=== PATIENT | male | born 2000 | race Caucasian/White ===

== ENCOUNTER 2020-12-12 10:24 | Outpatient (CLI) | payer BC, SELFPAY ==
--- NOTE | 2020-12-12 11:00 | ECG_ITS ---
Measurements Intervals [place] Rate: 103 P: 66 IA: 155 QRS: 95 QRSD: 110 T: 45 QT: 281 QTc: 369 Interpretive Statements SINUS TACHYCARDIA RIGHT AXIS DEVIATION INTRAVENTRICULAR CONDUCTION DELAY POOR R WAVE PROGRESSION, ANTERIOR LEADS BASELINE ARTIFACT- I, III, AVR, AVL, AVF BORDERLINE ECG Electronically Signed On 12-12-2020 10:48:20 CDT by Jaspreet Ruiz D.O.
== END 2020-12-12 10:25 | disposition home or self-care (01) ==
LOC: ANHSURGERY 10:29
PROVIDERS: PCP Internal Medicine; Visit Provider Otolaryngology
DX: Z01.818 Encounter for other preprocedural examination (principal); I10 Essential (primary) hypertension
CPT/HCPCS: 93005

== ENCOUNTER 2021-03-10 00:41 | Day surgery (SDC) | payer BC, SELFPAY ==
[2020-12-11 15:13] VITALS: BMI 51.0
[2021-03-03 14:40] VITALS: BMI 47.7
--- NOTE | 2021-03-05 07:55 | PM.IMHP ---
H&P: HPI History of Present Illness Date/Time: 03/05/21 07:55 Chief Complaint: Septal deviation, inferior turbinate hypertrophy, nasal congestion, nasal obstruction. Narrative: Patient presents for planned surgical procedures. No change in symptoms. No change in history. Review of Systems Constitutional: Constitutional: Denies fatigue, Denies fever(s) and Denies lethargy Eyes: Eyes: Denies blurry vision and Denies change in vision ENT: Reports as per HPI Cardiovascular: Cardiovascular: Denies chest pain Respiratory: Respiratory: Denies cough Endocrine: Endocrine: Denies fatigue Hematologic/Lymphatic: Hematologic/Lymphatic: Denies easy bleeding, Denies easy bruising and Denies lymphadenopathy Allergic/Immunologic: Allergic/Immunologic: Denies seasonal rhinorrhea [facility] Family History Family History Father Alcohol abuse by father Depression Hypertension Mother Depression Diabetes mellitus Grandparent Depression Thyroid disorder Social History Social History Smoking status: Never smoker Second hand tobacco smoke exposure: No Alcohol intake: never Substance use: former Substance use type: marijuana Other substance usage details: pt stated used daily, stopped four months ago Last use: november 2020 Living arrangements: with family Spiritual care concerns: No Agree to blood products: Yes Meds Home Medications and Allergies Home Medications Medication Instructions Recorded Confirmed Type nystatin 100,000 unit/gram topical 1 applic TOPICAL BID #60 g 07/14/20 12/11/20 Rx powder sertraline 100 mg tablet 100 mg PO DAILY 07/14/20 03/03/21 History amlodipine 5 mg tablet 5 mg PO DAILY #30 tablet 08/11/20 12/11/20 Rx mometasone 1 applic TOPICAL BID 12/11/20 12/11/20 History venlafaxine 150 mg PO DAILY 12/12/20 12/12/20 History Allergies Allergy/AdvReac Type Severity Reaction Status Date / Time vancomycin Allergy Intermediate SWELLING/ITCHING/ ELIO Verified 03/03/21 14:36 SYNDROME Exam Const: General: cooperative, healthy appearing, comfortable, well developed and alert HENMT: Head: normal to inspection, normocephalic and atraumatic Ears: hearing grossly normal bilaterally, external ears normal, TM's normal bilaterally and EAC's normal General nose exam: Normal external nose present, Normal nares present, No nasal polyps present and Other nasal findings present ( Inferior turbinate hypertrophy, septal deviation) Face and sinus: normal facial exam Mouth: Yes Normal oral and palatal mucosa present, Yes lip normal, Yes tongue normal, Yes oropharynx normal and Yes moist mucous membranes Teeth and gingiva: dentition normal and gingiva normal Throat: posterior oropharynx normal, tonsils normal and uvula midline Eyes: General: appearance normal, both eyes and all related structures Periorbital: periorbital findings normal Eyelids: eyelids normal Conjunctivae: conjunctivae normal Sclera: sclerae normal Neck: Neck: normal visual inspection, full ROM and no lymphadenopathy Thyroid: thyroid normal Lymphatic: no lymphadenopathy noted Resp: Effort & Inspection: normal respiratory effort and able to speak in complete sentences Cardio: Jugular venous distension: no JVD Neuro: Cranial nerves: Yes CN's II-XII intact bilaterally Assessment and Plan Assessment and plan (1) Nasal septal deviation: Code(s): J34.2 - Deviated nasal septum Status: Acute Assessment and Plan: plan is for the OR for endoscopic assisted septoplasty and inferior turbinate reduction, total operative time 1:00 a.m.. Risks were discussed including failure to resolve symptoms for laid to the valve, bleeding infection blindness CSF leak brain damage change in vision postoperative bleeding postoperative pain need to miss work septal perforation. Patient voiced understanding of
--- NOTE | 2021-03-09 16:18 | WPDANESEPPF ---
Anes - Initial Pre Proc Eval Procedure: Operation Date: 03/10/21 10:00 Proposed Procedures p Septoplasty - Gilberto Rodríguez MD s Bilateral Inferior Turbinectomy - Gilberto Rodríguez MD Date/Time: 03/09/21 16:18 Surgeon: Gilberto Rodríguez MD Pre Op Diagnosis: septal deviation, turbinate hypertrophy Patient Data Age: 20 Gender: M Height: 1.73 m Weight: 142.4 kg Allergies Allergy/AdvReac Type Severity Reaction Status Date / Time vancomycin Allergy Intermediate SWELLING/ITCHING/ ELIO Verified 03/10/21 07:55 SYNDROME Home Medications Medication Instructions Recorded Confirmed Type nystatin 100,000 unit/gram topical 1 applic TOPICAL BID #60 g 07/14/20 03/10/21 Rx powder sertraline 100 mg tablet 100 mg PO DAILY 07/14/20 03/10/21 History amlodipine 5 mg tablet 5 mg PO DAILY #30 tablet 08/11/20 03/10/21 Rx mometasone 1 applic TOPICAL BID 12/11/20 12/11/20 History venlafaxine 150 mg PO DAILY 12/12/20 03/10/21 History Patient hx anesthesia problems: none Family hx anesthesia problems: none Results Review: All pre-operative results and documents have been reviewed as part of the pre-operative evaluation. [facility] Past Medical History Medical History (Updated 03/09/21 @ 16:19 by Tyler Dean MD) Anxiety Depression Elevated blood pressure reading in office without diagnosis of hypertension HTN (hypertension) Morbid obesity Morbid obesity with BMI of 45.0-49.9, adult Nasal folliculitis Nasal obstruction Psoriasis Tinea corporis Family History Family History Father Alcohol abuse by father Depression Hypertension Mother Depression Diabetes mellitus Grandparent Depression Thyroid disorder Social History Social History Smoking status: Never smoker Second hand tobacco smoke exposure: No Alcohol intake: never Substance use: former Substance use type: marijuana Other substance usage details: pt stated used daily, stopped four months ago Last use: november 2020 Living arrangements: with family Spiritual care concerns: No Agree to blood products: Yes Anes - Eval Final PreProcedure Day of Procedure 03/09/21 16:18 Patient weight: morbidly obese Heart: regular rate and rhythm Lungs: clear to auscultation and normal air movement Airway: Mallampati scale class II Neurological: alert and oriented Last oral intake: >/= 8 hours ASA classification: III Emergent: no Anesthetic plan: proceed Anesthesia type and monitoring: general ETT Results Review: All pre-operative results and documents have been reviewed as part of the pre-operative evaluation. Informed Consent: The patient's anesthetic plan and its attendant risks and benefits were discussed with the patient/family/POA. Questions were solicited and answers provided to the satisfaction of the patient/family/POA.
[2021-03-10] VITALS (7 sets, daily range): BP systolic 141–162; BP diastolic 68–94; PULSE 85–114; RESP 18–26; TEMP 36.9–37; O2SAT 92–99
--- NOTE | 2021-03-10 07:09 | WPDHPUPDATE1 ---
History and Physical Update Update Date/Time: 03/10/21 07:09 History and Physical has been reviewed, including an updated exam of the patient. There are NO changes in the patient's condition. Risks, benefits, and alternatives have been discussed and questions answered. Patient agrees to proceed with procedure.
[2021-03-10] MEDS: ACETAMINOPHEN 500 MG TABLET 1000 MG PO (08:00)
[2021-03-10] MEDS: LACTATED RINGERS 1,000 ML 30 ML IV CONT ×2 (08:35→11:03)
[2021-03-10] MEDS: ceFAZolin 3 GM/D5W 100 ML 100 ML IVPB (09:42)
[2021-03-10] MEDS: OXYMETAZOLINE HCL 0.05% NAS 15 ML BTL (*BKC) 1 SPRAY NASAL (10:01)
[2021-03-10] MEDS: LIDO 1%/EPINEPHRINE 1:100,000 50 ML VIAL 10 ML INFILTRATE (10:30)
--- NOTE | 2021-03-10 11:20 | W.PM.PROC2 ---
Procedure Note - Detailed Date of Procedure 03/10/21 Pre-op Diagnosis septal deviation, turbinate hypertrophy, nasal obstruction, nasal congestion Post-op Diagnosis same Procedure Performed 1. Endoscopic assisted septoplasty 2. Bilateral inferior turbinate submucosal resection with outfracture Surgeon Gilberto Rodríguez MD Anesthesia general Indications See above Findings Left posterior septal deviation bilateral inferior turbinate hypertrophy Description of Procedure The patient was correctly identified consent verified in the preoperative holding area. Patient brought to operating room. Time-out performed. Patient prepped and draped for the aforementioned procedure. Second time-out performed. Afrin-soaked pledgets placed in bilateral nasal passages allowed to sit for 5 minutes then removed. Aforementioned findings noted under and 0 degree endoscopic guidance. 8 cc of 1% lidocaine with 1 100,000 parts epinephrine injected in the bilateral nasal septum in the submucoperichondrial plane. Osorio incision made on the left left mucoperichondrial flap elevated. Antione made with 15 blade. Seven [place] suction utilized to elevate flap. Septum crossed over the caudal elevator. No perforations thus far. Right-sided flap elevated. Deviated nasal septum removed with combination of osteotome Alexis Conde Balta and D blade. Antione incision closed with 3 interrupted 5 0 fast gut sutures. Small tear inferiorly. Inferior turbinates entered anteriorly following application or injection of 1% lidocaine with 100,000 parts epinephrine. Entered anteriorly using 2 mm turbinate blade on the microdebrider. Debrided in the submucosal plane. Outfractured using a [place] elevator. Good reduction noted. Posterior mulberry tips noted. These were cauterized using suction Bovie electrocautery at a setting of 15. Even better reduction following cautery. Hemostasis excellent. Posterior nasal passages suction to the posterior choana. No further bleeding. Total blood loss approximately 6 cc. Patel splints placed and sutured anteriorly using a 3-0 mattress nylon suture. This marked the end of the case. Care the patient was turned over to Anesthesiology. There were no complications. I performed all dictated portions of the procedure. Estimated Blood Loss -5.0 Drains No Packing No Pathology none sent Complications No immediate complications Condition stable Disposition PACU
== END 2021-03-10 12:48 | disposition home or self-care (01) ==
PROVIDERS: PCP Internal Medicine; Visit Provider Otolaryngology
PROC: (CPT 30520; principal; 2021-03-10 10:00)
PROC: (CPT 30140; 2021-03-10 10:00)
DX: J34.2 Deviated nasal septum (principal); J34.3 Hypertrophy of nasal turbinates; R09.81 Nasal congestion; I10 Essential (primary) hypertension; F41.8 Other specified anxiety disorders; L40.9 Psoriasis, unspecified; E66.01 Morbid (severe) obesity due to excess calories; Z68.42 Body mass index [BMI] 45.0-49.9, adult
CPT/HCPCS: 30140; 30520; A9270; J0330; J0690; J1100; J2250; J2405; J2704; J3010; J7120

== ENCOUNTER 2021-03-11 17:28 | Emergency (ER) | payer BC, SELFPAY ==
[2021-03-11 17:33] VITALS: BP 149/73; PULSE 99; RESP 18; TEMP 37.2; O2SAT 100
--- NOTE | 2021-03-11 17:45 | ED.URI ---
HPI - URI/Sore Throat General Chief Complaint: Upper Respiratory Infection Stated Complaint: hurts to breathe/joint pain s/p surgery Source: patient and family Mode of arrival: ambulatory Limitations: no limitations History of Present Illness HPI Narrative: Augusto is a 20-year-old male patient who ambulated into the [facility]. Patient states yesterday he had a septoplasty turbinectomy done by Dr. Rodríguez. Patient states around 1230 he felt like it hurts to take a deep breath and felt sore throat pain and joint pain. Patient states his fever. for at home was 97.6 patient denies any shortness of breath, denies any other symptoms at all. Patient is accompanied by his grandmother who states he has no symptoms whatsoever. MD elicited complaint: sore throat Related Data Home Medications Medication Instructions Recorded Confirmed sertraline 100 mg tablet 100 mg PO DAILY 07/14/20 03/10/21 mometasone 1 applic TOPICAL BID 12/11/20 12/11/20 venlafaxine 150 mg PO DAILY 12/12/20 03/10/21 Allergies Allergy/AdvReac Type Severity Reaction Status Date / Time vancomycin Allergy Intermediate SWELLING/ITCHING/ ELIO Verified 03/10/21 07:55 SYNDROME Review of Systems Review of Systems: CONSTITUTIONAL: Denies body aches, fever, chills, or sweats. EYES: Denies visual changes, redness, or discharge. ENT: Denies rhinorrhea, congestion, +sore throat, denies otalgia. CARDIOVASCULAR: Denies chest pain, palpitations, or edema. RESPIRATORY: Denies cough or dyspnea. states he has pain when taking a deep breath, denies shortness of breath GASTROINTESTINAL: Denies abdominal pain, nausea, vomiting, or diarrhea. GENITOURINARY: Denies dysuria or hematuria. SKIN: Denies rash, itching, or wounds. MUSCULOSKELETAL: Denies back pain, joint pain, or myalgia. NEUROLOGIC: Denies headache, numbness, tingling, or weakness. PSYCH: Denies depression or anxiety. All systems reviewed & are unremarkable except as noted in HPI and below PMFSH Past Medical History Medical History Anxiety Depression Elevated blood pressure reading in office without diagnosis of hypertension HTN (hypertension) Morbid obesity Morbid obesity with BMI of 45.0-49.9, adult Nasal folliculitis Nasal obstruction Psoriasis Tinea corporis Family History Family History Father Alcohol abuse by father Depression Hypertension Mother Depression Diabetes mellitus Grandparent Depression Thyroid disorder Social History Social History Smoking status: Never smoker Second hand tobacco smoke exposure: No Alcohol intake: never Substance use: former Substance use type: marijuana Other substance usage details: pt stated used daily, stopped four months ago Last use: november 2020 Spiritual care concerns: No Agree to blood products: Yes Exam Narrative: GENERAL: Well-appearing, well-nourished, and in no acute distress. HEAD: Normocephalic, atraumatic. EYES: EOMI. No redness or drainage. Conjunctivae normal. ENT: Mucous membranes pink and moist. Nares with surgical packing bilaterally. No rhinorrhea. TMs normal bilaterally. Throat normal. Uvula midline. NECK: Normal AROM. Supple. No lymphadenopathy. CHEST: No respiratory distress. Clear to auscultation. HEART: Regular rate and rhythm. No murmur appreciated. Normal peripheral pulses. MUSCULOSKELETAL: No bony tenderness. EXTREMITIES: Normal range of motion. No edema. SKIN: Warm, dry, no rash. Capillary refill normal. Normal skin turgor. NEURO: No focal deficits. Alert and oriented x3. Gait steady. PSYCH: Normal affect. No signs of depression or anxiety. Course Vital Signs Vital signs: Vital Signs Temperature 37.2 C 03/11/21 17:33 Pulse Rate 99 03/11/21 17:33 Respiratory Rate 18 03/11/21 17:33 Blood Pressure 149/73 H 03/11/21
== END 2021-03-11 18:05 | disposition home or self-care (01) ==
PROVIDERS: Emergency Provider Nurse Practitioner Family; PCP Internal Medicine
DX: B34.9 Viral infection, unspecified (principal); I10 Essential (primary) hypertension; E66.01 Morbid (severe) obesity due to excess calories; Z68.42 Body mass index [BMI] 45.0-49.9, adult; F41.9 Anxiety disorder, unspecified; F32.A Depression, unspecified
CPT/HCPCS: 99211; G0463

== ENCOUNTER → 2021-06-04 02:06 | Outpatient (CLI) | payer BC, SELFPAY ==
[2021-06-04 15:01] LABS: Influenza A QL RT-PCR Negative (Negative); Influenza B QL RT-PCR Negative (Negative)
[2021-06-04 21:13] LABS: SARS-CoV-2 RNA PCR Negative
== END ==
PROVIDERS: PCP Internal Medicine; Visit Provider Internal Medicine
DX: R09.89 Other specified symptoms and signs involving the circulatory and respiratory systems (principal); Z20.822 Contact with and (suspected) exposure to COVID-19
CPT/HCPCS: 87502; C9803; U0003; U0005

== ENCOUNTER 2021-06-05 11:50 | Outpatient (CLI) | payer BC, SELFPAY ==
--- NOTE | ~2021-06-05 | XR_ITS ---
XR chest 2V DATE: 06/05/2021 12:03 INDICATION: Cough. Bronchitis. TECHNIQUE: PA and lateral views COMPARISON: None FINDINGS: Normal heart size. No hilar or mediastinal enlargement. No pulmonary infiltrate or consolid ation, pleural effusion or pulmonary vascular congestion or pneumothorax. IMPRESSION: Negative Reviewed, dictated and finalized at location A. [employer] IMPRESSION: Negative
== END 2021-06-05 11:51 | disposition home or self-care (01) ==
LOC: ANHIMG 11:53
PROVIDERS: PCP Internal Medicine; Visit Provider Internal Medicine
DX: J40 Bronchitis, not specified as acute or chronic (principal)
CPT/HCPCS: 71046

== ENCOUNTER 2021-06-22 20:47 | Emergency (ER) | payer BC, SELFPAY ==
--- NOTE | ~2021-06-22 | CT_ITS ---
EXAMINATION: CT abdomen pelvis w con DATE: 06/22/2021 22:19 INDICATION: Right lower quadrant abdominal pain. TECHNIQUE: Computed tomography (CT) of the abdomen and pelvis was performed with 100 mL Omnipaque 350 intravenous contrast. Automated exposure control and iterative reconstruction technique were employe d. The dose-length product was 2485.56 mGy-cm. COMPARISON: None. FINDINGS: The visualized portions of the lung bases are clear without pneumonia or pleural effusion. The heart size is normal. No pericardial effusion. The liver, gallbladder, spleen, pancreas, adrenal glands, and kidneys are normal. There are no dilated loops of bowel. The appendix is normal. There ar e no pathologically enlarged lymph nodes. There is no free intraperitoneal fluid. There are a few anisha ign bone islands in the pelvis. There are chronic bilateral L5 pars defects. There is 3 mm anterolist hesis of L5 on S1. There are Schmorl's nodes at most levels. IMPRESSION: 1. No etiology for the patient's symptoms. Reviewed, dictated and finalized at location E. [facility]
[2021-06-22 20:54] VITALS: BP 159/92; PULSE 77; RESP 20; TEMP 37.1; O2SAT 100
[2021-06-22 21:50] LABS: Basophils Absolute Auto 0.1 K/mm3 (0.0-0.1); Basophils Percent Auto 0.6 % (0.2-1.2); Eosinophils Absolute Auto 1.2 K/mm3 (0-0.3); Eosinophils Percent Auto 9.9 % (0-4.4); Hemoglobin 12.2 g/dL (14.0-18.0); Immature Granulocyte Absolute 0.06 K/mm3 (0.00-0.031); Immature Granulocyte Percent A 0.5 % (0-0.5); Lymphocytes Percent Auto 15.4 % (18.3-44.2); Mean Corpuscular HGB Conc 29.8 g/dl (32-36); Mean Corpuscular Hemoglobin 22.8 pg (26-34); Mean Corpuscular Volume 76.5 fl (80-100); Mean Platelet Volume 10.7 fl (7.4-10.4); Monocytes Absolute Auto 1.1 K/mm3 (0.1-0.6); Monocytes Percent Auto 8.5 % (2.6-8.5); Neutrophils Percent Auto 65.1 % (45.5-73.1); Platelet Count Result 373 k/mm3 (150-375); Red Blood Count 5.36 M/mm3 (4.6-6.20); Red Cell Distribution Width 15.6 % (11.5-14.5); White Blood Count 12.3 K/mm3 (4.5-10.0)
[2021-06-22 21:55] LABS: Add Urine Microscopic? NO; Appearance Urine Clear (Clear); Bilirubin Urine Negative (Negative); Blood Urine Negative (Negative); Color Urine Yellow (Yellow); Glucose Urine UA Negative (Negative); Ketones Urine Negative (Negative); Leukocyte Esterase Ur Negative LEU/UL (Negative); Nitrate Urine Negative (Negative); Protein Urine Negative (Negative); Specific Grav Ur 1.021 (1.001-1.035); Urobilinogen Urine Negative mg/dL (<2.0)
[2021-06-22 21:59] LABS: Platelet Estimate Adequate (Adequate)
[2021-06-22 22:00] LABS: Alanine Aminotransferase 37 U/L (4-50); Albumin Level 4.6 g/dL (3.5-5.1); Alkaline Phosphatase 107 U/L (38-126); Anion Gap 5 mmol/L (8-16); Aspartate Amino Transferase 33 U/L (17-59); Bilirubin,Total 0.4 mg/dL (0.2-1.3); Blood Urea Nitrogen 11 mg/dL (9-20); Calcium 9.1 mg/dL (8.4-10.2); Carbon Dioxide 27 mmol/L (22-30); Chloride 107 mmol/L (98-107); Estimated CRCL calculation 211 ml/min; Estimated Glomerular Filt Rate > 60; Glucose 97 mg/dL (65-110); Hypochromasia 1+ (NORMAL); Ovalocytes 1+ (NORMAL); Potassium 4.3 mmol/L (3.4-5.0); Sodium 139 mmol/L (137-145)
--- NOTE | 2021-06-22 22:42 | ED.ABDPAIN ---
HPI - Abdominal Pain General Chief Complaint: Abdominal Pain Stated Complaint: RLQ abdominal pain Time Seen by Provider: 06/22/21 21:34 Source: patient and RN notes reviewed Mode of arrival: ambulatory History of Present Illness HPI narrative: 20-year-old male presenting to the emergency department for evaluation of intermittent right sided abdominal pain. Patient had been following up with his primary care physician for this pain and did have an outpatient CT scan ordered. Patient states that the right lower quadrant pain became significantly worse today so he presented to the emerge department for evaluation. Patient states he was also concerned about some ecchymosis on his abdominal wall. Upon arrival to the emergency department patient states that his pain has currently resolved. Patient states when the pain did occur that he sometimes did have some radiation down to his right testicle. Patient denies any prior history of kidney stones. Patient does have recent history of surgery by ENT Related Data Home Medications Medication Instructions Recorded Confirmed sertraline 100 mg tablet 100 mg PO DAILY 07/14/20 06/05/21 mometasone 1 applic TOPICAL BID 12/11/20 06/05/21 venlafaxine 150 mg PO DAILY 12/12/20 06/05/21 Allergies Allergy/AdvReac Type Severity Reaction Status Date / Time vancomycin Allergy Intermediate SWELLING/ITCHING/ ELIO Verified 06/22/21 20:59 SYNDROME Review of Systems Review of Systems: CONSTITUTIONAL: Denies fever, chills, or sweats. EYES: Denies visual changes, redness, or discharge. ENT: Denies rhinorrhea, congestion, sore throat, or otalgia. CARDIOVASCULAR: Denies chest pain, palpitations, or edema. RESPIRATORY: Denies cough or dyspnea. GASTROINTESTINAL: Right lower quadrant abdominal pain, currently resolved GENITOURINARY: Denies dysuria or hematuria. SKIN: Reports of ecchymosis on abdomen MUSCULOSKELETAL: Denies back pain, joint pain, or myalgia. NEUROLOGIC: Denies headache, numbness, or weakness. PSYCHIATRIC: Denies anxiety or depression. [facility] Past Medical History Medical History Anxiety Depression Elevated blood pressure reading in office without diagnosis of hypertension HTN (hypertension) Morbid obesity Morbid obesity with BMI of 45.0-49.9, adult Nasal folliculitis Nasal obstruction Psoriasis Tinea corporis Family History Family History Father Alcohol abuse by father Depression Hypertension Mother Depression Diabetes mellitus Grandparent Depression Thyroid disorder Social History Social History Smoking status: Never smoker Second hand tobacco smoke exposure: No Alcohol intake: never Substance use: former Substance use type: marijuana Other substance usage details: pt stated used daily, stopped four months ago Last use: november 2020 Spiritual care concerns: No Agree to blood products: Yes Exam Narrative: APPEARANCE: Well appearing, no pain, no distress, well-nourished. HEAD: normocephalic, atraumatic. EYES: PERRLA/EOMI, conjunctivae clear. RESPIRATORY: Airway patent, respirations nonlabored. Clear to auscultation bilaterally, no rales, rhonchi, wheezing. CARDIOVASCULAR: Regular rate and rhythm without murmurs rubs or gallops. ABDOMINAL: Soft, nontender, nondistended, normal bowel sounds MUSCULOSKELETAL: Moves all extremities. Strength/ROM intact, No edema, No calf tenderness. SKIN: Warm, dry. Normal Color, no bruising or ecchymosis on abdominal wall Course Course Emergency Course: Patient was updated the results of the CT scan and labs. All questions concerns were addressed. Patient denies any current abdominal pain. Patient was encouraged to continue to have close follow-up with his primary care physician. Vital Signs Vital signs: Vital Signs Temperature 98.7 F 0
[2021-06-22 23:04] VITALS: BP 133/74; PULSE 84; RESP 18; TEMP 36.7; O2SAT 97
== END 2021-06-22 23:06 | disposition home or self-care (01) ==
PROVIDERS: Emergency Medicine; Emergency Provider Emergency Medicine; PCP Internal Medicine
DX: R10.31 Right lower quadrant pain (principal); F41.9 Anxiety disorder, unspecified; F32.A Depression, unspecified; I10 Essential (primary) hypertension; E66.01 Morbid (severe) obesity due to excess calories; Z68.43 Body mass index [BMI] 50.0-59.9, adult
CPT/HCPCS: 36415; 74177; 80053; 81003; 85025; 99284; Q9967

== ENCOUNTER 2022-01-19 00:46 | Day surgery (SDC) | payer BC, SELFPAY ==
[2022-01-06 12:56] VITALS: BMI 56.9
[2022-01-19] MEDS: LACTATED RINGERS 1,000 ML 150 ML IV CONT (06:26)
--- NOTE | 2022-01-19 06:31 | WPDANESEPPF ---
Anes - Initial Pre Proc Eval Procedure: Operation Date: 01/19/22 07:30 Proposed Procedures p Esophagogastroduodenoscopy & Colonoscopy - Hieu Airas MD Date/Time: 01/19/22 06:31 Surgeon: Hieu Arias MD Pre Op Diagnosis: diarrhea, abdominal pain, KELLI Patient Data Age: 21 Gender: M Height: 1.73 m Weight: 167.9 kg Allergies Allergy/AdvReac Type Severity Reaction Status Date / Time vancomycin Allergy Intermediate SWELLING/ITCHING/ ELIO Verified 01/19/22 06:14 SYNDROME Home Medications Medication Instructions Recorded Confirmed Type nystatin 100,000 unit/gram topical 1 applic topical BID #60 grams 07/14/20 01/06/22 Rx powder sertraline 100 mg tablet 100 mg PO DAILY 07/14/20 01/06/22 History venlafaxine 150 mg 150 mg PO DAILY 12/12/20 01/06/22 History capsule,extended release 24 hr amlodipine 5 mg tablet 5 mg PO DAILY #90 tabs 03/24/21 01/06/22 Rx mupirocin 2 % topical ointment 1 applic topical BID #22 grams 08/10/21 01/06/22 Rx mometasone 0.1 % topical ointment 1 applic topical BID #15 grams 09/24/21 01/06/22 Rx hyoscyamine sulfate 0.125 mg tablet 0.125 mg PO BID diarrhea #60 tabs 11/02/21 01/06/22 Rx ferrous sulfate 325 mg (65 mg 325 mg PO BID #60 tabs 01/05/22 01/06/22 Rx iron) tablet Patient hx anesthesia problems: none Family hx anesthesia problems: none Results Review: All pre-operative results and documents have been reviewed as part of the pre-operative evaluation. [facility] Past Medical History Medical History Anxiety Depression Diarrhea Elevated blood pressure reading in office without diagnosis of hypertension HTN (hypertension) Irritable bowel syndrome with diarrhea Morbid obesity Morbid obesity with BMI of 45.0-49.9, adult Nasal folliculitis Nasal obstruction Psoriasis Tinea corporis Surgical History Surgical History (Updated 01/19/22 @ 06:32 by Nirav Daniel MD) H/O sinus surgery Family History Family History Father Alcohol abuse by father Depression Hypertension Mother Depression Diabetes mellitus Grandparent Depression Thyroid disorder Social History Social History Smoking status: Never smoker Second hand tobacco smoke exposure: No Alcohol intake: never Substance use: never Substance use type: marijuana Other substance usage details: pt stated used daily, stopped four months ago Last use: november 2020 Living arrangements: with family Spiritual care concerns: No Agree to blood products: Yes Anes - Eval Final PreProcedure Day of Procedure 01/19/22 06:31 Patient weight: super morbidly obese Heart: regular rate and rhythm Lungs: clear to auscultation Airway: Mallampati scale class II Neurological: alert and oriented Last oral intake: >/= 8 hours ASA classification: III Emergent: no Anesthetic plan: proceed Anesthesia type and monitoring: general GIVS and standard monitoring Results Review: All pre-operative results and documents have been reviewed as part of the pre-operative evaluation. Informed Consent: The patient's anesthetic plan and its attendant risks and benefits were discussed with the patient/family/POA. Questions were solicited and answers provided to the satisfaction of the patient/family/POA.
--- NOTE | 2022-01-19 07:27 | PM.HPGS ---
History of Present Illness History of Present Illness Consent: Risks, benefits, and alternatives have been discussed and questions answered. Patient agrees to proceed with procedure. Chief complaint: diarrhea, abdominal pain, ROBERTO Narrative: Augusto Benton is a 21 year old male with mild roberto, no overt gib, also loose stools. Never had scopes, he has not started to use iron yet Review of Systems Constitutional: Constitutional: Denies headache(s) and Denies weakness Eyes: Eyes: Denies blurry vision ENT: Reports Normal hearing present, Denies headache(s) and Denies neck pain Cardiovascular: Cardiovascular: Denies chest pain and Denies dyspnea Respiratory: Respiratory: Denies dyspnea Gastrointestinal: Gastrointestinal: Reports no additional gastrointestinal complaints Genitourinary: Genitourinary: Denies dysuria Musculoskeletal: Musculoskeletal: Denies neck pain Integumentary/Breasts: Skin/Breast: Denies dry skin Neurologic: Reports Normal hearing present, Denies headache(s) and Denies weakness Psychiatric: Psychiatric: Denies anxiety Endocrine: Endocrine: Denies change in body appearance Hematologic/Lymphatic: Hematologic/Lymphatic: Denies easy bleeding Allergic/Immunologic: Allergic/Immunologic: Denies urticaria PMFSH Past Medical History Medical History Anxiety Depression Diarrhea Elevated blood pressure reading in office without diagnosis of hypertension HTN (hypertension) Irritable bowel syndrome with diarrhea Morbid obesity Morbid obesity with BMI of 45.0-49.9, adult Nasal folliculitis Nasal obstruction Psoriasis Tinea corporis Surgical History Surgical History (Updated 01/19/22 @ 06:32 by Nirav Daniel MD) H/O sinus surgery Family History Family History Father Alcohol abuse by father Depression Hypertension Mother Depression Diabetes mellitus Grandparent Depression Thyroid disorder Social History Social History Smoking status: Never smoker Second hand tobacco smoke exposure: No Alcohol intake: never Substance use: never Substance use type: marijuana Other substance usage details: pt stated used daily, stopped four months ago Last use: november 2020 Living arrangements: with family Spiritual care concerns: No Agree to blood products: Yes Meds Home Medications and Allergies Home Medications Medication Instructions Recorded Confirmed Type nystatin 100,000 unit/gram topical 1 applic topical BID #60 grams 07/14/20 01/06/22 Rx powder sertraline 100 mg tablet 100 mg PO DAILY 07/14/20 01/06/22 History venlafaxine 150 mg 150 mg PO DAILY 12/12/20 01/06/22 History capsule,extended release 24 hr amlodipine 5 mg tablet 5 mg PO DAILY #90 tabs 03/24/21 01/06/22 Rx mupirocin 2 % topical ointment 1 applic topical BID #22 grams 08/10/21 01/06/22 Rx mometasone 0.1 % topical ointment 1 applic topical BID #15 grams 09/24/21 01/06/22 Rx hyoscyamine sulfate 0.125 mg tablet 0.125 mg PO BID diarrhea #60 tabs 11/02/21 01/06/22 Rx ferrous sulfate 325 mg (65 mg 325 mg PO BID #60 tabs 01/05/22 01/06/22 Rx iron) tablet Allergies Allergy/AdvReac Type Severity Reaction Status Date / Time vancomycin Allergy Intermediate SWELLING/ITCHING/ ELIO Verified 01/19/22 06:14 SYNDROME Exam Const: General: comfortable and no acute distress Other: obese HENMT: General nose exam: Normal nares present Eyes: General: appearance normal, both eyes and all related structures Neck: Neck: no JVD Resp: Auscultation: clear to auscultation bilaterally Cardio: Rate: regular rate Rhythm: regular rhythm GI: Inspection: non-distended GI Palp: Yes Soft to palpation Skin: General skin exam: normal color Neuro: General: gait normal Speech: normal speech Extrem: General: normal to inspection Psyc
--- NOTE | 2022-01-19 07:47 | SUR.OPER ---
EGD ended at 741. Colonoscopy began at 746.
[2022-01-19 08:02] VITALS: BP 155/97; PULSE 102; RESP 19; O2SAT 97
[2022-01-19 08:12] VITALS: BP 138/89; PULSE 94; RESP 18; O2SAT 96
[2022-01-19 08:22] VITALS: BP 155/96; PULSE 85; RESP 20; O2SAT 99
== END 2022-01-19 08:30 | disposition home or self-care (01) ==
PROVIDERS: PCP Internal Medicine; Visit Provider Internal Medicine Gastroenterology
PROC: 0DJ08ZZ Inspection of Upper Intestinal Tract, Via Natural or Artificial Opening Endoscopic (ICD-10-PCS; CPT 43235; principal; 2022-01-19 07:30)
DX: D64.9 Anemia, unspecified (principal); K58.9 Irritable bowel syndrome, unspecified; K29.50 Unspecified chronic gastritis without bleeding; R14.0 Abdominal distension (gaseous); K58.0 Irritable bowel syndrome with diarrhea; F41.9 Anxiety disorder, unspecified; F32.A Depression, unspecified; I10 Essential (primary) hypertension; L40.9 Psoriasis, unspecified; F12.90 Cannabis use, unspecified, uncomplicated
CPT/HCPCS: 45380; 43239; 88305; 88342; J2704; J7120

== ENCOUNTER 2022-02-03 09:42 | Outpatient (CLI) | payer BC, SELFPAY ==
[2022-02-03 12:21] LABS: Folic Acid 8.1 ng/mL (2.76->20)
== END 2022-02-03 09:43 | disposition home or self-care (01) ==
LOC: ANHLAB 09:44
PROVIDERS: PCP Internal Medicine; Visit Provider Nurse Practitioner Family
DX: D64.9 Anemia, unspecified (principal)
CPT/HCPCS: 36415; 82607; 82746

== ENCOUNTER 2022-03-09 12:48 | Emergency (ER) | payer BC, SELFPAY ==
[2022-03-09 12:52] VITALS: BP 173/101; PULSE 106; RESP 20; TEMP 36.5; O2SAT 95
[2022-03-09 12:56] VITALS: BP 173/101; PULSE 101; RESP 20; O2SAT 100
--- NOTE | 2022-03-09 13:00 | ED.EPISTAXIS ---
HPI - Epistaxis General Chief complaint: Epistaxis Stated complaint: Nose Bleed Time Seen by Provider: 03/09/22 12:52 History of Present Illness HPI Narrative: 21-year-old male history of hypertension and epistaxis presents to the emergency room for evaluation of nosebleed. Patient states he woke up this morning and began experiencing a nosebleed in his left nare. Patient has been evaluated by ENT within the last month, there is concern that he might have a posterior bleed. Related Data Home Medications Medication Instructions Recorded Confirmed sertraline 100 mg tablet 100 mg PO DAILY 07/14/20 02/05/22 venlafaxine 150 mg 150 mg PO DAILY 12/12/20 02/05/22 capsule,extended release 24 hr Allergies Allergy/AdvReac Type Severity Reaction Status Date / Time vancomycin Allergy Intermediate SWELLING/ITCHING/ ELIO Verified 03/09/22 12:57 SYNDROME Review of Systems Review of Systems: CONSTITUTIONAL: Denies fever, chills, or sweats. EYES: Denies visual changes, redness, or discharge. ENT: Reports epistaxis CARDIOVASCULAR: Denies chest pain, palpitations, or edema. RESPIRATORY: Denies cough or dyspnea. GASTROINTESTINAL: Denies abdominal pain, nausea, vomiting, or diarrhea. GENITOURINARY: Denies dysuria or hematuria. SKIN: Denies rash or itching. MUSCULOSKELETAL: Denies back pain, joint pain, or myalgia. NEUROLOGIC: Denies headache, numbness, dizziness, or weakness. PSYCHIATRIC: Denies anxiety or depression. PMFSH Past Medical History Medical History Anxiety Depression Diarrhea Elevated blood pressure reading in office without diagnosis of hypertension HTN (hypertension) Irritable bowel syndrome with diarrhea Morbid obesity Morbid obesity with BMI of 45.0-49.9, adult Nasal folliculitis Nasal obstruction Psoriasis Tinea corporis Surgical History Surgical History H/O sinus surgery Family History Family History Father Alcohol abuse by father Depression Hypertension Mother Depression Diabetes mellitus Grandparent Depression Thyroid disorder Social History Social History Smoking status: Never smoker Second hand tobacco smoke exposure: No Alcohol intake: never Substance use: never Substance use type: marijuana Other substance usage details: pt stated used daily, stopped four months ago Last use: november 2020 Spiritual care concerns: No Agree to blood products: Yes Exam Narrative: GENERAL: Well-appearing, well-nourished, no physical limitations, and in no acute distress. HEAD: Normocephalic, atraumatic. EYES: Conjunctivae normal, PERRLA and EOMI. ENT: NECK: Supple. No carotid bruits or JVD CHEST: Clear to auscultation. No respiratory distress. No wheezes rales or rhonchi. HEART: Regular rate and rhythm. No murmur heard. EXTREMITIES: Normal range of motion. No edema. No clubbing or cyanosis SKIN: Warm, dry, no rash. No noted wounds NEURO: No focal deficits. Alert and oriented x3. MAEW. CN's II-XI intact bilaterally, normal gait PSYCH: Cooperative. Normal mood and affect. Course Vital Signs Vital signs: Vital Signs Temperature 36.5 C 03/09/22 12:52 Pulse Rate 106 H 03/09/22 12:52 Respiratory Rate 20 03/09/22 12:52 Blood Pressure 173/101 H 03/09/22 12:52 Pulse Oximetry 95 03/09/22 12:52 Temperature 36.5 C 03/09/22 12:52 Pulse Rate 92 03/09/22 14:01 Respiratory Rate 20 03/09/22 14:01 Blood Pressure 140/76 03/09/22 14:01 Pulse Oximetry 99 03/09/22 14:01 Oxygen Delivery Room Air 03/09/22 12:56 MDM - Epistaxis MDM Narrative Medical decision making narrative: Epistaxis resolved prior to TXA administration or Rhino Rocket insertion. Patient will be given instructions on when to return to the emergency
[2022-03-09] MEDS: OXYMETAZOLINE HCL 0.05% NAS 15 ML BTL (*BKC) 1 SPRAY NASAL (13:14)
[2022-03-09 13:36] VITALS: BP 151/90; PULSE 96; RESP 18; O2SAT 99
[2022-03-09 13:39] LABS: Basophils Percent Auto 0.6 % (0.2-1.2); Eosinophils Absolute Auto 0.5 K/mm3 (0-0.3); Eosinophils Percent Auto 6.9 % (0-4.4); Hematocrit 38.7 % (42.0-52.0); Hemoglobin 11.6 g/dL (14.0-18.0); Immature Granulocyte Absolute 0.03 K/mm3 (0.00-0.031); Immature Granulocyte Percent A 0.4 % (0-0.5); Lymphocytes Absolute Auto 1.11 K/mm3 (0.9-3.2); Lymphocytes Percent Auto 15.7 % (18.3-44.2); Mean Corpuscular Hemoglobin 22.7 pg (26-34); Mean Corpuscular Volume 75.9 fl (80-100); Mean Platelet Volume 10.6 fl (7.4-10.4); Monocytes Absolute Auto 0.7 K/mm3 (0.1-0.6); Monocytes Percent Auto 9.2 % (2.6-8.5); Neutrophils Absolute Auto 4.8 K/mm3 (1.3-6.7); Neutrophils Percent Auto 67.2 % (45.5-73.1); Platelet Count Result 315 k/mm3 (150-375); White Blood Count 7.1 K/mm3 (4.5-10.0)
[2022-03-09 13:49] LABS: INR 1.1; Prothrombin Time 13.5 Seconds (11.1-14.7)
[2022-03-09 13:50] LABS: Partial Thromboplastin Time 29.7 SECONDS (22.3-36.8)
--- NOTE | 2022-03-09 13:54 | PC.NURSE ---
No bleeding since rhino rocket placed.
[2022-03-09 14:01] VITALS: BP 140/76; PULSE 92; RESP 20; O2SAT 99
[2022-03-09 14:12] VITALS: BP 140/76; PULSE 99; RESP 16; O2SAT 98
== END 2022-03-09 14:14 | disposition home or self-care (01) ==
PROVIDERS: Emergency Provider Nurse Practitioner Family; PCP Internal Medicine
DX: R04.0 Epistaxis (principal); I10 Essential (primary) hypertension; K58.0 Irritable bowel syndrome with diarrhea; E66.01 Morbid (severe) obesity due to excess calories; Z68.39 Body mass index [BMI] 39.0-39.9, adult; F41.9 Anxiety disorder, unspecified; F32.A Depression, unspecified
CPT/HCPCS: 36415; 85025; 85610; 85730; 99283; A9270

== ENCOUNTER 2022-12-14 13:00 | Outpatient (RCR) | payer BC, SELFPAY ==
[2022-10-05 08:19] VITALS: BMI 59.3
[2022-10-05 10:23] VITALS: BMI 59.3
[2022-12-14 13:21] VITALS: BMI 58.4; BMI 59.3
== END 2022-12-20 10:56 | disposition home or self-care (01) ==
LOC: ANHDMC 13:00
PROVIDERS: PCP Nurse Practitioner; Visit Provider Nurse Practitioner Family
DX: E66.01 Morbid (severe) obesity due to excess calories (principal); Z71.3 Dietary counseling and surveillance
CPT/HCPCS: 97802; 97803

== ENCOUNTER 2023-01-01 07:06 | Emergency (ER) | payer BC, SELFPAY ==
[2023-01-01] VITALS (25 sets, daily range): BP systolic 135–155; BP diastolic 83–102; PULSE 78–115; RESP 12–27; TEMP 36.4; O2SAT 94–99
--- NOTE | 2023-01-01 09:14 | ED.GENADULT ---
HPI - General Adult General Chief complaint: Epistaxis Stated complaint: nosebleed, dizzy Time Seen by Provider: 01/01/23 08:57 Source: patient Mode of arrival: ambulatory Limitations: no limitations History of Present Illness HPI narrative: This is a 22-year-old male who presents to the ED with chief complaint of epistaxis beginning yesterday and sporadically intermittent till this morning. As I interview the patient he states the bleeding has completely stopped. He was feeling a little bit nauseous and dizzy earlier but these things have also completely resolved. He states he has a follow-up with Dr. Rodríguez (ENT) in 5 days. He states he is out of Afrin. Denies syncope, headache, vomiting. Related Data Home Medications Medication Instructions Recorded Confirmed sertraline 100 mg tablet 100 mg PO DAILY 07/14/20 12/31/22 venlafaxine 150 mg 150 mg PO DAILY 12/12/20 12/31/22 capsule,extended release 24 hr Allergies Allergy/AdvReac Type Severity Reaction Status Date / Time vancomycin Allergy Intermediate SWELLING/ITCHING/ ELIO Verified 01/01/23 07:19 SYNDROME Review of Systems Review of Systems: All systems as dictated in [facility] Past Medical History Medical History Anxiety Depression Diarrhea HTN (hypertension) Irritable bowel syndrome with diarrhea Morbid obesity Morbid obesity with BMI of 45.0-49.9, adult Nasal folliculitis Nasal obstruction Psoriasis Tinea corporis Surgical History Surgical History H/O sinus surgery Family History Family History Father Alcohol abuse by father Depression Hypertension Mother Depression Diabetes mellitus Grandparent Depression Thyroid disorder Social History Social History Smoking status: Never smoker Second hand tobacco smoke exposure: No Alcohol intake: never Substance use: never Substance use type: marijuana Other substance usage details: pt stated used daily, stopped four months ago Last use: november 2020 Lack of Transportation: No Lack of Food: Never True Current Housing: Decline to Answer Concerned About Future Housing: No Difficulty Paying Gas/Electric Bills: Decline to Answer Difficulty Paying for Meds: Decline to Answer Currently Unemployed: Decline to Answer Education: Decline to Answer Difficulty w/ Childcare or Family Care: No Living arrangements: with family Spiritual care concerns: No Agree to blood products: Yes Exam Narrative: GENERAL: Well-appearing, well-nourished, and in no acute distress. HEAD: Normocephalic, atraumatic. EYES: PERRLA and EOMI. ENT: Dried blood in the left nare. Able to visualize the old spot of bleeding and it appears to be clotted at this time. No active bleeding. Mucous membranes moist. Oropharynx without tonsillar hypertrophy exudate or other lesions. NECK: Supple. No adenopathy or masses. CHEST: No respiratory distress. Clear to auscultation. No wheezes rales or rhonchi HEART: Regular rate and rhythm. No murmur heard. Normal peripheral pulses. ABDOMEN: Soft, nontender, nondistended, normal active bowel sounds. MSK: Normal range of motion. No edema. SKIN: Warm, dry, no rash. NEURO: Alert and oriented x3. No focal deficits. PSYCH: Normal mood and affect. Course Vital Signs Vital signs: Vital Signs Temperature 97.6 F 01/01/23 07:07 Pulse Rate 112 H 01/01/23 07:07 Respiratory Rate 18 01/01/23 07:07 Blood Pressure 151/102 H 01/01/23 07:07 Pulse Oximetry 97 01/01/23 07:07 Oxygen Delivery Room Air 01/01/23 07:07 Temperature 97.6 F 01/01/23 07:07 Pulse Rate 101 H 01/01/23 09:50 Respiratory Rate 16 01/01/23 09:50 Blood Pressure 142/88 H 01/01/23 09:50 Pulse Oximetry 98 01/01/23 09
== END 2023-01-01 09:50 | disposition home or self-care (01) ==
PROVIDERS: Emergency Provider Physician Assistant; PCP Family Medicine
DX: R04.0 Epistaxis (principal); I10 Essential (primary) hypertension; K58.0 Irritable bowel syndrome with diarrhea; E66.01 Morbid (severe) obesity due to excess calories; Z68.43 Body mass index [BMI] 50.0-59.9, adult; F32.A Depression, unspecified; F41.9 Anxiety disorder, unspecified
CPT/HCPCS: 99283; A9270

== ENCOUNTER 2023-05-02 10:31 | Outpatient (CLI) | payer BC, SELFPAY ==
[2023-05-02 11:49] LABS: Alanine Aminotransferase 23 U/L (6-50); Albumin Level 4.5 g/dL (3.5-5.1); Alkaline Phosphatase 118 U/L (38-126); Anion Gap 11 mmol/L (8-16); Aspartate Amino Transferase 19 U/L (17-59); Bilirubin,Total 0.5 mg/dL (0.2-1.3); Blood Urea Nitrogen 11 mg/dL (9-20); Carbon Dioxide 25 mmol/L (22-30); Chloride 103 mmol/L (98-107); Estimated Glomerular Filt Rate > 60; Glucose 99 mg/dL (65-110); Potassium 3.6 mmol/L (3.4-5.0); Sodium 139 mmol/L (137-145)
[2023-05-02 12:54] LABS: Folic Acid 5.4 ng/mL (2.76->20)
[2023-05-05 06:59] LABS: Methylmalonic Acid 94 nmol/L (87-318)
[2023-05-05 15:23] LABS: Soluble Transferrin Receptor 2.61 mg/L (0.76-1.76)
== END 2023-05-02 10:32 | disposition home or self-care (01) ==
LOC: ANHLAB 10:33
PROVIDERS: Nurse Practitioner Family; PCP Nurse Practitioner; Visit Provider Internal Medicine Hematology & Oncology
DX: D50.9 Iron deficiency anemia, unspecified (principal)
CPT/HCPCS: 36415; 80053; 82607; 82728; 82746; 83921; 84238

== ENCOUNTER 2023-08-11 09:15 | Outpatient (CLI) | payer BC, SELFPAY ==
[2023-08-11 09:36] LABS: Basophils Percent Auto 0.3 % (0.2-1.2); Eosinophils Absolute Auto 0.5 K/mm3 (0-0.3); Eosinophils Percent Auto 5.5 % (0-4.4); Hematocrit 36.8 % (42.0-52.0); Hemoglobin 11.3 g/dL (14.0-18.0); Immature Granulocyte Absolute 0.05 K/mm3 (0.00-0.031); Immature Granulocyte Percent A 0.6 % (0-0.5); Lymphocytes Absolute Auto 1.35 K/mm3 (0.9-3.2); Lymphocytes Percent Auto 15.2 % (18.3-44.2); Mean Corpuscular HGB Conc 30.7 g/dl (32-36); Mean Corpuscular Hemoglobin 22.7 pg (26-34); Mean Corpuscular Volume 73.9 fl (80-100); Mean Platelet Volume 9.9 fl (7.4-10.4); Monocytes Absolute Auto 0.8 K/mm3 (0.1-0.6); Monocytes Percent Auto 9.2 % (2.6-8.5); Neutrophils Absolute Auto 6.2 K/mm3 (1.3-6.7); Neutrophils Percent Auto 69.2 % (45.5-73.1); Platelet Count Result 363 k/mm3 (150-375); Red Blood Count 4.98 M/mm3 (4.6-6.20); Red Cell Distribution Width 15.9 % (11.5-14.5); White Blood Count 8.9 K/mm3 (4.5-10.0)
[2023-08-11 09:43] LABS: Ovalocytes 1+; Platelet Estimate Adequate (Adequate); Schistocytes None Seen
[2023-08-11 09:44] LABS: Anisocytosis 1+; Microcytosis 1+ (NORMAL); Poikilocytosis 1+
[2023-08-11 10:10] LABS: Alanine Aminotransferase 20 U/L (6-50); Albumin Level 4.3 g/dL (3.5-5.1); Alkaline Phosphatase 99 U/L (38-126); Anion Gap 6 mmol/L (4-12); Aspartate Amino Transferase 24 U/L (17-59); Bilirubin,Total 0.4 mg/dL (0.2-1.3); Blood Urea Nitrogen 11 mg/dL (9-20); Calcium 8.7 mg/dL (8.4-10.2); Carbon Dioxide 28 mmol/L (22-30); Chloride 103 mmol/L (98-107); Estimated Glomerular Filt Rate > 60; Glucose 103 mg/dL (65-110); Potassium 3.9 mmol/L (3.4-5.0); Sodium 137 mmol/L (137-145)
[2023-08-11 10:17] LABS: Iron 33 ug/dL (49-181)
[2023-08-11 10:27] LABS: Percent Iron Saturation 9 % (20-50)
[2023-08-11 12:14] LABS: Folic Acid 6.5 ng/mL (2.76->20)
== END 2023-08-11 09:16 | disposition home or self-care (01) ==
LOC: ANHLAB 09:20
PROVIDERS: Nurse Practitioner Family; PCP Nurse Practitioner; Visit Provider Internal Medicine Hematology & Oncology
DX: D50.9 Iron deficiency anemia, unspecified (principal)
CPT/HCPCS: 36415; 80053; 82607; 82728; 82746; 83540; 83550; 85025

== ENCOUNTER 2023-10-30 21:56 | Emergency (ER) | payer BC, SELFPAY ==
--- NOTE | ~2023-10-30 | XR_ITS ---
EXAMINATION: XR chest 1V portable DATE: 10/30/2023 23:20 INDICATION: Viral syndrome. TECHNIQUE: A single frontal view of the chest was obtained. COMPARISON: Chest 2 views 06/05/2021, CT abdomen and pelvis 06/22/2021 FINDINGS: There is no pneumonia, pleural effusion, or pneumothorax. The heart size is normal. IMPRESSION: 1. No acute cardiopulmonary disease. Reviewed, dictated and finalized at location E.
[2023-10-30 22:01] VITALS: BP 157/80; PULSE 122; RESP 20; TEMP 36.7; O2SAT 98
--- NOTE | 2023-10-30 22:25 | ECG_ITS ---
Test Date: 2023-10-30 22:55:27 Measurements Intervals [place] Rate: 96 P: 63 ME: 169 QRS: 88 QRSD: 110 T: 46 QT: 341 QTc: 433 Interpretive Statements SINUS RHYTHM NONSPECIFIC INTRAVENTRICULAR CONDUCTION DELAY ABNORMAL ECG No previous ECG available for comparison Electronically Signed On 10-31-2023 15:13:01 CDT by Juan A Flores M.D.
--- NOTE | 2023-10-30 22:26 | ED.GENADULT ---
HPI - General Adult General Chief complaint: Unspecified Stated complaint: nose bleed, r ear pain and nausea Time Seen by Provider: 10/30/23 22:09 History of Present Illness HPI narrative: this is a 23-year-old male presenting to ED with flu-like symptoms. Started 3 hours prior to arrival he developed fevers chills nausea vomiting and diarrhea. The symptoms developed after eating a chalupa. He also has some right ear pain. He vomited and then developed a nose bleed although the nose bleed resolved without intervention. Patient is denying chest pain difficulty breathing abdominal pain or urinary symptoms. No sick contacts at home. Related Data Home Medications Medication Instructions Recorded Confirmed sertraline 100 mg tablet 100 mg PO DAILY 07/14/20 07/25/23 venlafaxine 150 mg 150 mg PO DAILY 12/12/20 07/25/23 capsule,extended release 24 hr Allergies Allergy/AdvReac Type Severity Reaction Status Date / Time vancomycin Allergy Intermediate SWELLING/ITCHING/ ELIO Verified 10/30/23 21:57 SYNDROME PMFSH Past Medical History Medical History Anxiety Depression Diarrhea HTN (hypertension) Irritable bowel syndrome with diarrhea Morbid obesity Morbid obesity with BMI of 45.0-49.9, adult Nasal folliculitis Nasal obstruction Psoriasis Psoriatic arthritis Tinea corporis Surgical History Surgical History H/O sinus surgery Family History Family History Father Alcohol abuse by father Depression Hypertension Mother Depression Diabetes mellitus Grandparent Depression Thyroid disorder Social History Social History Smoking status: Never smoker Second hand tobacco smoke exposure: No Alcohol intake: never Substance use: never Substance use type: marijuana Other substance usage details: pt stated used daily, stopped four months ago Last use: november 2020 Lack of Transportation: No Lack of Food: Never True Current Housing: I Have Housing Concerned About Future Housing: No Difficulty Paying Gas/Electric Bills: No Difficulty Paying for Meds: No Currently Unemployed: No Education: High School Diploma/GED Difficulty w/ Childcare or Family Care: No Living arrangements: with family Spiritual care concerns: No Agree to blood products: Yes Exam Narrative: APPEARANCE: No apparent distress. Head: atraumatic. TMs not visible due to cerumen impaction no erythema posterior oropharynx EYES: EOMI, NOSE: Atraumatic NECK: Trachea midline RESPIRATORY: No increased rate of breathing Clear auscultation CARDIOVASCULAR: tachycardic ABDOMINAL: Non-distended soft nontender MUSCULOSKELETAl: No obvious deformities NEURO: Alert. Moving 4/4 extremities SKIN:: Warm, dry. Normal color PSYCHIATRIC: Normal affect Course Vital Signs Vital signs: Vital Signs Temperature 98.0 F 10/30/23 22:01 Pulse Rate 122 H 10/30/23 22:01 Respiratory Rate 20 10/30/23 22:01 Blood Pressure 157/80 H 10/30/23 22:01 Pulse Oximetry 98 10/30/23 22:01 Oxygen Delivery Room Air 10/30/23 22:01 Temperature 98.0 F 10/30/23 22:01 Pulse Rate 104 H 10/30/23 23:28 Respiratory Rate 20 10/30/23 23:28 Blood Pressure 141/79 H 10/30/23 23:28 Pulse Oximetry 98 10/30/23 23:28 Oxygen Delivery Room Air 10/30/23 22:01 Medical Decision Making MDM Narrative Medical decision making narrative: -Course: this is a 23-year-old male presenting with 3 hours of nausea vomiting diarrhea. Workup here unremarkable. Patient initially tachycardic but got fluid resuscitation improved. Given antiemetics with improvement. Patient states he is feeling better and is requesting discharge. He is now tolerating p.o.. Still slightly tachycardic but improved and well vincent
[2023-10-30] MEDS: SODIUM CHLORIDE 0.9% IV 1,000 ML 999 ML IV CONT ×2 (22:35→23:34)
[2023-10-30 22:41] LABS: Basophils Percent Auto 0.3 % (0.2-1.2); Eosinophils Absolute Auto 0.2 K/mm3 (0-0.3); Eosinophils Percent Auto 1.5 % (0-4.4); Hematocrit 43.1 % (42.0-52.0); Hemoglobin 13.4 g/dL (14.0-18.0); Immature Granulocyte Absolute 0.04 K/mm3 (0.00-0.031); Immature Granulocyte Percent A 0.4 % (0-0.5); Lymphocytes Absolute Auto 1.27 K/mm3 (0.9-3.2); Lymphocytes Percent Auto 12.9 % (18.3-44.2); Mean Corpuscular HGB Conc 31.1 g/dl (32-36); Mean Corpuscular Hemoglobin 23.3 pg (26-34); Mean Corpuscular Volume 74.8 fl (80-100); Mean Platelet Volume 10.9 fl (7.4-10.4); Monocytes Absolute Auto 0.8 K/mm3 (0.1-0.6); Monocytes Percent Auto 7.8 % (2.6-8.5); Neutrophils Absolute Auto 7.6 K/mm3 (1.3-6.7); Neutrophils Percent Auto 77.1 % (45.5-73.1); Platelet Count Result 405 k/mm3 (150-375); Red Blood Count 5.76 M/mm3 (4.6-6.20); Red Cell Distribution Width 15.8 % (11.5-14.5); White Blood Count 9.8 K/mm3 (4.5-10.0)
[2023-10-30] MEDS: FAMOTIDINE 20 MG/2 ML VIAL IV PUSH (22:41)
[2023-10-30] MEDS: ONDANSETRON INJ 4 MG/2 ML VIAL IV PUSH (22:41)
[2023-10-30 22:53] LABS: Alanine Aminotransferase 23 U/L (6-50); Albumin Level 5.2 g/dL (3.5-5.1); Alkaline Phosphatase 120 U/L (38-126); Anion Gap 13 mmol/L (4-12); Aspartate Amino Transferase 21 U/L (17-59); Bilirubin,Total 0.6 mg/dL (0.2-1.3); Blood Urea Nitrogen 14 mg/dL (9-20); Calcium 9.5 mg/dL (8.4-10.2); Carbon Dioxide 26 mmol/L (22-30); Chloride 104 mmol/L (98-107); Estimated CRCL calculation 202 ml/min; Estimated Glomerular Filt Rate > 60; Glucose 117 mg/dL (65-110); Lipase 44 U/L (23-300); Potassium 3.6 mmol/L (3.4-5.0); Sodium 143 mmol/L (137-145)
[2023-10-30 22:57] LABS: Anisocytosis 1+; Large Platelets Present; Ovalocytes 1+; Platelet Estimate Slightly Increased (Adequate); Schistocytes None Seen
--- NOTE | 2023-10-30 23:08 | PC.NURSE ---
Assumed care of patient after receiving bedside nurse report from KARLA Nugent.
[2023-10-30 23:18] LABS: Influenza A QL RT-PCR Negative (Negative); Influenza B QL RT-PCR Negative (Negative); RSV RNA, RT-PCR Negative (Negative); SARS-CoV-2 RNA PCR Negative (Negative)
[2023-10-30 23:28] VITALS: BP 141/79; PULSE 104; RESP 20; O2SAT 98
[2023-10-30 23:57] LABS: Add Urine Microscopic? YES; Appearance Urine Clear (Clear); Bacteria Urine None Seen /hpf; Bilirubin Urine Negative (Negative); Blood Urine Negative (Negative); Color Urine Yellow (Yellow); Glucose Urine UA Negative (Negative); Ketones Urine Negative (Negative); Leukocyte Esterase Ur Trace LEU/UL (Negative); Mucus Urine Present /lpf; Need Manual Microscopic Reviewed; Nitrate Urine Negative (Negative); Protein Urine 1+ mg/dL (Negative); RBC Urine 0-2 /hpf (0-2); Specific Grav Ur 1.018 (1.001-1.035); Squamous Epithelial Cell Urine Few /hpf (Few); WBC Urine 0-5 /hpf (0-3)
[2023-10-31] MEDS: SODIUM CHLORIDE 0.9% IV 1,000 ML 999 ML IV CONT (00:36)
== END 2023-10-31 01:00 | disposition home or self-care (01) ==
PROVIDERS: Emergency Provider Emergency Medicine; PCP Family Medicine
DX: R11.2 Nausea with vomiting, unspecified (principal); R19.7 Diarrhea, unspecified; Z20.822 Contact with and (suspected) exposure to COVID-19; I10 Essential (primary) hypertension; K58.0 Irritable bowel syndrome with diarrhea; E66.01 Morbid (severe) obesity due to excess calories; Z68.43 Body mass index [BMI] 50.0-59.9, adult; L40.9 Psoriasis, unspecified; L40.50 Arthropathic psoriasis, unspecified; F41.9 Anxiety disorder, unspecified; F32.A Depression, unspecified; Z79.899 Other long term (current) drug therapy
CPT/HCPCS: 36415; 71045; 80053; 81001; 83690; 85025; 87637; 93005; 96361; 96374; 96375; 99284; J2405; J7030

== ENCOUNTER 2023-11-22 14:29 | Outpatient (CLI) | payer BC, SELFPAY ==
[2023-11-22 14:45] LABS: Basophils Percent Auto 0.3 % (0.2-1.2); Eosinophils Absolute Auto 0.4 K/mm3 (0-0.3); Eosinophils Percent Auto 4.2 % (0-4.4); Hematocrit 38.5 % (42.0-52.0); Hemoglobin 11.8 g/dL (14.0-18.0); Immature Granulocyte Absolute 0.04 K/mm3 (0.00-0.031); Immature Granulocyte Percent A 0.4 % (0-0.5); Lymphocytes Percent Auto 12.4 % (18.3-44.2); Mean Corpuscular HGB Conc 30.6 g/dl (32-36); Mean Corpuscular Hemoglobin 23.5 pg (26-34); Mean Corpuscular Volume 76.5 fl (80-100); Mean Platelet Volume 10.3 fl (7.4-10.4); Monocytes Absolute Auto 0.9 K/mm3 (0.1-0.6); Monocytes Percent Auto 9.7 % (2.6-8.5); Neutrophils Absolute Auto 7.1 K/mm3 (1.3-6.7); Platelet Count Result 327 k/mm3 (150-375); Red Blood Count 5.03 M/mm3 (4.6-6.20); Red Cell Distribution Width 15.9 % (11.5-14.5); White Blood Count 9.7 K/mm3 (4.5-10.0)
[2023-11-22 14:52] LABS: Anisocytosis 1+; Hypochromasia 1+; Microcytosis 1+ (NORMAL); Platelet Estimate Adequate (Adequate); Schistocytes None Seen
[2023-11-22 16:49] LABS: Anion Gap 8 mmol/L (4-12); Blood Urea Nitrogen 14 mg/dL (9-20); Calcium 8.8 mg/dL (8.4-10.2); Carbon Dioxide 31 mmol/L (22-30); Chloride 102 mmol/L (98-107); Estimated Glomerular Filt Rate > 60; Glucose 86 mg/dL (65-110); Potassium 3.9 mmol/L (3.4-5.0); Sodium 141 mmol/L (137-145)
[2023-11-22 17:08] LABS: Iron 29 ug/dL (49-181)
[2023-11-22 17:18] LABS: Percent Iron Saturation 9 % (20-50)
== END 2023-11-22 14:30 | disposition home or self-care (01) ==
LOC: ANHLAB 14:30
PROVIDERS: Nurse Practitioner Family; PCP Family Medicine; Visit Provider Internal Medicine Hematology & Oncology
DX: D50.9 Iron deficiency anemia, unspecified (principal)
CPT/HCPCS: 36415; 80048; 82607; 82728; 83540; 83550; 85025

== ENCOUNTER 2024-03-28 12:11 | Outpatient (CLI) | payer BC, SELFPAY ==
[2024-03-28 13:03] LABS: Basophils Percent Auto 0.2 % (0.2-1.2); Eosinophils Absolute Auto 0.4 K/mm3 (0-0.3); Eosinophils Percent Auto 4.8 % (0-4.4); Hematocrit 39.5 % (42.0-52.0); Hemoglobin 12.5 g/dL (14.0-18.0); Immature Granulocyte Absolute 0.03 K/mm3 (0.00-0.031); Immature Granulocyte Percent A 0.3 % (0-0.5); Lymphocytes Absolute Auto 1.45 K/mm3 (0.9-3.2); Lymphocytes Percent Auto 16.6 % (18.3-44.2); Mean Corpuscular HGB Conc 31.6 g/dl (32-36); Mean Corpuscular Hemoglobin 25.2 pg (26-34); Mean Corpuscular Volume 79.5 fl (80-100); Mean Platelet Volume 10.1 fl (7.4-10.4); Monocytes Absolute Auto 0.9 K/mm3 (0.1-0.6); Monocytes Percent Auto 10.2 % (2.6-8.5); Neutrophils Absolute Auto 5.9 K/mm3 (1.3-6.7); Neutrophils Percent Auto 67.9 % (45.5-73.1); Platelet Count Result 304 k/mm3 (150-375); Red Blood Count 4.97 M/mm3 (4.6-6.20); Red Cell Distribution Width 14.7 % (11.5-14.5); White Blood Count 8.7 K/mm3 (4.5-10.0)
[2024-03-28 17:59] LABS: Iron 34 ug/dL (49-181)
[2024-03-28 18:10] LABS: Percent Iron Saturation 10 % (20-50)
[2024-03-28 18:31] LABS: Anion Gap 7 mmol/L (4-12); Blood Urea Nitrogen 16 mg/dL (9-20); Calcium 8.9 mg/dL (8.4-10.2); Carbon Dioxide 29 mmol/L (22-30); Chloride 103 mmol/L (98-107); Estimated Glomerular Filt Rate > 60; Glucose 84 mg/dL (65-110); Potassium 3.8 mmol/L (3.4-5.0); Sodium 139 mmol/L (137-145)
== END 2024-03-28 12:12 | disposition home or self-care (01) ==
LOC: ANHLAB 12:12
PROVIDERS: PCP Family Medicine; Visit Provider Internal Medicine Hematology & Oncology
DX: D50.9 Iron deficiency anemia, unspecified (principal)
CPT/HCPCS: 36415; 80048; 82607; 82728; 83540; 83550; 85025

== ENCOUNTER 2024-07-11 10:40 | Emergency (ER) | payer BC, SELFPAY ==
[2024-07-11 10:49] VITALS: BP 154/79; PULSE 98; RESP 16; TEMP 37.7; O2SAT 99
--- NOTE | 2024-07-11 10:56 | ED_ITS ---
HPI - Nausea/Vomiting/Diarrhea General Chief complaint: Nausea/Vomiting/Diarrhea Stated complaint: nauseous,stomach pain,hot sweats,drainage Time Seen by Provider: 07/11/24 10:43 Source: patient Mode of arrival: ambulatory Limitations: no limitations History of Present Illness HPI Narrative: Augusto is a 23 year old male patient presenting to the clinic today with c/o nausea, vomiting, diarrhea, abdomen pain, hot/cold sweats, cough, and nasal drainage x 1 week. No known fever. Temp is 37.7F in the clinic today. Denies any chest pain or SOB. Has had 5 diarrhea stools daily and states when he tries to push to have a bowel movement he vomiting. Is dry heaving in the clinic. No blood in his stools. Related Data Home Medications ?Medication ?Instructions ?Recorded ?Confirmed ?Last Taken ?Type venlafaxine 150 mg 150 mg PO DAILY 12/12/20 05/01/24 03/10/21 06:30 History capsule,extended release 24 hr risankizumab-rzaa 150 mg/mL 150 mg subcut ONCE 06/07/24 Unknown History subcutaneous pen injector (Skyrizi) Allergies Allergy/AdvReac Type Severity Reaction Status Date / Time vancomycin Allergy Intermediate SWELLING/ITCHING/ ELIO Verified 07/11/24 10:43 SYNDROME Review of Systems Review of Systems: Pertinent positives per HPI. Patient denies any fever, chills, rash, headache, visual changes, dizziness, shortness of breath, chest pain, palpitations, constipation, or any urinary issues. PMFSH Past Medical History Medical History Psoriatic arthritis Irritable bowel syndrome with diarrhea Diarrhea Morbid obesity with BMI of 45.0-49.9, adult HTN (hypertension) Nasal obstruction Nasal folliculitis Anxiety Tinea corporis Psoriasis Morbid obesity Depression Surgical History Surgical History H/O sinus surgery Family History Family History Father Alcohol abuse by father Depression Hypertension Mother Depression Diabetes mellitus Glaucoma Grandparent Depression Thyroid disorder Social History Social History Smoking status: Never smoker Second hand tobacco smoke exposure: No Alcohol intake: current Substance use: current Substance use type: marijuana Other substance usage details: pt stated used daily, stopped four months ago Last use: november 2020 Do You Feel Safe in your Home?: Yes Lack of Transportation: No Lack of Food: Never True Current Housing: I Have Housing Concerned About Future Housing: No Difficulty Paying Gas/Electric Bills: No Difficulty Paying for Meds: No Currently Unemployed: No Education: High School Diploma/GED Difficulty w/ Childcare or Family Care: No Living arrangements: with family Occupation/Education: unemployed Gender identity (if verbalized by the patient): Male Spiritual care concerns: No Agree to blood products: Yes Comments At the time of my signature, I reviewed and agree with the nursing past medical, surgical, social, and family history. There is no relevant family history pertinent to the patient complaint. Exam Narrative: General: Well-developed, morbidly obese, acutely ill-appearing Head: Normocephalic, atraumatic Eyes: Pupils equally round and reactive to light bilaterally, EOM intact, sclera and conjunctive clear, no discharge, lids normal Ears: TMs intact and clear, ear canals clear, no drainage, grossly hearing normal. Nose: Nares patent, clear nasal discharge, no inflammation, no sinus tenderness. Mouth: Oropharynx without lesions or masses, good dentition, MMM. Neck: Supple, trachea midline, no enlargement of anterior or posterior cervical nodes, no thyroid masses or goiter palpable. Cardio: Regular rate and rhythm, s1 and s2 normal, no murmur appreciated. Resp: Clear to auscultation bilaterally anteriorly and posteriorly, no rhonchi, rales, wheezing or rubs Abdomen: Soft, pliable, bowel sounds present in all quadrants, generalized tender to palpation, no organomegly, no CVAT tenderness. Course Course Emergency Course: Portions of this record may have been created with voice recognition software. Level of Care: Express Care Visit Vital Signs Vital signs: Vital Signs Temperature 37.7 C H 07/11/24 10:49 Pulse Rate 98 07/11/24 10:49 Respiratory Rate 16 07/11/24 10:49 Blood Pressure 154/79 H 07/11/24 10:49 Pulse Oximetry 99 07/11/24 10:49 Oxygen Delivery Room Air 07/11/24 10:49 Temperature 37.7 C H 07/11/24 10:49 Pulse Rate 98 07/11/24 10:49 Respiratory Rate 16 07/11/24 10:49 Blood Pressure 154/79 H 07/11/24 10:49 Pulse Oximetry 99 07/11/24 10:49 Oxygen Delivery Room Air 07/11/24 10:49 Vital signs reviewed Transfer Transfered to: [facility] [facility] Transportation: Other (Private car) Transfer rationale: Abdomen pain- N/V/D Accepting physician: Dr. Howard Transfer comments: Private car MDM - Nausea/Vomiting/Diarrhea MDM Narrative Medical decision making narrative: At the time of visit patient is resting comfortably on the exam table. Patient appears to be nontoxic. Patient has low-grade temperature, he is complaining generalized abdominal pain with nausea, vomiting, and diarrhea x1 week. Patient is dry heaving in the clinic. Medications: Promethazine 25 mg IM given in the clinic today for nausea and vomiting Plan: Offered to order x-ray to rule out constipation, obstruction, or mass. Patient initially agreed but then started to dry heave and feels worse. He declines x-ray at this time and would like to be transfer to the ER for further evaluation. Patient would like to be transferred to [facility]. Attempted to call report to [facility] and both providers were in codes at 1110. Will reattempt to call in 15 minutes. Patient updated. Attempted to call a second time at 1130 and providers are still in codes. Patient updated. Spoke with Dr. Howard at [facility] at 1145 and report was given for continuity of care. Patient to be transferred via private car. Differential Diagnosis Differential diagnosis: Likely traveler's diarrhea, food poisoning, gastroenteritis, clostridium difficile infection, drug-induced nausea and vomiting, dehydration and other (Constipation, obstruction, mass, cholecystitis, appendicitis, influenza) Discharge Plan Discharge Clinical Impression: Abdominal pain Qualifiers: Abdominal location: generalized Qualified Code(s): R10.84 - Generalized abdominal pain Diarrhea Qualifiers: Diarrhea type: unspecified type Qualified Code(s): R19.7 - Diarrhea, unspecified Nausea & vomiting Qualifiers: Vomiting type: unspecified Qualified Code(s): R11.2 - Nausea with vomiting, unspecified Patient Disposition: Acute Care Hospital Condition: Stable Patient Language: Turkmen Prescriptions: No Action losartan-hydrochlorothiazide 100-12.5 mg tablet 1 tablet PO DAILY Qty: 90 1RF Skyrizi 150 mg/mL pen injector 150 mg subcut ONCE venlafaxine 150 mg capsule,extended release 24hr 150 mg PO DAILY Patient Comments: pt stated he has not taken in two weeks, going to see MD on , 03/05. amlodipine 10 mg tablet See Rx Instructions .ROUTE .COMPLEX Qty: 90 1RF Dose Instruction: TAKE 1 TABLET BY MOUTH DAILY Rx Instructions: TAKE 1 TABLET BY MOUTH DAILY Follow-up/Referrals: Luis Tucker APRN [Primary Care Provider] - Time of Disposition: 11:53 Quality NIHSS Nursing Documentation ED NIHSS nursing documentation: reviewed/agree
[2024-07-11] MEDS: PROMETHAZINE HCL 25 MG/ML AMPUL IM (11:03)
--- NOTE | 2024-07-11 11:06 | PC.NURSE ---
PT FOUND SQUATTING IN ROOM RETCHING AND VERY DIAPHORETIC.
--- NOTE | 2024-07-11 11:32 | PC.NURSE ---
PT VOMITING AGAIN, UPDATED THAT PROVIDER IS WAITING FOR ACCEPTING PHYSICIAN TO TAKE REPORT AT [facility].
== END 2024-07-11 11:51 | disposition short-term general hospital (02) ==
PROVIDERS: Emergency Provider Nurse Practitioner Family; PCP Nurse Practitioner
DX: R10.84 Generalized abdominal pain (principal); R19.7 Diarrhea, unspecified; R11.2 Nausea with vomiting, unspecified; I10 Essential (primary) hypertension; E66.01 Morbid (severe) obesity due to excess calories; Z68.43 Body mass index [BMI] 50.0-59.9, adult; L40.50 Arthropathic psoriasis, unspecified; F41.9 Anxiety disorder, unspecified; F32.A Depression, unspecified
CPT/HCPCS: 96372; 99213; G0463; J2550

== ENCOUNTER 2024-07-11 12:21 | Emergency (ER) | payer BC, SELFPAY ==
[2024-07-11 12:30] VITALS: BP 137/116; PULSE 96; RESP 18; TEMP 36.5; O2SAT 100
--- NOTE | 2024-07-11 13:25 | ED_ITS ---
HPI - Nausea/Vomiting/Diarrhea General Chief complaint: Nausea/Vomiting/Diarrhea Stated complaint: n/v/d, abd pain x 7 days Time Seen by Provider: 07/11/24 13:25 Focused HPI: This is a 23 year old male that presents to the ER for vomiting, diarrhea. Ongoing over the last week. Reports abdominal pain today, feels like its in a knot. Reports he has not been able to keep anything down. Was seen at urgent care and sent to the ER for further evaluation. Was given zofran and phenergan. GENERAL: Well-appearing, well-nourished, and in no acute distress. HEAD: Normocephalic, atraumatic. CHEST: Clear to auscultation. ?No respiratory distress. HEART: Regular rate and rhythm.? NEURO: ?Alert and oriented x3. Patient screened in triage and initial orders placed.? ?Additional care and disposition to be based upon?diagnostic testing and treatment. Related Data Home Medications ?Medication ?Instructions ?Recorded ?Confirmed ?Last Taken ?Type venlafaxine 150 mg 150 mg PO DAILY 12/12/20 05/01/24 03/10/21 06:30 History capsule,extended release 24 hr risankizumab-rzaa 150 mg/mL 150 mg subcut ONCE 06/07/24 Unknown History subcutaneous pen injector (Skyrizi) Allergies Allergy/AdvReac Type Severity Reaction Status Date / Time vancomycin Allergy Intermediate SWELLING/ITCHING/ ELIO Verified 07/11/24 10:43 SYNDROME PMFSH Past Medical History Medical History Psoriatic arthritis Irritable bowel syndrome with diarrhea Diarrhea Morbid obesity with BMI of 45.0-49.9, adult HTN (hypertension) Nasal obstruction Nasal folliculitis Anxiety Tinea corporis Psoriasis Morbid obesity Depression Surgical History Surgical History H/O sinus surgery Family History Family History Father Alcohol abuse by father Depression Hypertension Mother Depression Diabetes mellitus Glaucoma Grandparent Depression Thyroid disorder Social History Social History Smoking status: Never smoker Second hand tobacco smoke exposure: No Alcohol intake: current Substance use: current Substance use type: marijuana Other substance usage details: pt stated used daily, stopped four months ago Last use: november 2020 Do You Feel Safe in your Home?: Yes Lack of Transportation: No Lack of Food: Never True Current Housing: I Have Housing Concerned About Future Housing: No Difficulty Paying Gas/Electric Bills: No Difficulty Paying for Meds: No Currently Unemployed: No Education: High School Diploma/GED Difficulty w/ Childcare or Family Care: No Living arrangements: with family Occupation/Education: unemployed Gender identity (if verbalized by the patient): Male Spiritual care concerns: No Agree to blood products: Yes Course Vital Signs Vital signs: Vital Signs Temperature 97.7 F 07/11/24 12:30 Pulse Rate 96 07/11/24 12:30 Respiratory Rate 18 07/11/24 12:30 Blood Pressure 137/116 H 07/11/24 12:30 Pulse Oximetry 100 07/11/24 12:30 Temperature 97.7 F 07/11/24 12:30 Pulse Rate 96 07/11/24 12:30 Respiratory Rate 18 07/11/24 12:30 Blood Pressure 137/116 H 07/11/24 12:30 Pulse Oximetry 100 07/11/24 12:30 MDM - Nausea/Vomiting/Diarrhea MDM Narrative Medical decision making narrative: Patient left after medical screening exam and initial workup and before any further evaluation or management Discharge Plan Discharge Clinical Impression: Gastroenteritis Patient Disposition: Elopement After Seen by Prov Condition: Guarded Prognosis Patient Language: Kyrgyz Prescriptions: No Action losartan-hydrochlorothiazide 100-12.5 mg tablet 1 tablet PO DAILY Qty: 90 1RF Skyrizi 150 mg/mL pen injector 150 mg subcut ONCE venlafaxine 150 mg capsule,extended release 24hr 150 mg PO DAILY Patient Comments: pt stated he has not taken in two weeks, going to see MD on , 03/05. amlodipine 10 mg tablet See Rx Instructions .ROUTE .COMPLEX Qty: 90 1RF Dose Instruction: TAKE 1 TABLET BY MOUTH DAILY Rx Instructions: TAKE 1 TABLET BY MOUTH DAILY Follow-up/Referrals: Luis Tucker, MARY [Primary Care Provider] -
--- OUTSIDE RECORDS SUMMARY | 2024-07-11 13:54 | XMS_ITS | Encounter Summary ---
Author Organization [facility] Address [address] [place] [address] Care Team Providers Care Feed Crusher Name Role Phone Vijay Nolasco DO Primary Care Provider [phone] Encounter Details Date Type Department Care Team (Late st Contact Info) Description 07/10/2024 External Device Data STL ABSTRACTION Provider, Abstract NO ADDRESS ON FILE Social History Tobacco Use Types Packs/Day Years Used Date Smoking Tobacco: Never Smokeless Tobacco: Never Alcohol Use Standard Drinks/Week Comments Not Currently 0 (1 standard drink = 0.6 oz pur e alcohol) socially Sex and Gender Information Value Date Recorded Sex Assigned at Not on file Legal Sex Male 1:49 PM CDT Gender Identity Not on file Sexual Orientation Not on file documented as of this encounter Plan of Treatment Upcoming Encounters Date Type Department Care Team (Late st Contact Info) Description 11/01/2024 2:15 PM CDT Office Visit [facility] Oncology and Hematology - [place] [address] [facility] [address] [place] [address] Jai Dietrich MD [address] [facility] [address] [place] [address] documented as of this encounter Visit Diagnoses Not on filedocumented in this encounter Care Teams Feed Crusher Relationship Specialty Start Date End Date Vijay Nolasco DO [address] [facility] [address] [facility] [address] [place] [address] PCP - General Internal Medicine 03/29/24 documented as of this encounter
--- OUTSIDE RECORDS SUMMARY | 2024-07-11 13:54 | XMS_ITS | Encounter Summary ---
Author Organization [facility] Address [address] [place] [address] Phone Care Team Providers Care Roll Forming Machine Set Up Mechanic Name Role Phone Vijay Nolasco Primary Care Provider [phone] Encounter Details Date Type Department Care Team (Late st Contact Info) Description 10/27/2021 Behavioral Health Patient Survey [facility] Behavioral Health Services [address] [place] [address] Mychart, Generic Provider [address] [place] [address] Social History Tobacco Use Types Packs/Day Years Used Date Smoking Tobacco: Never Smokeless Tobacco: Never Alcohol Use Standard Drinks/Week Comments Never 0 (1 standard drink = 0.6 oz pur e alcohol) AUDIT-C Answer Date Recorded Q1: How often do you have a drink containing alc ohol? Never 06/06/2020 Average Number of Drinks Not on file 021 Frequency of Binge Drinking Not on file 05/17 PHQ-2 Answer Date Recorded Total Score - Questions 1-9 0 02/14 Sexually Active Control Partners Comments Not Currently Sex and Gender Information Value Date Recorded Sex Assigned at Not on file Legal Sex Male 9:59 PM CDT Gender Identity Not on file Sexual Orientation Not on file COVID-19 Exposure Response Date Recorded In the last 10 days, have yo u been in contact with someone who was confirmed or suspected to have Coronavirus/COVID-19? No / Unsure 10/26/2021 4:42 PM CDT documented as of this encounter Plan of Treatment Not on file documented as of this encounter Goals Goal Patient Goal Type Associated Problems Recent Progress Patient-Stated? Author Behavioral Health Behavioral Health On track(2021 3:45 PM CDT) Yes Kimberly Scott LCSW Note: I want to make sure I don't have a relapse with depression/suicidal thoughts, keep working on relationship skills within the next six months. Goal Reviewed Today with: patient Readiness to change: Ready to change Department associated with goal: [facility] Steps to achieve goal: Patient to be counseled on coping with depression for duration of the 45 minute, 1-2 times monthly sessions Patient to be counseled on coping with relationship stressors for duration of the 45 minute, 1-2 times monthly sessions Behavioral Health Behavioral Health On track(2021 3:45 PM CDT) No Kimberly Scott LCSW Note: Goal: Patient will be able to report improved mood and motivational level to an acceptable level within the next six months Goal Reviewed Today with: patient Readiness to change: Ready to change Department associated with goal: [facility] Steps to achieve goal: Patient counseled on healthy coping skills for depression for the duration of 45 min sessions, 1-2 times monthly Patient counseled on setting healthy boundaries for duration of the 45 min sessions, 1-2 times monthly Patient counseled on aspects of healthy self-care for duration of the 45 min sessions, 1-2 times monthly documented as of this encounter Visit Diagnoses Not on filedocumented in this encounter Additional Health Concerns Assessment Noted Time PHQ-9 Depression Total Score: 0 03/06/20 21 3:00 PM CDT documented as of this encounter Care Teams Roll Forming Machine Set Up Mechanic Relationship Specialty Start Date End Date Vijay Nolasco DO [address] [address] PCP - General Internal Medicine 07/15/20 documented as of this encounter
--- OUTSIDE RECORDS SUMMARY | 2024-07-11 13:54 | XMS_ITS | Clinical Summary ---
Author Organization [facility] Address [address] [address] [place] [address] Phone Care Team Providers Care Line Person Name Role Phone Vijay Nolasco DO Primary Care Provider [phone] Allergies Active Allergy Reactions Criticality Noted Date Comments Vancomycin Hives High 05/02/2023 Medications sertraline (ZOLOFT) 100 mg tablet Take 50 mg by mouth daily. Dose changed Active venlafaxine 150 mg Extended Release 24 hour tablet Take 150 mg by mouth daily with breakfast. Active losartan-hydroC HLOROthiazide (HYZAAR) 50-12.5 mg tablet Take 1 Tablet by mouth daily. Active amLODIPine (NORVASC) 10 mg tablet Take 10 mg by mouth daily. Active ferrous sulfate 325 mg (65 mg iron) tablet Take 325 mg by mouth 2 times daily. Active cyanocobalamin 1,000 mcg Tablet Take 1,000 mcg by mouth daily. Active Skyrizi 150 mg/mL Pen Injector Inject 150 mg by subcutaneous injection. Active Active Problems No known active problems Encounters Date Type Department Care Team Description 07/10/2024 External Device Data STL ABSTRACTION Provider, Abstract 07/04/2024 2:45 PM GORE CUTTER Telephone Check Up [facility] Oncology and Hematology - [address] [place] [address] Jai Dietrich MD Iron deficiency anemia, unspecified iron deficiency anemia type (Primary Dx); Anemia due to vitamin B12 deficiency, unspecified B12 deficiency type 07/04/2024 External Device Data STL ABSTRACTION Provider, Abstract 07/03/2024 Orders Only [facility] Oncology and Hematology - [place] [address] [place] [address] Jai Diterich MD 07/03/2024 Abstract [facility] Oncology and Hematology [facility] [address] [place] [address] Jai Dietrich MD 06/06/2024 External Device Data STL ABSTRACTION Provider, Abstract 06/05/2024 External Device Data STL ABSTRACTION Provider, Abstract from Last 3 Months Family History Medical History Relation Name Comments No Known Problems Brother No Known Problems Father Cancer Maternal Grandfather Depression Mother Diabetes Mother Heart Attack Paternal Grandfather No Known Problems Sister Relation Name Status Comments Brother Father Maternal Grandfather Mother Alive Paternal Grandfather Sister Social History Tobacco Use Types Packs/Day Years Used Date Smoking Tobacco: Never Smokeless Tobacco: Never Tobacco Cessation:Counseling Given: Not Answered Alcohol Use Standard Drinks/Week Comments Not Currently 0 (1 standard drink = 0.6 oz pur e alcohol) socially Sex and Gender Information Value Date Recorded Sex Assigned at Not on file Legal Sex Male 1:49 PM CDT Gender Identity Not on file Sexual Orientation Not on file Last Filed Vital Signs Vital Sign Reading Time Taken Comments Blood Pressure 127/66 03/29/2024 1:56 PM GORE CUTTER Pulse 78 03/29/2024 1:56 PM GORE CUTTER Temperature 36.8 C (98.2 F) 03/29/2024 1:56 PM GORE CUTTER Respiratory Rate 16 03/29/2024 1:56 PM GORE CUTTER Oxygen Saturation 96% 03/29/2024 1:56 PM GORE CUTTER Inhaled Oxygen Concentration - - Weight 154.2 kg (340 lb) 03/29/2024 1:56 PM GORE CUTTER Height 172.7 cm (5' 8 ) 05/02/2023 9:51 AM GORE CUTTER Body Mass Index 51.7 05/02/2023 9:51 AM GORE CUTTER Plan of Treatment Upcoming Encounters Date Type Department Care Team (Late st Contact Info) Description 11/01/2024 2:15 PM CDT Office Visit [facility] Oncology and Hematology [address] [place] [address] Jai Dietrich MD [address] [facility] [address] [place] [address] Health Maintenance Due Date Last Done Comments HPV VACCINES (1 - Male 3-dose series) 08/08/2015 DTAP/TDAP/TD VACCINES (1 - Tdap) 08/08/2019 HEPATITIS B VACCINES (1 of 3 - 19+ 3-dose series) 07/15 INFLUENZA VACCINE (#1) 2023 Preventative Visit- Commercial 05/16/2024 Procedures Procedure Name Priority Date/Time Associated Diagnosis Comments CBC WITH DIFFERENTIAL Routine 06/25/2024 12:50 PM GORE CUTTER from Last 3 Months Results * CBC WITH DIFFERENTIAL (06/25/2024 12:50 PM GORE CUTTER) Blood us Jai Dietrich MD HEMATOLOGY ORDERABLES Final Res ult from Last [address] [place] [address] [place] [address] BLUE PREFERRED Care Teams Line Person Relationship Specialty Start Date End Date Vijay Nolasco DO [address] [facility] [address] [place] [address] PCP - General Internal Medicine 03/29/24
--- OUTSIDE RECORDS SUMMARY | 2024-07-11 13:54 | XMS_ITS | Encounter Summary ---
Author Organization [facility] Address [address] [place] [address] Phone Care Team Providers Care Cupola Liner Helper Name Role Phone Vijay Nolasco Primary Care Provider [phone] Encounter Details Date Type Department Care Team (Late st Contact Info) Description 12/22/2021 [facility]al [facility] 1 [place] [address] Mychart, Generic Provider [address] [place] [address] Social History Tobacco Use Types Packs/Day Years [...] suspected to have Coronavirus/COVID-19? No / Unsure 12/21/2021 4:13 PM CDT documented as of this encounter [...] Ready to change Department associated with goal: [facility] Steps to achieve [...] Ready to change Department associated with goal: [facility] Steps to achieve [...] documented as of this encounter Care Teams Cupola Liner Helper Relationship Specialty Start Date End Date Vijay Nolasco DO [address] [address] PCP - General Internal Medicine 07/15/20 documented as of this encounter
--- OUTSIDE RECORDS SUMMARY | 2024-07-11 13:54 | XMS_ITS | Encounter Summary ---
Author Organization [facility] Address [address] [place] [address] Phone Care Team Providers Care Industrial Insulator Name Role Phone Vijay Nolasco Primary Care Provider [phone] Encounter Details Date Type Department Care Team (Late st Contact Info) Description 01/26/2022 Behavior[facility] [address] [place] [address] Mychart, Generic Provider [address] [place] [address] Social History Tobacco Use Types Packs/Day Years [...] suspected to have Coronavirus/COVID-19? No / Unsure 01/26/2022 3:10 PM CDT documented as of this encounter [...] Ready to change Department associated with goal: [facility] Steps to achieve [...] Ready to change Department associated with goal: [facility] Steps to achieve [...] documented as of this encounter Care Teams Industrial Insulator Relationship Specialty Start Date End Date Vijay Nolasco DO [address] [address] PCP - General Internal Medicine 07/15/20 documented as of this encounter
--- OUTSIDE RECORDS SUMMARY | 2024-07-11 13:54 | XMS_ITS | Clinical Summary ---
Author Organization [facility] Address [address] [place] [address] Phone Care Team Providers Care Fuel Distribution System Operator Name Role Phone Vijay Nolasco Primary Care Provider [phone] Medications SERTRALINE HCL PO Take by mouth. Active VENLAFAXINE HCL PO Take 150 mg by mouth. Active Active Problems Problem Noted Date Diagnosed Date Major depressive disorder, r ecurrent episode, moderate with anxious distress 06/06/2020 Family History Medical History Relation Name Comments Depression Maternal Grandmother Depression Mother Depression Paternal Grandmother Relation Name Status Comments Maternal Grandmother Mother Paternal Grandmother Social History Tobacco Use Types Packs/Day Years [...] on file Sexual Orientation Not on file Plan of Treatment Health Maintenance Due Date Last Done Comments Hepatitis C Virus (HCV) Screening 2000 Human Papillomavirus (HPV) Immunization (1 - Male 3-dose series) 08/08/2015 Meningococcal B Immunization (1 of 2 - Standard) 2016 Influenza Immunization (#1) 2024 SARS-COV-2 Immunization (3 - season) 2024 11/25/2020, 11/04/2020 Respiratory Syncytial Virus (RSV) Immunization (Adult) (1 - 1-dose 75+ series) 08/08/2075 Hepatitis B Immunization Completed 001, 2000, 2000 Pneumococcal Immunization Combined Aged Out 11/07/2001, 02/14/2001, 2000, Additional history exists No longer eligible based on patient's age to complete this topic DTaP/Tdap/Td Immunization Discontinued 2011, 09/01/2005, 11/07/2001, Additional history exists Meningococcal Immunization (ACWY) Aged Out 11/29/2011 No longer eligible based on patient's age to complete this topic TdaP Immunization Completed 11/29/2011 Rotavirus Immunization Aged Out No lo nger eligible based on patient's age to complete this topic Goals Goal Patient Goal Type Associated Problems Recent Progress Patient-Stated? Author Behavioral Health Behavioral Health On track(2021 3:45 PM CDT) Yes Kimberly Scott LCSW Note: I want to make sure I don't have a relapse with depression/suicidal thoughts, keep working on relationship skills within the next six months. Goal Reviewed Today with: patient Readiness to change: Ready to change Department associated with goal: [facility] Steps to achieve goal: [...] Ready to change Department associated with goal: [facility] Steps to achieve goal: Patient counseled on healthy coping skills for depression for the duration of 45 min sessions, 1-2 times monthly Patient counseled on setting healthy boundaries for duration of the 45 min sessions, 1-2 times monthly Patient counseled on aspects of healthy self-care for duration of the 45 min sessions, 1-2 times monthly Insurance [facility] Care Teams Fuel Distribution System Operator Relationship Specialty Start Date End Date Vijay Nolasco DO [address] [facility] [address] [place] [address] PCP - General Internal Medicine 07/15/20
--- OUTSIDE RECORDS SUMMARY | 2024-07-11 16:40 | XMS_ITS | Encounter Summary ---
Author Organization [facility] Address [address] [place] [address] Phone Care Team Providers Care Budget Accountant Name Role Phone Vijay Nolasco Primary Care Provider [phone] Encounter Details Date Type Department Care Team (Late st Contact Info) Description 01/26/2022 [facility] [address] [place] [address] Mychart, Generic Provider [address] [place] [address] Social History Tobacco Use Types Packs/Day Years [...] Ready to change Department associated with goal: [facility] Steps to achieve [...] Ready to change Department associated with goal: [facility] Steps to achieve [...] documented as of this encounter Care Teams Budget Accountant Relationship Specialty Start Date End Date Vijay Nolasco DO [address] [address] PCP - General Internal Medicine 07/15/20 documented as of this encounter
--- OUTSIDE RECORDS SUMMARY | 2024-07-11 16:40 | XMS_ITS | Clinical Summary ---
Author Organization [facility] Address [address] [address] [place] [address] Phone Care Team Providers Care Assisted Sales Representative Name Role Phone Vijay Nolasco DO Primary Care Provider [phone] Allergies Active Allergy Reactions Criticality Noted Date [...] STL ABSTRACTION Provider, Abstract 07/04/2024 2:45 PM MEDICAL LABORATORY TECHNICAL OFFICER Telephone Check Up [facility] Oncology and Hematology - [place] [address] [place] [address] Jai Dietrich MD Iron deficiency anemia, unspecified iron deficiency anemia type (Primary Dx); Anemia due to vitamin B12 deficiency, unspecified B12 deficiency type 07/04/2024 External Device Data STL ABSTRACTION Provider, Abstract 07/03/2024 Orders Only [facility] Oncology and Hematology - [place] [address] [place] [address] Jai Dietrich MD 07/03/2024 Abstract [facility] Oncology and Hematology [facility] [address] [place] [address] Jai Dietrich MD 06/06/2024 External [...] Comments Blood Pressure 127/66 03/29/2024 1:56 PM MEDICAL LABORATORY TECHNICAL OFFICER Pulse 78 03/29/2024 1:56 PM MEDICAL LABORATORY TECHNICAL OFFICER Temperature 36.8 C (98.2 F) 03/29/2024 1:56 PM MEDICAL LABORATORY TECHNICAL OFFICER Respiratory Rate 16 03/29/2024 1:56 PM MEDICAL LABORATORY TECHNICAL OFFICER Oxygen Saturation 96% 03/29/2024 1:56 PM MEDICAL LABORATORY TECHNICAL OFFICER Inhaled Oxygen Concentration - - Weight 154.2 kg (340 lb) 03/29/2024 1:56 PM MEDICAL LABORATORY TECHNICAL OFFICER Height 172.7 cm (5' 8 ) 05/02/2023 9:51 AM MEDICAL LABORATORY TECHNICAL OFFICER Body Mass Index 51.7 05/02/2023 9:51 AM MEDICAL LABORATORY TECHNICAL OFFICER Plan of Treatment Upcoming Encounters Date Type Department Care Team (Late st Contact Info) Description 11/01/2024 2:15 PM CDT Office Visit [facility] Oncology and Hematology [place] [address] [place] [address] Jai Dietrich MD [address] [facility] [address] [place] [address] Health Maintenance Due Date Last Done Comments HPV VACCINES (1 - Male 3-dose series) 08/08/2015 DTAP/TDAP/TD VACCINES (1 - Tdap) 08/08/2019 HEPATITIS B VACCINES (1 of 3 - 19+ 3-dose series) 07/15 INFLUENZA VACCINE (#1) 2023 Preventative Visit- Commercial 05/16/2024 Procedures Procedure Name Priority Date/Time Associated Diagnosis Comments CBC WITH DIFFERENTIAL Routine 06/25/2024 12:50 PM MEDICAL LABORATORY TECHNICAL OFFICER from Last 3 Months Results * CBC WITH DIFFERENTIAL (06/25/2024 12:50 PM MEDICAL LABORATORY TECHNICAL OFFICER) Blood us Jai Dietrich MD HEMATOLOGY ORDERABLES Final Res ult from Last [address] [place] [address] [place] [address] BLUE PREFERRED Care Teams Assisted Sales Representative Relationship Specialty Start Date End Date Vijay Nolasco DO [address] [facility] [address] [place] [address] PCP - General Internal Medicine 03/29/24
--- OUTSIDE RECORDS SUMMARY | 2024-07-11 16:40 | XMS_ITS | Clinical Summary ---
Author Organization [facility] Address [address] [place] [address] Phone Care Team Providers Care Heel Former Name Role Phone Vijay Nolasco Primary Care Provider [phone] Medications SERTRALINE HCL PO Take by mouth. [...] Ready to change Department associated with goal: [facility] Steps to achieve [...] Ready to change Department associated with goal: [facility] Steps to achieve goal: Patient counseled on healthy coping skills for depression for the duration of 45 min sessions, 1-2 times monthly Patient counseled on setting healthy boundaries for duration of the 45 min sessions, 1-2 times monthly Patient counseled on aspects of healthy self-care for duration of the 45 min sessions, 1-2 times monthly Insurance [facility] Care Teams Heel Former Relationship Specialty Start Date End Date Vijay Nolasco DO [address] [facility] [address] [place] [address] PCP - General Internal Medicine 07/15/20
--- OUTSIDE RECORDS SUMMARY | 2024-07-11 16:40 | XMS_ITS | Encounter Summary ---
Author Organization [facility] Address [address] [place] [address] Care Team Providers Care Practice Clinician Name Role Phone Vijay Nolasco DO Primary Care Provider [phone] Encounter Details Date Type Department Care Team [...] Description 11/01/2024 2:15 PM CDT Office Visit [facility] Oncology and Hematology - [place] [address] [facility] [address] [place] [address] Jai Dietrich MD [address] [facility] [address] [place] [address] documented as of this encounter Visit Diagnoses Not on filedocumented in this encounter Care Teams Practice Clinician Relationship Specialty Start Date End Date Vijay Nolasco DO [address] [facility] [address] [facility] [address] [place] [address] PCP - General Internal Medicine 03/29/24 documented as of this encounter
--- OUTSIDE RECORDS SUMMARY | 2024-07-11 16:40 | XMS_ITS | Encounter Summary ---
Author Organization [facility] Address [address] [place] [address] Phone Care Team Providers Care Recruitment Manager Name Role Phone Vijay Nolasco Primary Care Provider [phone] Encounter Details Date Type Department Care Team (Late st Contact Info) Description 10/27/2021 Behavioral Health Patient Survey [facility] Services [address] [place] [address] Mychart, Generic Provider [address] [place] [address] Social History Tobacco Use Types Packs/Day Years [...] Ready to change Department associated with goal: [facility] Steps to [...] Ready to change Department associated with goal: [facility] Steps to [...] documented as of this encounter Care Teams Recruitment Manager Relationship Specialty Start Date End Date Vijay Nolasco DO [address] [address] PCP - General Internal Medicine 07/15/20 documented as of this encounter
--- OUTSIDE RECORDS SUMMARY | 2024-07-11 16:40 | XMS_ITS | Encounter Summary ---
Author Organization [facility] Address [address] [place] [address] Phone Care Team Providers Care Soubrette Name Role Phone Vijay Nolasco Primary Care Provider [phone] Encounter Details Date Type Department Care Team (Late st Contact Info) Description 12/22/2021 Behavior[facility] [address] [place] [address] Mychart, Generic Provider [address] [place] [address] Social History Tobacco Use Types Packs/Day Years [...] Ready to change Department associated with goal: [facility] Steps to achieve goal: [...] Ready to change Department associated with goal: [facility] Steps to achieve goal: [...] documented as of this encounter Care Teams Soubrette Relationship Specialty Start Date End Date Vijay Nolasco DO [address] [address] PCP - General Internal Medicine 07/15/20 documented as of this encounter
== END 2024-07-11 14:52 | disposition left against medical advice (07) ==
PROVIDERS: Emergency Provider Physician Assistant; PCP Nurse Practitioner
DX: K52.9 Noninfective gastroenteritis and colitis, unspecified (principal); I10 Essential (primary) hypertension; E66.01 Morbid (severe) obesity due to excess calories; Z68.43 Body mass index [BMI] 50.0-59.9, adult; L40.9 Psoriasis, unspecified; K58.0 Irritable bowel syndrome with diarrhea; F41.9 Anxiety disorder, unspecified; F32.A Depression, unspecified; Z79.899 Other long term (current) drug therapy; Z79.620 Long term (current) use of immunosuppressive biologic
CPT/HCPCS: 99283

== ENCOUNTER 2024-07-23 17:35 | Observation (INO) | payer BC, SELFPAY ==
--- NOTE | ~2024-07-23 | XR_ITS ---
EXAM: XR elbow RT min 3V DATE: 07/23/2024 20:00 HISTORY: pain . COMPARISON: None available. FINDINGS: Normal mineralization. No fracture or dislocation. No lytic or blastic lesion. Joint space s are maintained. No erosion or periosteal change. Soft tissues within normal limits. IMPRESSION: No acute osseous finding in the right elbow. Reviewed, dictated and finalized at location K.
--- NOTE | ~2024-07-23 | CT_ITS ---
EXAMINATION: CT abdomen pelvis w con DATE: 07/23/2024 20:59 INDICATION: r sided pain, n/v TECHNIQUE: Computed tomography (CT) of the abdomen and pelvis was performed with 100 mL Omnipaque-350 intravenous contrast. Automated exposure control and iterative reconstruction technique were employe d. The dose-length product was 1723.47 mGy-cm. COMPARISON: 06/22/2021. FINDINGS: Lower thorax: Unremarkable Liver: Diffusely low-density parenchyma. Enlarged Biliary/Gallbladder: Mildly distended, without inflammatory change or stones No bile duct dilation. Pancreas: Fatty atrophy. Spleen: Normal. Adrenals:No mass. Kidneys: No suspicious mass, obstructing stone, or hydronephrosis. GI tract: No small or large bowel dilation. The distal appendix is mildly dilated to 8 mm, with hyper emia of the wall. No surrounding inflammatory change. Minimal scattered diverticulosis without divert iculitis. Mesentery/Peritoneum: No ascites, mass, or free air. Retroperitoneum: No mass. Pelvis: Partially distended urinary bladder with wall thickening. Normal prostate. Soft Tissues: Soft tissues and body wall unremarkable. Bones: No acute osseous finding. Chronic bilateral L5 pars defects and grade 1 L5-S1 anterolisthesis IMPRESSION: Mild hepatomegaly and steatosis. Gallbladder hydrops, probably due to fasting. No inflammatory changes, obstructing stone or biliary d ilatation. Findings suspicious for early appendicitis. Cystitis versus urinary bladder wall thickening from inadequate distention. Reviewed, dictated and finalized at location K. IMPRESSION: Mild hepatomegaly and steatosis. Gallbladder hydrops, probably due to fasting. No inflammatory changes, obstruct ing stone or biliary dilatation. Findings suspicious for early appendicitis. Cystitis versus urinary bladder wall thickening from inadequate distention.
--- NOTE | ~2024-07-23 | XR_ITS ---
CHEST RADIOGRAPH, PA AND LATERAL CLINICAL HISTORY: cp FOR 1 DAY . COMPARISON: 06/05/2021 TECHNIQUE: PA and lateral views of the chest. FINDINGS The cardiomediastinal silhouette is enlarged, specifically within the left atrium. The lungs are clear. Visualized osseous structures and soft tissues are unremarkable. IMPRESSION: No focal infiltrate or effusion. Reviewed, dictated and finalized at location A.
[2024-07-23 17:37] VITALS: BP 144/96; PULSE 83; RESP 20; TEMP 36.7; O2SAT 99
--- NOTE | 2024-07-23 17:42 | ECG_ITS ---
Test Date: 2024-07-23 17:44:56 Measurements Intervals [place] Rate: 75 P: 66 [place]: 171 QRS: 98 QRSD: 108 T: 48 QT: 365 QTc: 408 Interpretive Statements SINUS RHYTHM BORDERLINE RIGHT AXIS DEVIATION [QRS AXIS > 90] LOW QRS VOLTAGE IN PRECORDIAL LEADS [QRS DEFLECTION < 1.0 mV IN CHEST LEADS] POSSIBLE ANTERIOR MYOCARDIAL INFARCTION , PROBABLY OLD [30 ms Q WAVE IN V3/V4, OR R < 0.2 mV IN V4] Compared to ECG 10/30/2023 22:55:27 Myocardial infarct finding now present Electronically Signed On 07-24-2024 14:34:49 CDT by Lauro Camarena M.D.
[2024-07-23 17:56] LABS: Basophils Percent Auto 0.3 % (0.2-1.2); Eosinophils Absolute Auto 0.3 K/mm3 (0-0.3); Eosinophils Percent Auto 3.4 % (0-4.4); Hematocrit 44.3 % (42.0-52.0); Hemoglobin 14.3 g/dL (14.0-18.0); Immature Granulocyte Absolute 0.03 K/mm3 (0.00-0.031); Immature Granulocyte Percent A 0.4 % (0-0.5); Lymphocytes Absolute Auto 0.84 K/mm3 (0.9-3.2); Lymphocytes Percent Auto 11.4 % (18.3-44.2); Mean Corpuscular HGB Conc 32.3 g/dl (32-36); Mean Corpuscular Hemoglobin 26.6 pg (26-34); Mean Corpuscular Volume 82.5 fl (80-100); Mean Platelet Volume 10.9 fl (7.4-10.4); Monocytes Absolute Auto 0.8 K/mm3 (0.1-0.6); Monocytes Percent Auto 10.1 % (2.6-8.5); Neutrophils Absolute Auto 5.5 K/mm3 (1.3-6.7); Neutrophils Percent Auto 74.4 % (45.5-73.1); Platelet Count Result 303 k/mm3 (150-375); Red Blood Count 5.37 M/mm3 (4.6-6.20); Red Cell Distribution Width 14.3 % (11.5-14.5); White Blood Count 7.4 K/mm3 (4.5-10.0)
[2024-07-23 18:09] LABS: Alanine Aminotransferase 36 U/L (6-50); Albumin Level 4.6 g/dL (3.5-5.1); Alkaline Phosphatase 112 U/L (38-126); Anion Gap 11 mmol/L (4-12); Aspartate Amino Transferase 21 U/L (17-59); Bilirubin,Total 0.6 mg/dL (0.2-1.3); Blood Urea Nitrogen 9 mg/dL (9-20); Calcium 9.3 mg/dL (8.4-10.2); Carbon Dioxide 25 mmol/L (22-30); Chloride 105 mmol/L (98-107); Estimated CRCL calculation 196 ml/min; Estimated Glomerular Filt Rate > 60; Glucose 127 mg/dL (65-110); Lipase 27 U/L (23-300); Potassium 3.9 mmol/L (3.4-5.0); Sodium 141 mmol/L (137-145)
[2024-07-23 18:16] LABS: Partial Thromboplastin Time 30.3 Seconds (22.3-36.8); Prothrombin Time 13.8 Seconds (11.1-14.7)
[2024-07-23 18:20] LABS: Troponin I < 0.012 ng/mL (0.000-0.034)
--- OUTSIDE RECORDS SUMMARY | 2024-07-23 19:15 | XMS_ITS | Encounter Summary ---
Author Organization [facility] Address [address] [place] [address] Phone Care Team Providers Care Chemist Instrumentation Name Role Phone Vijay Nolasco Primary Care Provider [phone] Encounter Details Date Type Department Care Team (Late st Contact Info) Description 12/22/2021 Behavioral [facility] [address] [place] [address] Mychart, Generic Provider [address] [place] [address] Social History Tobacco Use Types Packs/Day Years [...] documented as of this encounter Care Teams Chemist Instrumentation Relationship Specialty Start Date End Date Vijay Nolasco DO [address] [address] PCP - General Internal Medicine 07/15/20 documented as of this encounter
--- OUTSIDE RECORDS SUMMARY | 2024-07-23 19:15 | XMS_ITS | Clinical Summary ---
Author Organization [facility] Address [address] [place] [address] Phone Care Team Providers Care Clinic Coordinator Name Role Phone Vijay Nolasco Primary Care Provider [phone] Medications SERTRALINE HCL PO Take by mouth. [...] Ready to change Department associated with goal: [facility] Steps to achieve [...] Ready to change Department associated with goal: [facility] Steps to achieve goal: Patient counseled on healthy coping skills for depression for the duration of 45 min sessions, 1-2 times monthly Patient counseled on setting healthy boundaries for duration of the 45 min sessions, 1-2 times monthly Patient counseled on aspects of healthy self-care for duration of the 45 min sessions, 1-2 times monthly Insurance [facility] Care Teams Clinic Coordinator Relationship Specialty Start Date End Date Vijay Nolasco DO [address] [facility] [address] [place] [address] PCP - General Internal Medicine 07/15/20
--- OUTSIDE RECORDS SUMMARY | 2024-07-23 19:15 | XMS_ITS | Encounter Summary ---
Author Organization [facility] Address [address] [place] [address] Phone Care Team Providers Care Storage Consultant Name Role Phone Vijay Nolasco Primary Care Provider [phone] Encounter Details Date Type Department Care Team (Late st Contact Info) Description 10/27/2021 Behavioral Health Patient Survey [facility] Behavior[facility] Health Services 1 [place] [address] Mychart, Generic Provider [address] [place] [address] Social History Tobacco Use Types Packs/Day Years [...] Ready to change Department associated with goal: [facility] Steps to achieve goal: [...] Ready to change Department associated with goal: [facility] Steps to achieve goal: [...] documented as of this encounter Care Teams Storage Consultant Relationship Specialty Start Date End Date Vijay Nolasco DO [address] [address] PCP - General Internal Medicine 07/15/20 documented as of this encounter
--- OUTSIDE RECORDS SUMMARY | 2024-07-23 19:15 | XMS_ITS | Clinical Summary ---
Author Organization [facility] Address [address] [address] [place] [address] Phone Care Team Providers Care Residential Electrician Name Role Phone Vijay Nolasco DO Primary Care Provider [phone] Allergies Active Allergy Reactions Criticality Noted Date [...] STL ABSTRACTION Provider, Abstract 07/04/2024 2:45 PM BURRITO MAKER Telephone Check Up [facility] Oncology and Hematology - [place] [address] [place] [address] Jai Dietrich MD Iron deficiency anemia, unspecified iron deficiency anemia type (Primary Dx); Anemia due to vitamin B12 deficiency, unspecified B12 deficiency type 07/04/2024 External Device Data STL ABSTRACTION Provider, Abstract 07/03/2024 Orders Only [facility] Oncology and Hematology - [place] [address] [place] [id number] Jai Dietrich MD 07/03/2024 Abstract [facility] Oncology and Hematology [facility] [address] [place] [address] Jai Dietrich MD 06/06/2024 External [...] Comments Blood Pressure 127/66 03/29/2024 1:56 PM BURRITO MAKER Pulse 78 03/29/2024 1:56 PM BURRITO MAKER Temperature 36.8 C (98.2 F) 03/29/2024 1:56 PM BURRITO MAKER Respiratory Rate 16 03/29/2024 1:56 PM BURRITO MAKER Oxygen Saturation 96% 03/29/2024 1:56 PM BURRITO MAKER Inhaled Oxygen Concentration - - Weight 154.2 kg (340 lb) 03/29/2024 1:56 PM BURRITO MAKER Height 172.7 cm (5' 8 ) 05/02/2023 9:51 AM BURRITO MAKER Body Mass Index 51.7 05/02/2023 9:51 AM BURRITO MAKER Plan of Treatment Upcoming Encounters Date Type Department Care Team (Late st Contact Info) Description 11/01/2024 2:15 PM CDT Office Visit [facility] Oncology and Hematology [place] [address] [place] [phone] Jai Dietrich MD [address] [facility] [address] [place] [address] Health Maintenance Due Date Last Done Comments HPV VACCINES (1 - Male 3-dose series) 08/08/2015 DTAP/TDAP/TD VACCINES (1 - Tdap) 08/08/2019 HEPATITIS B VACCINES (1 of 3 - 19+ 3-dose series) 07/15 INFLUENZA VACCINE (#1) 2023 Preventative Visit- Commercial 05/16/2024 Procedures Procedure Name Priority Date/Time Associated Diagnosis Comments CBC WITH DIFFERENTIAL Routine 06/25/2024 12:50 PM BURRITO MAKER from Last 3 Months Results * CBC WITH DIFFERENTIAL (06/25/2024 12:50 PM BURRITO MAKER) Blood us Jai Dietrich MD HEMATOLOGY ORDERABLES Final Res ult from Last [address] [place] [address] BLUE PREFERRED Care Teams Residential Electrician Relationship Specialty Start Date End Date Vijay Nolasco DO [address] [facility] [address] [place] [address] PCP - General Internal Medicine 03/29/24
--- OUTSIDE RECORDS SUMMARY | 2024-07-23 19:15 | XMS_ITS | Encounter Summary ---
Author Organization [facility] Address [address] [place] [address] Phone Care Team Providers Care Incident Response Analyst Name Role Phone Vijay Nolasco Primary Care Provider [phone] Encounter Details Date Type Department Care Team (Late st Contact Info) Description 01/26/2022 Behavioral Health [facility] 1 [place] [address] Mychart, Generic Provider [address] [place] [address] Social History Tobacco Use Types Packs/Day Years [...] Ready to change Department associated with goal: [facility] Steps to achieve [...] Ready to change Department associated with goal: [facility] Steps to achieve [...] documented as of this encounter Care Teams Incident Response Analyst Relationship Specialty Start Date End Date Vijay Nolasco DO [address] [address] PCP - General Internal Medicine 07/15/20 documented as of this encounter
[2024-07-23 19:35] VITALS: BP 131/66; PULSE 96; RESP 14; O2SAT 97
--- NOTE | 2024-07-23 19:42 | ED_ITS ---
HPI - Extremity Problem General Chief complaint: Extremity Problem,Nontraumatic <Lakshmi Blanca PA-C - Last Filed: 07/24/24 02:35> Stated complaint: Right chest and elbow pain-no SHOB <CHRISTIAN Francisco Last Filed: 07/24/24 02:35> Time Seen by Provider: 07/23/24 19:39 <CHRISTIAN Francisco Last Filed: 07/24/24 02:35> Source: patient <CHRISTIAN Francisco Last Filed: 07/24/24 02:35> Mode of arrival: ambulatory <CHRISTIAN Francisco Last Filed: 07/24/24 02:35> Limitations: no limitations <CHRISTIAN Francisco Last Filed: 07/24/24 02:35> History of Present Illness HPI Narrative: Patient is a 23-year-old male who presents the ED with multiple complaints. Patient reports having pain throughout his right elbow that began today. States pain intermittently radiates throughout his right arm and up into his chest. Denies aggravating or alleviating factors to the pain. Denies any injury. States this feels as though his psoriatic arthritis may be flaring up. States he has had pain throughout his levels related to this in the past. He is on Skyrizi for this. Denies swelling throughout the arm, numbness. Denies shortness of breath. He does also report having some nausea today. States he has night in several hours and does get nausea when he goes without eating. Feels nauseous currently. Also reports having some right-sided abdominal pain throughout the day today. History of IBS. Denies diarrhea or constipation. Denies fevers. <CHRISTIAN Francisco Last Filed: 07/24/24 02:35> Related Data Home medications: Home Medications ?Medication ?Instructions ?Recorded ?Confirmed ?Last Taken ?Type venlafaxine 150 mg 150 mg PO DAILY 12/12/20 07/24/24 07/20/24 History capsule,extended release 24 hr risankizumab-rzaa 150 mg/mL 150 mg subcut ONCE 06/07/24 07/24/24 Unknown History subcutaneous pen injector (Skyrizi) <Lakshmi Blanca PA-C - Last Filed: 07/24/24 02:35> Allergies/Adverse reactions: Allergies Allergy/AdvReac Type Severity Reaction Status Date / Time vancomycin Allergy Intermediate SWELLING/ITCHING/ ELIO Verified 07/23/24 17:37 SYNDROME <Lakshmi Blanca PA-C - Last Filed: 07/24/24 02:35> Review of Systems 2 Review of Systems: All systems reviewed & are unremarkable except as noted in HPI. <Lakshmi Blanca PA-C - Last Filed: 07/24/24 02:35> All systems reviewed & are unremarkable except as noted in HPI and below < Lakshmi Blanca PA-C - Last Filed: 07/24/24 02:35> FORMERLY [facility], [facility] Past Medical History Medical History: Medical History Psoriatic arthritis Irritable bowel syndrome with diarrhea Diarrhea Morbid obesity with BMI of 45.0-49.9, adult HTN (hypertension) Nasal obstruction Nasal folliculitis Anxiety Tinea corporis Psoriasis Morbid obesity Depression <CHRISTIAN Francisco Last Filed: 07/24/24 02:35> Surgical History Surgical History: Surgical History H/O sinus surgery <CHRISTIAN Francisco Last Filed: 07/24/24 02:35> Family History Family History: Family History Father Alcohol abuse by father Depression Hypertension Mother Depression Diabetes mellitus Glaucoma Grandparent Depression Thyroid disorder <CHRISTIAN Francisco Last Filed: 07/24/24 02:35> Social History Social History: Social History Smoking status: Never smoker Second hand tobacco smoke exposure: No Alcohol intake: never Substance use: never Substance use type: marijuana Other substance usage details: pt stated used daily, stopped four months ago Last use: 3/10/25 Do You Feel Safe in your Home?: Yes Lack of Transportation: No Lack of Food: Never True Current Housing: I Have Housing Concerned About Future Housing: No Difficulty Paying Gas/Electric Bills: No Difficulty Paying for Meds: No Currently Unemployed: No Education: High School Diploma/GED Difficulty w/ Childcare or Family Care: No Living arrangements: with family Occupation/Education: unemployed Gender identity (if verbalized by the patient): Male Spiritual care concerns: No Agree to blood products: Yes <Lakshmi Blanca PA-C - Last Filed: 07/24/24 02:35> Exam 2 Narrative: GENERAL: Well appearing, morbidly obese with BMI of 53.2, non-toxic, in no acute distress. HEAD: Normocephalic, atraumatic. RESPIRATORY: Airway patent, respirations nonlabored. Clear to auscultation bilaterally, no rales, rhonchi, wheezing. CARDIOVASCULAR: Regular rate and rhythm without murmurs, rubs, or gallops. ABDOMINAL: Soft, mild tenderness palpation in right mid abdomen and lower quadrant. Palpation of abdomen causing worsening of nausea. Nondistended. Normoactive BS. MUSCULOSKELETAL: Moves all extremities. No gross deformities. No significant tenderness throughout right upper extremity, right elbow joint. Full range of motion of right arm. No swelling of olecranon. No evidence of bursitis. There is a plaque like lesion consistent with psoriasis present along R proximal forearm, but does not appear acutely inflamed or erythematous. No signs of infection. Sensation intact throughout RUE. SKIN: Warm, dry, normal color. NEURO: A&O X3. Speech clear. Cranial nerves II-XII grossly intact. No ataxic movements. PSYCHIATRIC: Appropriate mood and affect. Normal interaction. <Lakshmi Blanca PA-C - Last Filed: 07/24/24 02:35> Course PROSTHETICS LAB TECHNICIAN/PA Physician Supervision For this patient encounter, I reviewed the PROSTHETICS LAB TECHNICIAN or PA documentation, treatment plan, and medical decision making and had [id number] time with this patient. I performed all aspects of the MDM as documented. <Jluis Lott MD - Last Filed: 07/24/24 03:22> Vital Signs Vital signs: Vital Signs Temperature 98.1 F 07/23/24 17:37 Pulse Rate 83 07/23/24 17:37 Respiratory Rate 20 07/23/24 17:37 Blood Pressure 144/96 H 07/23/24 17:37 Pulse Oximetry 99 07/23/24 17:37 Oxygen Delivery Room Air 07/23/24 17:37 Temperature 97.9 F 07/24/24 00:57 Pulse Rate 89 07/24/24 00:57 Respiratory Rate 18 07/24/24 00:57 Blood Pressure 116/48 L 07/24/24 00:57 Pulse Oximetry 97 07/24/24 00:57 Oxygen Delivery Room Air 07/23/24 17:37 <Lakshmi Blanca PA-C - Last Filed: 07/24/24 02:35> Vital Signs Temperature 98.1 F 07/23/24 17:37 Pulse Rate 83 07/23/24 17:37 Respiratory Rate 20 07/23/24 17:37 Blood Pressure 144/96 H 07/23/24 17:37 Pulse Oximetry 99 07/23/24 17:37 Oxygen Delivery Room Air 07/23/24 17:37 Temperature 97.9 F 07/24/24 00:57 Pulse Rate 89 07/24/24 00:57 Respiratory Rate 18 07/24/24 00:57 Blood Pressure 116/48 L 07/24/24 00:57 Pulse Oximetry 97 07/24/24 00:57 Oxygen Delivery Room Air 07/23/24 17:37 <Jluis Lott MD - Last Filed: 07/24/24 03:22> MDM - Extremity (Nontraumatic) MDM Narrative Medical decision making narrative: Patient presented to ED with multiple complaints, right elbow pain radiating to right chest. Right lower abdominal pain, nausea/vomiting. Vital signs are stable upon arrival. Patient in no acute distress, but did have an episode of active emesis upon my evaluation. EKG is without concerning ischemic changes. Troponin detectable x2. Chest x- ray is clear. HEART score =1, low suspicion for ACS at this time. Right elbow x-ray is negative. Basic laboratory studies are unremarkable. No leukocytosis. Stable electrolytes. Stable kidney function. Blood glucose 127. Normal LFTs and lipase. CT scan of abdomen/pelvis obtained showing findings concerning for early/mild acute appendicitis. On re-evaluation, patient is feeling somewhat improved, but is reporting worsening/ongoing pain in his right lower quadrant. He does have focal tenderness in right lower quadrant. Will discuss with General surgery. Dr. Lizarraga in the ED to see patient. Discussed case. Recommended IV antibiotics, admit to hospitalist team, will re-evaluate in the morning. Rocephin and Flagyl initiated per ED antibiotic stewardship. Discussed case with Lorna HERNANDEZ hospitalist, accepted patient for admission. Patient in agreement with plan and admission. <Lakshmi Blanca PA-C - Last Filed: 07/24/24 02:35> Medical Records Attestation: I reviewed the patient's medical records. <Lakshmi Blanca PA-C - Last Filed: 07/24/24 02:35> Lab Data Attestation: I reviewed the patient's lab results. <Laskhmi Blanca PA-C - Last Filed: 07/24/24 02:35> Result diagrams: 07/23/24 17:48 07/23/24 17:48 <Lakshmi Blanca PA-C - Last Filed: 07/24/24 02:35> Labs: Lab Results 07/23/24 07/23/24 07/23/24 Range/Units 17:48 20:46 21:12 WBC 7.4 (4.5-10.0) K/mm3 RBC 5.37 (4.6-6.20) M/mm3 Hgb 14.3 (14.0-18.0) g/dL Hct 44.3 (42.0-52.0) % MCV 82.5 (80-100) fl MCH 26.6 (26-34) pg MCHC 32.3 (32-36) g/dl RDW 14.3 (11.5-14.5) % Plt Count 303 (150-375) k/mm3 MPV 10.9 H (7.4-10.4) fl Immature Gran % (Auto) 0.4 (0-0.5) % Neut % (Auto) 74.4 H (45.5-73.1) % Lymph % (Auto) 11.4 L (18.3-44.2) % Starke % (Auto) 10.1 H (2.6-8.5) % Eos % (Auto) 3.4 (0-4.4) % Baso % (Auto) 0.3 (0.2-1.2) % Lymph # (Auto) 0.84 L (0.9-3.2) K/mm3 Starke # (Auto) 0.8 H (0.1-0.6) K/mm3 Eos # (Auto) 0.3 (0-0.3) K/mm3 Baso # (Auto) 0.0 (0.0-0.1) K/mm3 Abs Immat Gran (auto) 0.03 (0.00-0.031) K/mm3 Absolute Neuts (auto) 5.5 (1.3-6.7) K/mm3 Absolute Nucleated RBC 0.000 (0.0-0.012) K/mm3 Nucleated RBC % 0.0 (0.0-0.2) % ESR 57 H (0-20) mm/hr PT 13.8 (11.1-14.7) Seconds INR 1.0 APTT 30.3 (22.3-36.8) Seconds Sodium 141 (137-145) mmol/L Potassium 3.9 (3.4-5.0) mmol/L Chloride 105 (98-107) mmol/L Carbon Dioxide 25 (22-30) mmol/L Anion Gap 11 (4-12) mmol/L BUN 9 D (9-20) mg/dL Creatinine 0.73 (0.7-1.3) mg/dL Estim Creat Clear Calc 196 ml/min Estimated GFR > 60 (59 - ) Glucose 127 H (65-110) mg/dL Hemoglobin A1c 5.2 (<5.7) % Calcium 9.3 (8.4-10.2) mg/dL Total Bilirubin 0.6 (0.2-1.3) mg/dL AST 21 (17-59) U/L ALT 36 (6-50) U/L Alkaline Phosphatase 112 (38-126) U/L Troponin I < 0.012 < 0.012 (0.000-0.034) ng/mL C-Reactive Protein 2.7 H (<1.0) mg/dL Total Protein 8.0 (6.3-8.2) g/dL Albumin 4.6 (3.5-5.1) g/dL Triglycerides 90 (<150) mg/dL Cholesterol 178 (0-200) mg/dL LDL Cholesterol Direct 115 mg/dL HDL Direct 33 mg/dL Lipase 27 (23-300) U/L TSH 2.080 (0.465-4.680) uIU/mL Urine Color Dark yellow (Yellow) Urine Appearance Clear (Clear) Urine pH 5.5 (5.0-9.0) Ur Specific Charlotte > 1.045 H (1.001-1.035) Urine Protein Trace (Negative) mg/dL Urine Glucose (UA) Negative (Negative) mg/dL Urine Ketones Trace H (Negative) mg/dL Ur Blood (Man) Negative (Negative) Urine Nitrate Negative (Negative) Urine Bilirubin Negative (Negative) Urine Urobilinogen 1.0 (<2.0) mg/dL Add Ur Microanalysis Reviewed Leukocyte Esterase Rfl Negative (Negative) BRIAN/UL Urine RBC 0-2 (0-2) /hpf Urine WBC 0-5 (0-3) /hpf Ur Squamous Epith Cells Occasional (Few) /hpf Urine Bacteria None seen /hpf Urine Casts 3-5 <Lakshmi Blanca PA-C - Last Filed: 07/24/24 02:35> Lab Results 07/23/24 07/23/24 07/23/24 Range/Units 17:48 20:46 21:12 WBC 7.4 (4.5-10.0) K/mm3 RBC 5.37 (4.6-6.20) M/mm3 Hgb 14.3 (14.0-18.0) g/dL Hct 44.3 (42.0-52.0) % MCV 82.5 (80-100) fl MCH 26.6 (26-34) pg MCHC 32.3 (32-36) g/dl RDW 14.3 (11.5-14.5) % Plt Count 303 (150-375) k/mm3 MPV 10.9 H (7.4-10.4) fl Immature Gran % (Auto) 0.4 (0-0.5) % Neut % (Auto) 74.4 H (45.5-73.1) % Lymph % (Auto) 11.4 L (18.3-44.2) % Starke % (Auto) 10.1 H (2.6-8.5) % Eos % (Auto) 3.4 (0-4.4) % Baso % (Auto) 0.3 (0.2-1.2) % Lymph # (Auto) 0.84 L (0.9-3.2) K/mm3 Starke # (Auto) 0.8 H (0.1-0.6) K/mm3 Eos # (Auto) 0.3 (0-0.3) K/mm3 Baso # (Auto) 0.0 (0.0-0.1) K/mm3 Abs Immat Gran (auto) 0.03 (0.00-0.031) K/mm3 Absolute Neuts (auto) 5.5 (1.3-6.7) K/mm3 Absolute Nucleated RBC 0.000 (0.0-0.012) K/mm3 Nucleated RBC % 0.0 (0.0-0.2) % ESR 57 H (0-20) mm/hr PT 13.8 (11.1-14.7) Seconds INR 1.0 APTT 30.3 (22.3-36.8) Seconds Sodium 141 (137-145) mmol/L Potassium 3.9 (3.4-5.0) mmol/L Chloride 105 (98-107) mmol/L Carbon Dioxide 25 (22-30) mmol/L Anion Gap 11 (4-12) mmol/L BUN 9 D (9-20) mg/dL Creatinine 0.73 (0.7-1.3) mg/dL Estim Creat Clear Calc 196 ml/min Estimated GFR > 60 (59 - ) Glucose 127 H (65-110) mg/dL Hemoglobin A1c 5.2 (<5.7) % Calcium 9.3 (8.4-10.2) mg/dL Total Bilirubin 0.6 (0.2-1.3) mg/dL AST 21 (17-59) U/L ALT 36 (6-50) U/L Alkaline Phosphatase 112 (38-126) U/L Troponin I < 0.012 < 0.012 (0.000-0.034) ng/mL C-Reactive Protein 2.7 H (<1.0) mg/dL Total Protein 8.0 (6.3-8.2) g/dL Albumin 4.6 (3.5-5.1) g/dL Triglycerides 90 (<150) mg/dL Cholesterol 178 (0-200) mg/dL LDL Cholesterol Direct 115 mg/dL HDL Direct 33 mg/dL Lipase 27 (23-300) U/L TSH 2.080 (0.465-4.680) uIU/mL Urine Color Dark yellow (Yellow) Urine Appearance Clear (Clear) Urine pH 5.5 (5.0-9.0) Ur Specific [place] > 1.045 H (1.001-1.035) Urine Protein Trace (Negative) mg/dL Urine Glucose (UA) Negative (Negative) mg/dL Urine Ketones Trace H (Negative) mg/dL Ur Blood (Man) Negative (Negative) Urine Nitrate Negative (Negative) Urine Bilirubin Negative (Negative) Urine Urobilinogen 1.0 (<2.0) mg/dL Add Ur Microanalysis Reviewed Leukocyte Esterase Rfl Negative (Negative) BRIAN/UL Urine RBC 0-2 (0-2) /hpf Urine WBC 0-5 (0-3) /hpf Ur Squamous Epith Cells Occasional (Few) /hpf Urine Bacteria None seen /hpf Urine Casts 3-5 <Jluis Lott MD - Last Filed: 07/24/24 03:22> Imaging Data Attestation: I personally reviewed and interpreted this imaging study as follows: < Lakshmi Blanca PA-C - Last Filed: 07/24/24 02:35> Radiologist's impression: ITS Impressions Chest X-Ray 07/23/24 18:05 IMPRESSION: No focal infiltrate or effusion. Elbow X-Ray 07/23/24 20:32 IMPRESSION: No acute osseous finding in the right elbow. Abdomen/Pelvis CT 07/23/24 21:19 IMPRESSION: Mild hepatomegaly and steatosis. Gallbladder hydrops, probably due to fasting. No inflammatory changes, obstructing stone or biliary dilatation. Findings suspicious for early appendicitis. Cystitis versus urinary bladder wall thickening from inadequate distention. <Lakshmi Blanca PA-C - Last Filed: 07/24/24 02:35> ECG Data EKG #1: Attestation EKG: I personally reviewed and interpreted this ECG as follows: <Lakshmi Blanca PA-C - Last Filed: 07/24/24 02:35> ECG completion date: 07/23/24 <CHRISTIAN Francisco Last Filed: 07/24/24 02:35> ECG completion time: 17:44 <CHRISTIAN Francisco Last Filed: 07/24/24 02:35> EKG Interpretation: normal rate (75), sinus rhythm and non-specific ST changes <CHRISTIAN Francisco Last Filed: 07/24/24 02:35> Discharge Plan Discharge Clinical Impression: Atypical chest pain, Nausea Acute appendicitis Qualifiers: Acute appendicitis type: with localized peritonitis Appendicitis gangrene presence: without gangrene Appendicitis perforation presence: without perforation Appendicitis abscess presence: without abscess Qualified Code(s): K 35.30 - Acute appendicitis with localized peritonitis, without perforation or gangrene Strain of right elbow Qualifiers: Encounter type: initial encounter Qualified Code(s): S56.911A - Strain of unspecified muscles, fascia and tendons at forearm level, right arm, initial encounter <CHRISTIAN Francisco Last Filed: 07/24/24 02:35> Patient Disposition: Still a Patient <CHRISTIAN Francisco Last Filed: 07/24/24 02:35> Condition: Stable <CHRISTIAN Farncisco Last Filed: 07/24/24 02:35> Quality HEART score for chest pain patients History: slightly suspicious <CHRISTIAN Francisco Last Filed: 07/24/24 02:35> ECG: normal <CHRISTIAN Francisco Last Filed: 07/24/24 02:35> Age: < or = to 45 years <CHRISTIAN Francisco Last Filed: 07/24/24 02:35> Risk factors: 1 or 2 risk factors <CHRISTIAN Francisco Last Filed: 07/24/24 02:35> Troponin: < or = to 1x normal limit <CHRISTIAN Francisco Last Filed: 07/24/24 02:35> Heart score: 1 <CHRISTIAN Francisco Last Filed: 07/24/24 02:35> 1 <Jluis Lott MD - Last Filed: 07/24/24 03:22>
--- OUTSIDE RECORDS SUMMARY | 2024-07-23 19:52 | XMS_ITS | Encounter Summary ---
Author Organization [facility] Address [address] [place] [address] Phone Care Team Providers Care Medical Insurance Biller Name Role Phone Vijay Nolasco Primary Care Provider [phone] Encounter Details Date Type Department Care Team (Late st Contact Info) Description 01/26/2022 Behavioral [facility] [address] [place] [address] Mychart, Generic Provider [address] [place] [address] Social History Tobacco Use Types Packs/Day Years [...] Ready to change Department associated with goal: [facility] Steps to achieve [...] Ready to change Department associated with goal: [facility] Steps to achieve [...] documented as of this encounter Care Teams Medical Insurance Biller Relationship Specialty Start Date End Date Vijay Nolasco DO [address] [address] PCP - General Internal Medicine 07/15/20 documented as of this encounter
--- OUTSIDE RECORDS SUMMARY | 2024-07-23 19:52 | XMS_ITS | Encounter Summary ---
Author Organization [facility] Address [address] [place] [address] Phone Care Team Providers Care Material Crew Supervisor Name Role Phone Vijay Nolasco Primary Care Provider [phone] Encounter Details Date Type Department Care Team (Late st Contact Info) Description 12/22/2021 [facility] [address] [place] [address] Mychart, Generic Provider [address] [place] [address] Social History Tobacco Use Types Packs/Day Years [...] Ready to change Department associated with goal: [facility] SERVICES Steps to [...] Ready to change Department associated with goal: [facility] Steps to [...] documented as of this encounter Care Teams Material Crew Supervisor Relationship Specialty Start Date End Date Vijay Nolasco DO [address] [address] PCP - General Internal Medicine 07/15/20 documented as of this encounter
--- OUTSIDE RECORDS SUMMARY | 2024-07-23 19:52 | XMS_ITS | Clinical Summary ---
Author Organization [facility] Address [address] [address] [place] [address] Phone Care Team Providers Care Solid Waste Disposal Manager Name Role Phone Vijay Nolasco DO Primary Care Provider [phone] Allergies Active Allergy Reactions Criticality Noted Date [...] STL ABSTRACTION Provider, Abstract 07/04/2024 2:45 PM EMERGENCY PHYSICIAN Telephone Check Up [facility] - [place] [address] [place] [address] Jai Dietrich MD Iron deficiency anemia, unspecified iron deficiency anemia type (Primary Dx); Anemia due to vitamin B12 deficiency, unspecified B12 deficiency type 07/04/2024 External Device Data STL ABSTRACTION Provider, Abstract 07/03/2024 Orders Only [facility] - [place] [address] [place] [id number] Jai Dietrich MD 07/03/2024 Abstract [facility] [address] [place] [address] Jai Dietrich MD 06/06/2024 External [...] Comments Blood Pressure 127/66 03/29/2024 1:56 PM EMERGENCY PHYSICIAN Pulse 78 03/29/2024 1:56 PM EMERGENCY PHYSICIAN Temperature 36.8 C (98.2 F) 03/29/2024 1:56 PM EMERGENCY PHYSICIAN Respiratory Rate 16 03/29/2024 1:56 PM EMERGENCY PHYSICIAN Oxygen Saturation 96% 03/29/2024 1:56 PM EMERGENCY PHYSICIAN Inhaled Oxygen Concentration - - Weight 154.2 kg (340 lb) 03/29/2024 1:56 PM EMERGENCY PHYSICIAN Height 172.7 cm (5' 8 ) 05/02/2023 9:51 AM EMERGENCY PHYSICIAN Body Mass Index 51.7 05/02/2023 9:51 AM EMERGENCY PHYSICIAN Plan of Treatment Upcoming Encounters Date Type Department Care Team (Late st Contact Info) Description 11/01/2024 2:15 PM CDT Office Visit [facility] [place] [address] [place] [phone] Jai Dietrich MD [address] [facility] [address] [place] [id number] Health Maintenance Due Date Last Done Comments HPV VACCINES (1 - Male 3-dose series) 08/08/2015 DTAP/TDAP/TD VACCINES (1 - Tdap) 08/08/2019 HEPATITIS B VACCINES (1 of 3 - 19+ 3-dose series) 07/15 INFLUENZA VACCINE (#1) 2023 Preventative Visit- Commercial 05/16/2024 Procedures Procedure Name Priority Date/Time Associated Diagnosis Comments CBC WITH DIFFERENTIAL Routine 06/25/2024 12:50 PM EMERGENCY PHYSICIAN from Last 3 Months Results * CBC WITH DIFFERENTIAL (06/25/2024 12:50 PM EMERGENCY PHYSICIAN) Blood us Jai Dietrich MD HEMATOLOGY ORDERABLES Final Res ult from Last [address] [place] [address] BLUE PREFERRED Care Teams Solid Waste Disposal Manager Relationship Specialty Start Date End Date Vijay Nolasco DO [address] [facility] [address] [place] [address] PCP - General Internal Medicine 03/29/24
--- OUTSIDE RECORDS SUMMARY | 2024-07-23 19:52 | XMS_ITS | Clinical Summary ---
Author Organization [facility] Address [address] [place] [address] Phone Care Team Providers Care Croze Cutter Helper Name Role Phone Vijay Nolasco Primary Care Provider [phone] Medications SERTRALINE HCL PO Take by mouth. [...] Ready to change Department associated with goal: [facility] BE[facility]AVIOR[facility] HE[facility] SERVICES Steps to achieve [...] Ready to change Department associated with goal: [facility] Steps to achieve goal: Patient counseled on healthy coping skills for depression for the duration of 45 min sessions, 1-2 times monthly Patient counseled on setting healthy boundaries for duration of the 45 min sessions, 1-2 times monthly Patient counseled on aspects of healthy self-care for duration of the 45 min sessions, 1-2 times monthly Insurance [facility] Care Teams Croze Cutter Helper Relationship Specialty Start Date End Date Vijay Nolasco DO [address] [facility] [address] [place] [address] PCP - General Internal Medicine 07/15/20
--- OUTSIDE RECORDS SUMMARY | 2024-07-23 19:52 | XMS_ITS | Encounter Summary ---
Author Organization [facility] Address [address] [place] [address] Phone Care Team Providers Care Box Truck Driver Name Role Phone Vijay Nolasco Primary Care Provider [phone] Encounter Details Date Type Department Care Team (Late st Contact Info) Description 10/27/[address] [facility] 1 [place] [address] Mychart, Generic Provider [address] [place] [address] Social History Tobacco Use Types Packs/Day Years [...] Ready to change Department associated with goal: [facility] BE[facility]AVIOR[facility] HE[facility] SERVICES Steps to [...] Ready to change Department associated with goal: [facility] BE[facility] HE[facility] Steps to [...] documented as of this encounter Care Teams Box Truck Driver Relationship Specialty Start Date End Date Vijay Nolasco DO [address] [address] PCP - General Internal Medicine 07/15/20 documented as of this encounter
--- NOTE | 2024-07-23 20:38 | ECG_ITS ---
Test Date: 2024-07-23 21:05:10 Measurements Intervals [place] Rate: 89 P: 66 CT: 177 QRS: 92 QRSD: 102 T: 42 QT: 342 QTc: 418 Interpretive Statements SINUS RHYTHM BORDERLINE RIGHT AXIS DEVIATION [QRS AXIS > 90] LOW QRS VOLTAGE IN PRECORDIAL LEADS [QRS DEFLECTION < 1.0 mV IN CHEST LEADS] POSSIBLE ANTERIOR MYOCARDIAL INFARCTION , PROBABLY OLD [30 ms Q WAVE IN V3/V4, OR R < 0.2 mV IN V4] Compared to ECG 07/23/2024 17:44:56 No significant changes Electronically Signed On 07-24-2024 14:36:55 CDT by Lauro Camarena M.D.
[2024-07-23 21:20] LABS: Troponin I < 0.012 ng/mL (0.000-0.034)
[2024-07-23] MEDS: SODIUM CHLORIDE 0.9% IV 1,000 ML 999 ML IV CONT (21:31)
[2024-07-23 21:42] LABS: Add Urine Microscopic? YES; Appearance Urine Clear (Clear); Bacteria Urine None Seen /hpf; Bilirubin Urine Negative (Negative); Blood Urine Negative (Negative); Color Urine Dark Yellow (Yellow); Glucose Urine UA Negative (Negative); Ketones Urine Trace mg/dL (Negative); Leukocyte Esterase Ur Negative LEU/UL (Negative); Need Manual Microscopic Reviewed; Nitrate Urine Negative (Negative); Protein Urine Trace mg/dL (Negative); RBC Urine 0-2 /hpf (0-2); Specific Grav Ur > 1.045 (1.001-1.035); Squamous Epithelial Cell Urine Occasional /hpf (Few); WBC Urine 0-5 /hpf (0-3); pH Urine 5.5 (5.0-9.0)
[2024-07-23 22:55] VITALS: BP 126/63; PULSE 82; RESP 17; O2SAT 95
--- NOTE | 2024-07-23 23:20 | P.HP_ITS ---
H&P: HPI History of Present Illness Date/Time: 07/23/24 23:20 Chief Complaint: abdominal pain Right chest pain Right elbow pain Narrative: This is a 23 year old with a significant past medical history of psoriatic arthritis, irritable bowel syndrome, morbid obesity, hypertension, anxiety, depression who presented to the hospital with right elbow pain, right sided chest pain, nausea and right sided abdominal pain. Patient states that his symptoms started yesterday and he was noted to have some nausea and right lower quadrant abdominal pain. He denies any vomiting, diarrhea, chest pain, shortness a breath, fever, chills at the time of my assessment. He states that the pain in his elbow and in his chest has resolved. Work up in the hospital included a chest x-ray which did not show any infiltrate or effusion. Right elbow x-ray was negative for any acute osseous findings. Abdomen/pelvis CT shows mild hepatomegaly and steatosis, gallbladder hydrops due to fasting, finding suspicious for early appendicitis, cystitis versus urinary bladder wall thickening from an adequate distention. Initial labs showed a normal white blood cell count of 7.4, blood sugar 127, troponin negative x2, lipase 27. A UA was obtained which showed greater than 1.045 urine specific gravity, trace ketones, otherwise normal. EKG showed a sinus rhythm with borderline right axis deviation with a rate of 89, QTC 418. General surgery was consulted and suggested IV antibiotics in the interim while patient decides if he wants to have surgery or not. His chest pain was ruled out with negative troponin and negative chest x-ray. His right elbow pain is likely a flare up of his psoriatic arthritis. He is on Skyrizi for his psoriatic arthritis. He was started on Rocephin and Flagyl, given Zofran, Pepcid, and IV fluids while in the ED. Review of Systems Review of Systems: All systems reviewed & are unremarkable except as noted in HPI and below PMFSH Past Medical History Medical History Psoriatic arthritis Irritable bowel syndrome with diarrhea Diarrhea Morbid obesity with BMI of 45.0-49.9, adult HTN (hypertension) Nasal obstruction Nasal folliculitis Anxiety Tinea corporis Psoriasis Morbid obesity Depression Surgical History Surgical History H/O sinus surgery Family History Family History Father Alcohol abuse by father Depression Hypertension Mother Depression Diabetes mellitus Glaucoma Grandparent Depression Thyroid disorder Social History Social History Smoking status: Never smoker Second hand tobacco smoke exposure: No Alcohol intake: never Substance use: never Substance use type: marijuana Other substance usage details: pt stated used daily, stopped four months ago Last use: 07/23/24 Do You Feel Safe in your Home?: Yes Lack of Transportation: No Lack of Food: Never True Current Housing: I Have Housing Concerned About Future Housing: No Difficulty Paying Gas/Electric Bills: No Difficulty Paying for Meds: No Currently Unemployed: No Education: High School Diploma/GED Difficulty w/ Childcare or Family Care: No Living arrangements: with family Occupation/Education: unemployed Gender identity (if verbalized by the patient): Male Spiritual care concerns: No Agree to blood products: Yes Meds Home Medications and Allergies Home Medications ?Medication ?Instructions ?Recorded ?Confirmed ?Type venlafaxine 150 mg 150 mg PO DAILY 12/12/20 07/24/24 History capsule,extended release 24 hr losartan 100 1 tablet PO DAILY #90 tabs 11/04/23 07/24/24 Rx mg-hydrochlorothiazide 12.5 mg tablet amlodipine 10 mg tablet See Rx Instructions .Route 06/04/24 07/24/24 Rx .COMPLEX #90 tabs risankizumab-rzaa 150 mg/mL 150 mg subcut ONCE 06/07/24 07/24/24 History subcutaneous pen injector (Ebenezeryramelia) ondansetron 4 mg disintegrating 4 mg PO Q8H PRN nausea and 07/23/24 Rx tablet vomiting #15 tabs Allergies Allergy/AdvReac Type Severity Reaction Status Date / Time vancomycin Allergy Intermediate SWELLING/ITCHING/ ELIO Verified 07/23/24 17:37 SYNDROME Vital Signs Vital Signs - 24 hr 07/23/24 17:37 07/23/24 19:35 07/23/24 22:55 Temperature 98.1 F Pulse Rate 83 96 82 Respiratory Rate 20 14 17 Blood Pressure 144/96 H 131/66 126/63 Pulse Oximetry 99 97 95 Oxygen Delivery Room Air Exam Narrative: General: In no acute distress, well nourished Head: atraumatic, no encephalopathy Eyes: PERRLA, sclera clear ENT: moist mucous membranes, nasal passages clear Neck: supple, no JVD, no adenopathy, trachea midline Cardiac: Normal S1 and S2. RRR, No murmur, gallops or friction rubs, peripheral pulses intact. Respiratory: Lungs clear to auscultation, no adventitious lung sounds, currently on room air Gastrointestinal: soft, non-distended, mild right lower quadrant tenderness, hypoactive bowel sounds. : voiding without difficulty. Extremities: moves all extremities well, no edema, good ROM, strength 5/5 Skin: clean, dry, intact. No wounds or lesions. Neuro: Alert and oriented x4, cranial nerves intact, no neuro deficits. Psych: normal mood, normal affect, interactive H&P: Results Labs Labs: Short CBC 07/23/24 Range/Units 17:48 WBC 7.4 (4.5-10.0) K/mm3 Hgb 14.3 (14.0-18.0) g/dL Hct 44.3 (42.0-52.0) % Plt Count 303 (150-375) k/mm3 BMP 07/23/24 17:48 Sodium 141 Potassium 3.9 Chloride 105 Carbon Dioxide 25 BUN 9 D Creatinine 0.73 Glucose 127 H Calcium 9.3 Cardiac Enzymes 07/23/24 07/23/24 Range/Units 17:48 20:46 Troponin I < 0.012 < 0.012 (0.000-0.034) ng/mL Liver Function 07/23/24 Range/Units 17:48 Total Bilirubin 0.6 (0.2-1.3) mg/dL AST 21 (17-59) U/L ALT 36 (6-50) U/L Alkaline Phosphatase 112 (38-126) U/L Albumin 4.6 (3.5-5.1) g/dL Urine 07/23/24 Range/Units 21:12 Urine Color Dark yellow (Yellow) Urine Appearance Clear (Clear) Urine pH 5.5 (5.0-9.0) Ur Specific [place] > 1.045 H (1.001-1.035) Urine Protein Trace (Negative) mg/dL Urine Glucose (UA) Negative (Negative) mg/dL Imaging Chest x-ray: Radiologist's impression: CHEST RADIOGRAPH, PA AND LATERAL CLINICAL HISTORY: cp FOR 1 DAY . COMPARISON: 06/05/2021 TECHNIQUE: PA and lateral views of the chest. FINDINGS The cardiomediastinal silhouette is enlarged, specifically within the left atrium. The lungs are clear. Visualized osseous structures and soft tissues are unremarkable. IMPRESSION: No focal infiltrate or effusion. Reviewed, dictated and finalized at location A. Right elbow x-ray: Radiologist's impression: EXAM: XR elbow RT min 3V DATE: 07/23/2024 20:00 HISTORY: pain . COMPARISON: None available. FINDINGS: Normal mineralization. No fracture or dislocation. No lytic or blastic lesion. Joint spaces are maintained. No erosion or periosteal change. Soft tissues within normal limits. IMPRESSION: No acute osseous finding in the right elbow. Reviewed, dictated and finalized at location K. Abdomen/pelvis CT: Radiologist's impression: EXAMINATION: CT abdomen pelvis w con DATE: 07/23/2024 20:59 INDICATION: r sided pain, n/v TECHNIQUE: Computed tomography (CT) of the abdomen and pelvis was performed with 100 mL Omnipaque-350 intravenous contrast. Automated exposure control and iterative reconstruction technique were employed. The dose-length product was 1723.47 mGy-cm. COMPARISON: 06/22/2021. FINDINGS: Lower thorax: Unremarkable Liver: Diffusely low-density parenchyma. Enlarged Biliary/Gallbladder: Mildly distended, without inflammatory change or stones No bile duct dilation. Pancreas: Fatty atrophy. Spleen: Normal. Adrenals:No mass. Kidneys: No suspicious mass, obstructing stone, or hydronephrosis. GI tract: No small or large bowel dilation. The distal appendix is mildly dilated to 8 mm, with hyperemia of the wall. No surrounding inflammatory change. Minimal scattered diverticulosis without diverticulitis. Mesentery/Peritoneum: No ascites, mass, or free air. Retroperitoneum: No mass. Pelvis: Partially distended urinary bladder with wall thickening. Normal prostate. Soft Tissues: Soft tissues and body wall unremarkable. Bones: No acute osseous finding. Chronic bilateral L5 pars defects and grade 1 L5-S1 anterolisthesis IMPRESSION: Mild hepatomegaly and steatosis. Gallbladder hydrops, probably due to fasting. No inflammatory changes, obstructing stone or biliary dilatation. Findings suspicious for early appendicitis. Cystitis versus urinary bladder wall thickening from inadequate distention. Reviewed, dictated and finalized at location K. Assessment and Plan Assessment and plan (1) Acute appendicitis: Code(s): K35.80 - Unspecified acute appendicitis Status: Acute Assessment and Plan: * Abdomen/pelvis CT shows mild hepatomegaly and steatosis, gallbladder hydrops, finding suspicious for early appendicitis, cystitis versus urinary bladder wall thickening from inadequate distension * General surgery was consulted * Continue Rocephin and Flagyl * Continue pain control * Continue antiemetics for nausea * Continue NPO status for potential surgery in a.m. (2) Atypical chest pain: Code(s): R07.89 - Other chest pain Status: Acute Assessment and Plan: * Chest x-ray negative * Troponin negative x2 * Awaiting 3rd troponin * Heart score-1 low suspicion * EKG showing sinus rhythm with borderline right axis deviation with a rate of 75, QTC 408 (3) Psoriatic arthritis: Code(s): L40.50 - Arthropathic psoriasis, unspecified Status: Acute Assessment and Plan: * Currently on Skyrizi * Right elbow x-ray negative * ESR 57, C reactive protein 2.7 * Trend ESR/CRP * Avoid use of steroids * Supportive care * Will need to referral to a new [facility] upon discharge (4) HTN (hypertension): Qualifiers: Hypertension type: primary hypertension Qualified Code(s): I10 - Essential (primary) hypertension Code(s): I10 - Essential (primary) hypertension Status: Acute Assessment and Plan: * Blood pressure ranging 126/63 to 144/96 * Continue losartan/hydrochlorothiazide and amlodipine (5) Anxiety: Code(s): F41.9 - Anxiety disorder, unspecified Status: Acute Assessment and Plan: * Continue venlafaxine (6) Depression: Code(s): F32.9 - Major depressive disorder, single episode, unspecified Status: Acute Assessment and Plan: * Continue venlafaxine (7) Morbid obesity: Code(s): E66.01 - Morbid (severe) obesity due to excess calories Status: Acute Assessment and Plan: * BMI 53.8, 155.9 kg * Educate on benefits of low fat diet and exercise program * [employer] Line Leader consulted Quality VTE Prophylaxis VTE prophylaxis: pharmacologic ordered Hospitalist MIPS Advance Care Plan I have confirmed that the patient's Advanced Care Plan is present, code status is documented, or surrogate decision maker is listed in patient medical record.: Yes Medication Reconciliation I have utilized all available resources to obtain, update and review the patients current medications (includes all prescriptions, OTC, herbals, cannabis, and nutritional supplements).: Yes
[2024-07-24] MEDS: MORPHINE SULFATE (*CRX) 2 MG/ML INJ IV PUSH (00:09)
[2024-07-24] MEDS: ONDANSETRON INJ 4 MG/2 ML VIAL IV PUSH ×2 (00:09→09:48)
[2024-07-24] MEDS: metroNIDAZOLE 500 MG/ISO 100ML 500 MG/100 ML BAG 100 MG IVPB ×3 (00:10→13:20)
[2024-07-24 00:17] VITALS: BP 165/68; PULSE 78; RESP 12; O2SAT 98
[2024-07-24 00:24] LABS: Cholesterol 178 mg/dL (0-200); HDL Direct 33 mg/dL; Triglycerides 90 mg/dL (<150)
[2024-07-24 00:27] LABS: CRP 2.7 mg/dL (<1.0)
[2024-07-24 00:35] LABS: LDL Cholesterol Direct 115 mg/dL
[2024-07-24 00:37] VITALS: BMI 53.1
--- NOTE | 2024-07-24 00:45 | ADMGEN ---
This patient, Augusto Benton, was admitted to 3 [facility] Surg Room 331-01. Patient/family oriented to hospital policies and general routines including ID bracelet, bed and alarms, visiting hours, pain management, procedures, bathroom and other care routines, personal items, smoking policy, room service/diet, and visiting hours. Information on how to activate the Rapid Response Team has been discussed. Patient/Family are encouraged to report perceived risks to care and to ask questions if they do not understand what they are told or what they should do.
[2024-07-24 00:57] VITALS: BP 116/48; PULSE 89; RESP 18; TEMP 36.6; O2SAT 97
[2024-07-24 00:58] LABS: Erythrocyte Sedimentation Rate 57 mm/hr (0-20)
[2024-07-24] MEDS: SODIUM CHLORIDE 0.9% IV 1,000 ML 100 ML IV CONT (01:22)
[2024-07-24 02:34] LABS: Hemoglobin A1C 5.2 % (<5.7)
[2024-07-24 06:00] VITALS: BP 129/62; PULSE 72; RESP 18; TEMP 36.6; O2SAT 93
[2024-07-24 06:28] LABS: Basophils Percent Auto 0.4 % (0.2-1.2); Eosinophils Absolute Auto 0.2 K/mm3 (0-0.3); Eosinophils Percent Auto 2.3 % (0-4.4); Hematocrit 38.8 % (42.0-52.0); Hemoglobin 12.3 g/dL (14.0-18.0); Immature Granulocyte Absolute 0.02 K/mm3 (0.00-0.031); Immature Granulocyte Percent A 0.3 % (0-0.5); Lymphocytes Absolute Auto 1.08 K/mm3 (0.9-3.2); Lymphocytes Percent Auto 15.7 % (18.3-44.2); Mean Corpuscular HGB Conc 31.7 g/dl (32-36); Mean Corpuscular Hemoglobin 26.7 pg (26-34); Mean Corpuscular Volume 84.2 fl (80-100); Mean Platelet Volume 11.4 fl (7.4-10.4); Monocytes Absolute Auto 0.8 K/mm3 (0.1-0.6); Monocytes Percent Auto 12.1 % (2.6-8.5); Neutrophils Absolute Auto 4.8 K/mm3 (1.3-6.7); Neutrophils Percent Auto 69.2 % (45.5-73.1); Platelet Count Result 263 k/mm3 (150-375); Red Blood Count 4.61 M/mm3 (4.6-6.20); Red Cell Distribution Width 14.3 % (11.5-14.5); White Blood Count 6.9 K/mm3 (4.5-10.0)
[2024-07-24 06:36] LABS: Alanine Aminotransferase 28 U/L (6-50); Albumin Level 3.8 g/dL (3.5-5.1); Alkaline Phosphatase 96 U/L (38-126); Anion Gap 8 mmol/L (4-12); Aspartate Amino Transferase 17 U/L (17-59); Bilirubin,Total 0.5 mg/dL (0.2-1.3); Blood Urea Nitrogen 9 mg/dL (9-20); CRP 2.7 mg/dL (<1.0); Calcium 8.4 mg/dL (8.4-10.2); Carbon Dioxide 25 mmol/L (22-30); Chloride 109 mmol/L (98-107); Estimated CRCL calculation 195 ml/min; Estimated Glomerular Filt Rate > 60; Glucose 93 mg/dL (65-110); Potassium 3.8 mmol/L (3.4-5.0); Sodium 142 mmol/L (137-145)
[2024-07-24 07:25] LABS: Erythrocyte Sedimentation Rate 19 mm/hr (0-20)
--- NOTE | 2024-07-24 09:07 | PM.CNGS ---
Assessment and Plan Assessment and plan (1) Acute appendicitis: Code(s): K35.80 - Unspecified acute appendicitis Status: Acute Assessment and Plan: CT evidence of early acute appendicitis. He presented with multiple complaints, including RLQ abdominal pain. He had RLQ tenderness on exam in the ED. His abdominal pain and tenderness has resolved since starting the antibiotics. His WBC count remains normal. We discussed treatment options in detail, including both nonoperative and surgical management. We discussed the risks of recurrence or treatment failure with the option of antibiotic therapy. We also discussed the options of a laparoscopic appendectomy. The patient wishes to avoid surgery and try treating with antibiotics. Will allow him to try a diet today. Continue IV antibiotics. If he is able to tolerate a diet and still appears stable later today, then he could be discharged on oral antibiotics from a surgical standpoint with follow-up in 2 weeks as an outpatient. (2) Psoriatic arthritis: Code(s): L40.50 - Arthropathic psoriasis, unspecified Status: Acute (3) Immunosuppression due to drug therapy: Code(s): D84.821 - Immunodeficiency due to drugs; Z79.899 - Other marine oil terminal superintendent (current) drug therapy Status: Acute Assessment and Plan: Hold Skyrizi in the setting of acute appendicitis (4) Morbid obesity: Code(s): E66.01 - Morbid (severe) obesity due to excess calories Status: Acute Assessment and Plan: BMI 53. Increases his risk for general anesthesia and surgery, as well as increases risk for having to convert to an open procedure. (5) HTN (hypertension): Qualifiers: Hypertension type: primary hypertension Qualified Code(s): I10 - Essential (primary) hypertension Code(s): I10 - Essential (primary) hypertension Status: Acute (6) IBS (irritable bowel syndrome): Code(s): K58.9 - Irritable bowel syndrome, unspecified Status: Acute (7) Iron deficiency anemia: Qualifiers: Iron deficiency anemia type: unspecified iron deficiency Qualified Code(s): D50.9 - Iron deficiency anemia, unspecified Code(s): D50.9 - Iron deficiency anemia, unspecified Status: Acute Plan I have discussed the patient's case and plan of care with Dr. Lizarraga. History of Present Illness Consult details Consult date: 07/24/24 Reason for consult: other (Acute appendicitis) Requesting physician: Lakshmi Blanca PA-C Narrative: This is a 23 year old with PMH of psoriatic arthritis, IBS, morbid obesity, hypertension, anxiety, depression, who we have been asked to see in surgical consultation for acute appendicitis. He presented to the ED yesterday with complaints of right elbow pain, right sided chest pain, nausea and right sided abdominal pain. Patient states that his symptoms started 2 days ago that started with nausea and RLQ pain. Workup in the ED included a negative chest X-ray, negative right elbow x-ray, and CT scan of the abdomen and pelvis that showed mild hepatomegaly and steatosis, gallbladder hydrops due to fasting, finding suspicious for early acute appendicitis, cystitis versus urinary bladder wall thickening from inadequate distention. WBC count normal. UA negative for UTI. Troponin negative. EKG without ischemic changes. He was admitted and started on broad-spectrum IV antibiotics. He is now seen on the medical floor. His abdominal pain has resolved overnight. He is no longer having any chest pain or elbow pain. No complaints at this time, other than hunger and thirst. He is on Skyrizi for psoriatic arthritis, which has been held. WBC count remains normal this morning. Review of Systems Review of Systems: All systems reviewed & are unremarkable except as noted in HPI and below PMFSH Past Medical History Medical History Psoriatic arthritis Irritable bowel syndrome with diarrhea Diarrhea Morbid obesity with BMI of 45.0-49.9, adult HTN (hypertension) Nasal obstruction Nasal folliculitis Anxiety Tinea corporis Psoriasis Morbid obesity Depression Surgical History Surgical History H/O sinus surgery Family History Family History Father Alcohol abuse by father Depression Hypertension Mother Depression Diabetes mellitus Glaucoma Grandparent Depression Thyroid disorder Social History Social History Smoking status: Never smoker Second hand tobacco smoke exposure: No Alcohol intake: never Substance use: never Substance use type: marijuana Other substance usage details: pt stated used daily, stopped four months ago Last use: 07/23/24 Do You Feel Safe in your Home?: Yes Lack of Transportation: No Lack of Food: Never True Current Housing: I Have Housing Concerned About Future Housing: No Difficulty Paying Gas/Electric Bills: No Difficulty Paying for Meds: No Currently Unemployed: No Education: High School Diploma/GED Difficulty w/ Childcare or Family Care: No Living arrangements: with family Occupation/Education: unemployed Gender identity (if verbalized by the patient): Male Spiritual care concerns: No Agree to blood products: Yes Meds Home Medications and Allergies Home Medications ?Medication ?Instructions ?Recorded ?Confirmed ?Type venlafaxine 150 mg 150 mg PO DAILY 12/12/20 07/24/24 History capsule,extended release 24 hr losartan 100 1 tablet PO DAILY #90 tabs 11/04/23 07/24/24 Rx mg-hydrochlorothiazide 12.5 mg tablet amlodipine 10 mg tablet See Rx Instructions .Route 06/04/24 07/24/24 Rx .COMPLEX #90 tabs risankizumab-rzaa 150 mg/mL 150 mg subcut ONCE 06/07/24 07/24/24 History subcutaneous pen injector (Alondra) ondansetron 4 mg disintegrating 4 mg PO Q8H PRN nausea and 07/23/24 Rx tablet vomiting #15 tabs Allergies Allergy/AdvReac Type Severity Reaction Status Date / Time vancomycin Allergy Intermediate SWELLING/ITCHING/ ELIO Verified 07/23/24 17:37 SYNDROME Vital Signs Vital Signs - 24 hr 07/23/24 17:37 07/23/24 19:35 07/23/24 22:55 Temperature 98.1 F Pulse Rate 83 96 82 Respiratory Rate 20 14 17 Blood Pressure 144/96 H 131/66 126/63 Pulse Oximetry 99 97 95 Oxygen Delivery Room Air 07/24/24 00:17 07/24/24 00:57 07/24/24 06:00 Temperature 97.9 F 97.8 F Pulse Rate 78 89 72 Respiratory Rate 12 18 18 Blood Pressure 165/68 H 116/48 L 129/62 Pulse Oximetry 98 97 93 Oxygen Delivery Exam Const: General: comfortable and no acute distress Nutritional Appearance: obese morbidly obese Orientation/consciousness: patient oriented x3 HENMT: Head: normocephalic and atraumatic Ears: hearing grossly normal bilaterally Mouth: Yes moist mucous membranes Eyes: General: appearance normal, both eyes and all related structures Pupils: Equal, round and reactive pupils present Neck: Neck: normal visual inspection and full ROM Resp: Effort & Inspection: no respiratory distress Auscultation: clear to auscultation bilaterally Cardio: Rate: regular rate Rhythm: regular rhythm Peripheral pulses: Peripheral pulses 2+ throughout GI: Inspection: non-distended, Pannus present and obesity GI Palp: Yes Soft to palpation, No Tenderness to palpation present (GI), No Guarding due to palpation present (GI), Yes No hepatosplenomegaly present and No Rebound tenderness present Percussion: Yes normal to percussion Auscultation: normal bowel sounds Skin: General skin exam: normal color Neuro: General: moves all extremities and no focal motor deficits Speech: normal speech Motor exam (neuro): 5/5 motor strength present throughout Extrem: General: normal to inspection and no edema Psych: Mental Status: mental status grossly normal Attitude: cooperative Insight: Good insight present (Psych) Judgement: Good judgement present (Psych) Results Labs 07/24/24 05:47 07/24/24 05:47 Labs: Abnormal lab results 07/23/24 07/23/24 07/23/24 Range/Units 17:48 20:46 21:12 Hgb (14.0-18.0) g/dL Hct (42.0-52.0) % MCHC (32-36) g/dl MPV 10.9 H (7.4-10.4) fl Neut % (Auto) 74.4 H (45.5-73.1) % Lymph % (Auto) 11.4 L (18.3-44.2) % Tucker % (Auto) 10.1 H (2.6-8.5) % Lymph # (Auto) 0.84 L (0.9-3.2) K/mm3 Tucker # (Auto) 0.8 H (0.1-0.6) K/mm3 ESR 57 H (0-20) mm/hr Chloride (98-107) mmol/L Glucose 127 H (65-110) mg/dL C-Reactive Protein 2.7 H (<1.0) mg/dL Ur Specific [place] > 1.045 H (1.001-1.035) Urine Ketones Trace H (Negative) mg/dL 07/24/24 Range/Units 05:47 Hgb 12.3 L (14.0-18.0) g/dL Hct 38.8 L (42.0-52.0) % MCHC 31.7 L (32-36) g/dl MPV 11.4 H (7.4-10.4) fl Neut % (Auto) (45.5-73.1) % Lymph % (Auto) 15.7 L (18.3-44.2) % Tucker % (Auto) 12.1 H (2.6-8.5) % Lymph # (Auto) (0.9-3.2) K/mm3 Tucker # (Auto) 0.8 H (0.1-0.6) K/mm3 ESR (0-20) mm/hr Chloride 109 H (98-107) mmol/L Glucose (65-110) mg/dL C-Reactive Protein 2.7 H (<1.0) mg/dL Ur Specific [place] (1.001-1.035) Urine Ketones (Negative) mg/dL Diabetes panel 07/23/24 07/23/24 07/24/24 Range/Units 17:48 20:46 05:47 Sodium 141 142 (137-145) mmol/L Potassium 3.9 3.8 (3.4-5.0) mmol/L Chloride 105 109 H (98-107) mmol/L Carbon Dioxide 25 25 (22-30) mmol/L BUN 9 D 9 (9-20) mg/dL Creatinine 0.73 0.73 (0.7-1.3) mg/dL Glucose 127 H 93 (65-110) mg/dL Hemoglobin A1c 5.2 (<5.7) % Calcium 9.3 8.4 (8.4-10.2) mg/dL AST 21 17 (17-59) U/L ALT 36 28 (6-50) U/L Alkaline Phosphatase 112 96 (38-126) U/L Total Protein 8.0 7.0 (6.3-8.2) g/dL Albumin 4.6 3.8 (3.5-5.1) g/dL Triglycerides 90 (<150) mg/dL Thyroid panel 07/23/24 Range/Units 20:46 TSH 2.080 (0.465-4.680) uIU/mL Calcium panel 07/23/24 07/24/24 Range/Units 17:48 05:47 Calcium 9.3 8.4 (8.4-10.2) mg/dL Albumin 4.6 3.8 (3.5-5.1) g/dL Pituitary panel 07/23/24 07/23/24 07/24/24 Range/Units 17:48 20:46 05:47 Sodium 141 142 (137-145) mmol/L Potassium 3.9 3.8 (3.4-5.0) mmol/L Chloride 105 109 H (98-107) mmol/L Carbon Dioxide 25 25 (22-30) mmol/L BUN 9 D 9 (9-20) mg/dL Creatinine 0.73 0.73 (0.7-1.3) mg/dL Glucose 127 H 93 (65-110) mg/dL Calcium 9.3 8.4 (8.4-10.2) mg/dL TSH 2.080 (0.465-4.680) uIU/mL Adrenal panel 07/23/24 07/24/24 Range/Units 17:48 05:47 Sodium 141 142 (137-145) mmol/L Potassium 3.9 3.8 (3.4-5.0) mmol/L Chloride 105 109 H (98-107) mmol/L Carbon Dioxide 25 25 (22-30) mmol/L BUN 9 D 9 (9-20) mg/dL Creatinine 0.73 0.73 (0.7-1.3) mg/dL Glucose 127 H 93 (65-110) mg/dL Calcium 9.3 8.4 (8.4-10.2) mg/dL Total Bilirubin 0.6 0.5 (0.2-1.3) mg/dL AST 21 17 (17-59) U/L ALT 36 28 (6-50) U/L Alkaline Phosphatase 112 96 (38-126) U/L Total Protein 8.0 7.0 (6.3-8.2) g/dL Albumin 4.6 3.8 (3.5-5.1) g/dL All other labs normal. Imaging Additional studies: ITS Impressions Chest X-Ray 07/23/24 18:05 IMPRESSION: No focal infiltrate or effusion. Elbow X-Ray 07/23/24 20:32 IMPRESSION: No acute osseous finding in the right elbow. Abdomen/Pelvis CT 07/23/24 21:19 IMPRESSION: Mild hepatomegaly and steatosis. Gallbladder hydrops, probably due to fasting. No inflammatory changes, obstructing stone or biliary dilatation. Findings suspicious for early appendicitis. Cystitis versus urinary bladder wall thickening from inadequate distention.
[2024-07-24] MEDS: VENLAFAXINE HCL XR 75 MG CAP.ER.24H 150 MG PO (09:32)
[2024-07-24] MEDS: hydroCHLOROthiazide 12.5 MG CAPSULE PO (09:33)
[2024-07-24] MEDS: LOSARTAN POTASSIUM 100 MG TABLET PO (09:33)
[2024-07-24] MEDS: amLODIPine BESYLATE 10 MG TABLET PO (09:33)
[2024-07-24] MEDS: ENOXAPARIN 40 MG/0.4 ML SYRINGE SUB-Q (09:33)
[2024-07-24 13:34] VITALS: BP 128/78; PULSE 70; RESP 14; TEMP 36.2; O2SAT 96
--- NOTE | 2024-07-24 14:15 | PCDIET ---
Nutrition consult received for severe obesity. Pt on a regular diet at this time. No questions or concerns about nutrition. Suggested outpatient counseling for weight loss may be appropriate for pt if he is interested.
--- NOTE | 2024-07-24 15:23 | PM.DS ---
DS: Admitting Diagnosis Discharge Date 07/24/24 Admitting Diagnosis abdominal pain Right chest pain Right elbow pain DS: Discharge Diagnosis Discharge Diagnosis (1) Morbid obesity: Code(s): E66.01 - Morbid (severe) obesity due to excess calories Status: Acute (2) Acute appendicitis: Code(s): K35.80 - Unspecified acute appendicitis Status: Acute (3) Psoriasis: Code(s): L40.9 - Psoriasis, unspecified Status: Acute (4) HTN (hypertension): Qualifiers: Hypertension type: primary hypertension Qualified Code(s): I10 - Essential (primary) hypertension Code(s): I10 - Essential (primary) hypertension Status: Acute (5) Anxiety: Code(s): F41.9 - Anxiety disorder, unspecified Status: Acute (6) Depression: Code(s): F32.9 - Major depressive disorder, single episode, unspecified Status: Acute DS: Summary Hospital Course Hospital Course: patient is morbidly obese presented with unspecified acute appendicitis, Ct scan of the abdomen did not any appendicitis, patient was seen by surgery service and does suspect acute appendicitis, patient has early sign of appendicitis, will follow as outpatient, patient pain is resolved, and able to tolerate his diet without any pain. patient mother is present in the room, patient is clinically stable, will discharge today. Time Spent with Patient Time attestation: Total time spent providing and/or coordinating discharge services: DS: Data Data Completed and Pending Labs on day of discharge: Labs from last 24 hours 07/24/24 07/23/24 07/23/24 05:47 21:12 20:46 WBC 6.9 RBC 4.61 Hgb 12.3 L Hct 38.8 L MCV 84.2 MCH 26.7 MCHC 31.7 L RDW 14.3 Plt Count 263 MPV 11.4 H Immature Gran % (Auto) 0.3 Neut % (Auto) 69.2 Lymph % (Auto) 15.7 L [place] % (Auto) 12.1 H Eos % (Auto) 2.3 Baso % (Auto) 0.4 Lymph # (Auto) 1.08 [place] # (Auto) 0.8 H Eos # (Auto) 0.2 Baso # (Auto) 0.0 Abs Immat Gran (auto) 0.02 Absolute Neuts (auto) 4.8 Absolute Nucleated RBC 0.000 Nucleated RBC % 0.0 ESR 19 PT INR APTT Sodium 142 Potassium 3.8 Chloride 109 H Carbon Dioxide 25 Anion Gap 8 BUN 9 Creatinine 0.73 Estim Creat Clear Calc 195 Estimated GFR > 60 Glucose 93 Hemoglobin A1c Calcium 8.4 Total Bilirubin 0.5 AST 17 ALT 28 Alkaline Phosphatase 96 Troponin I < 0.012 C-Reactive Protein 2.7 H 2.7 H Total Protein 7.0 Albumin 3.8 Triglycerides 90 Cholesterol 178 LDL Cholesterol Direct 115 HDL Direct 33 Lipase TSH 2.080 Urine Color Dark yellow Urine Appearance Clear Urine pH 5.5 Ur Specific [place] > 1.045 H Urine Protein Trace Urine Glucose (UA) Negative Urine Ketones Trace H Ur Blood (Man) Negative Urine Nitrate Negative Urine Bilirubin Negative Urine Urobilinogen 1.0 Add Ur Microanalysis Reviewed Leukocyte Esterase Rfl Negative Urine RBC 0-2 Urine WBC 0-5 Ur Squamous Epith Cells Occasional Urine Bacteria None seen Urine Casts 3-5 07/23/24 17:48 WBC 7.4 RBC 5.37 Hgb 14.3 Hct 44.3 MCV 82.5 MCH 26.6 MCHC 32.3 RDW 14.3 Plt Count 303 MPV 10.9 H Immature Gran % (Auto) 0.4 Neut % (Auto) 74.4 H Lymph % (Auto) 11.4 L [place] % (Auto) 10.1 H Eos % (Auto) 3.4 Baso % (Auto) 0.3 Lymph # (Auto) 0.84 L [place] # (Auto) 0.8 H Eos # (Auto) 0.3 Baso # (Auto) 0.0 Abs Immat Gran (auto) 0.03 Absolute Neuts (auto) 5.5 Absolute Nucleated RBC 0.000 Nucleated RBC % 0.0 ESR 57 H PT 13.8 INR 1.0 APTT 30.3 Sodium 141 Potassium 3.9 Chloride 105 Carbon Dioxide 25 Anion Gap 11 BUN 9 D Creatinine 0.73 Estim Creat Clear Calc 196 Estimated GFR > 60 Glucose 127 H Hemoglobin A1c 5.2 Calcium 9.3 Total Bilirubin 0.6 AST 21 ALT 36 Alkaline Phosphatase 112 Troponin I < 0.012 C-Reactive Protein Total Protein 8.0 Albumin 4.6 Triglycerides Cholesterol LDL Cholesterol Direct HDL Direct Lipase 27 TSH Urine Color Urine Appearance Urine pH Ur Specific [place] Urine Protein Urine Glucose (UA) Urine Ketones Ur Blood (Man) Urine Nitrate Urine Bilirubin Urine Urobilinogen Add Ur Microanalysis Leukocyte Esterase Rfl Urine RBC Urine WBC Ur Squamous Epith Cells Urine Bacteria Urine Casts Discharge Plan Discharge Attending physician on discharge: Ledy Dsouza Consulting providers: Margarita Lizarraga; Jluis Lott; Pamela Blake; Lorna Pineda; Lauro Camarena; Cam Chew; Karen Chapman Discharging Clinician: Ledy Dsouza Patient Disposition: Home, Self-Care Activity: as tolerated Diet: heart healthy Discharge Instructions: application support consultant and complete all antibiotics as prescribed. If you develop abdominal pain, fever, vomiting, then return to the ED immediately. Follow-up with the surgeon, Dr. Lizarraga in 2 weeks. Call to schedule an appointment. [phone] patient to follow discharge care instruction from his surgeon and follow up with surgeon as scheduled, patient is instructed to follow up with his primary care provider as soon as possible, patient is instructed if any symptoms worsen to go to nearest ER. Patient Instructions: Antibiotic Form Patient Language: Mohawk Stand Alone Forms: General Discharge Information Follow-up/Referrals: Margarita Lizarraga MD [Physician] - 2 Weeks Luis Tucker APRN [Primary Care Provider] - Discharge Medications: New ondansetron 4 mg tablet,disintegrating 4 mg PO Q8H PRN (Reason: nausea and vomiting) Qty: 15 0RF amoxicillin-pot clavulanate 875-125 mg tablet 1 tablet PO Q12H 14 Days Qty: 28 0RF Continued losartan-hydrochlorothiazide 100-12.5 mg tablet 1 tablet PO DAILY Qty: 90 1RF Skyrizi 150 mg/mL pen injector 150 mg subcut ONCE venlafaxine 150 mg capsule,extended release 24hr 150 mg PO DAILY Patient Comments: pt stated he has not taken in two weeks, going to see MD on , 03/05. amlodipine 10 mg tablet See Rx Instructions .ROUTE .COMPLEX Qty: 90 1RF Dose Instruction: TAKE 1 TABLET BY MOUTH DAILY Rx Instructions: TAKE 1 TABLET BY MOUTH DAILY Date of admission: 07/23/24 23:21 Primary Care Provider: Luis Tucker Admitting Provider: Ledy Dsouza Attending physician on admission: Ledy Dsouza Condition: Stable
== END 2024-07-24 16:00 | disposition home or self-care (01) ==
LOC: ANHED 23:54 → ANH3MEDSUR 07-24 00:09
PROVIDERS: Emergency Medicine; Nurse Practitioner Acute Care; Admitting Provider Family Medicine; Emergency Provider Physician Assistant; PCP Nurse Practitioner; Visit Provider Family Medicine
DX: K35.80 Unspecified acute appendicitis (principal); R07.89 Other chest pain; L40.50 Arthropathic psoriasis, unspecified; I10 Essential (primary) hypertension; F41.9 Anxiety disorder, unspecified; F32.9 Major depressive disorder, single episode, unspecified; D84.821 Immunodeficiency due to drugs; E66.01 Morbid (severe) obesity due to excess calories; Z68.43 Body mass index [BMI] 50.0-59.9, adult; K58.9 Irritable bowel syndrome, unspecified; D50.9 Iron deficiency anemia, unspecified; Z79.899 Other long term (current) drug therapy
CPT/HCPCS: 36415; 71046; 73080; 74177; 80053; 80061; 81001; 83036; 83690; 84443; 84484; 85025; 85610; 85652; 85730; 86140; 93005; 96361; 96365; 96366; 96368; 96372; 96375; 96376; 99285; A9270; G0378; J0696; J1650; J1836; J2270; J2405; J7030; Q9967

== ENCOUNTER 2024-08-01 19:52 | Emergency (ER) | payer BC, SELFPAY ==
--- OUTSIDE RECORDS SUMMARY | 2024-08-01 19:55 | XMS_ITS | Encounter Summary ---
Author Organization [facility] Address [address] [place] [address] Phone Care Team Providers Care Airport Control Operator Name Role Phone Vijay Nolasco Primary Care Provider [phone] Encounter Details Date Type Department Care Team (Late st Contact Info) Description 12/22/2021 Behavior[facility] [address] [place] [address] Mychart, Generic Provider [address] [place] [address] Social History Tobacco Use Types Packs/Day Years [...] to change Department associated with goal: [facility] Steps to achieve goal: [...] to change Department associated with goal: [facility] Steps to achieve goal: [...] documented as of this encounter Care Teams Airport Control Operator Relationship Specialty Start Date End Date Vijay Nolasco DO [address] [address] PCP - General Internal Medicine 07/15/20 documented as of this encounter
--- OUTSIDE RECORDS SUMMARY | 2024-08-01 19:55 | XMS_ITS | Encounter Summary ---
Author Organization [facility] Address [address] [place] [address] Phone Care Team Providers Care Typists Supervisor Name Role Phone Vijay Nolasco Primary Care Provider [phone] Encounter Details Date Type Department Care Team (Late st Contact Info) Description 01/26/2022 [facility] [address] [place] [address] Mychart, Generic Provider [address] [place] [address] Social History Tobacco Use Types Packs/Day Years [...] Ready to change Department associated with goal: [facility] Steps to [...] Ready to change Department associated with goal: [facility] Steps to [...] documented as of this encounter Care Teams Typists Supervisor Relationship Specialty Start Date End Date Vijay Nolasco DO [address] [address] PCP - General Internal Medicine 07/15/20 documented as of this encounter
--- OUTSIDE RECORDS SUMMARY | 2024-08-01 19:55 | XMS_ITS | Encounter Summary ---
Author Organization [facility] Address [address] [place] [address] Phone Care Team Providers Care Digestion Operator Name Role Phone Vijay Nolasco Primary Care Provider [phone] Encounter Details Date Type Department Care Team (Late st Contact Info) Description 10/27/2021 Behavioral Health Patient Survey [facility] [address] [place] [address] Mychart, Generic Provider [address] [place] [address] Social History Tobacco Use Types Packs/Day Years [...] Ready to change Department associated with goal: [facility] Steps to [...] Ready to change Department associated with goal: [facility] Steps to [...] documented as of this encounter Care Teams Digestion Operator Relationship Specialty Start Date End Date Vijay Nolasco DO [address] [address] PCP - General Internal Medicine 07/15/20 documented as of this encounter
--- OUTSIDE RECORDS SUMMARY | 2024-08-01 19:55 | XMS_ITS | Clinical Summary ---
Author Organization [facility] Address [address] [address] [place] [address] Phone Care Team Providers Care Correction Officer [place] [facility] Name Role Phone Vijay Nolasco DO Primary Care Provider [phone] Allergies Active Allergy Reactions Criticality Noted Date [...] Encounters Date Type Department Care Team Description 07/24/2024 External Device Data ST[facility] ABSTRACTION Provider, Abstract 07/24/2024 External Device Data [facility] ABSTRACTION Provider, Abstract 07/10/2024 External Device Data [facility] ABSTRACTION Provider, Abstract 07/04/2024 2:45 PM UI DEVELOPER DESIGNER Telephone Check Up [facility] Oncology and Hematology - [address] [place] [id number] Jai Dietrich MD Iron deficiency anemia, unspecified iron deficiency anemia type (Primary Dx); Anemia due to vitamin B12 deficiency, unspecified B12 deficiency type 07/04/2024 External Device Data [facility] ABSTRACTION Provider, Abstract 07/03/2024 Orders Only [facility] Oncology and Hematology - [address] [place] [address] Jai Dietrich MD 07/03/2024 Abstract [facility] Oncology and Hematology - [address] [place] [address] Jai Dietrich MD 06/06/2024 External [...] Comments Blood Pressure 127/66 03/29/2024 1:56 PM UI DEVELOPER DESIGNER Pulse 78 03/29/2024 1:56 PM UI DEVELOPER DESIGNER Temperature 36.8 C (98.2 F) 03/29/2024 1:56 PM UI DEVELOPER DESIGNER Respiratory Rate 16 03/29/2024 1:56 PM UI DEVELOPER DESIGNER Oxygen Saturation 96% 03/29/2024 1:56 PM UI DEVELOPER DESIGNER Inhaled Oxygen Concentration - - Weight 154.2 kg (340 lb) 03/29/2024 1:56 PM UI DEVELOPER DESIGNER Height 172.7 cm (5' 8 ) 05/02/2023 9:51 AM UI DEVELOPER DESIGNER Body Mass Index 51.7 05/02/2023 9:51 AM UI DEVELOPER DESIGNER Plan of Treatment Upcoming Encounters Date Type Department Care Team (Late st Contact Info) Description 11/01/2024 2:15 PM CDT Office Visit [facility] Oncology and Hematology - [address] [place] [address] Jai Dietrich MD [address] [facility] [address] [place] [address] Health Maintenance Due Date Last Done Comments HPV VACCINES (1 - Male 3-dose series) 08/08/2015 DTAP/TDAP/TD VACCINES (1 - Tdap) 08/08/2019 HEPATITIS B VACCINES (1 of 3 - 19+ 3-dose series) 07/15 INFLUENZA VACCINE (#1) 2023 Procedures Procedure Name Priority Date/Time Associated Diagnosis Comments CBC WITH DIFFERENTIAL Routine 06/25/2024 12:50 PM UI DEVELOPER DESIGNER from Last 3 Months Results * CBC WITH DIFFERENTIAL (06/25/2024 12:50 PM UI DEVELOPER DESIGNER) Blood us Jai Dietrich MD HEMATOLOGY ORDERABLES Final Res ult from Last 3 Months Insurance Care Teams Correction Officer [place] [facility] Relationship Specialty Start Date End Date Vijay Nolasco DO [address] [place] [address] PCP - General Internal Medicine 03/29/24
--- OUTSIDE RECORDS SUMMARY | 2024-08-01 19:55 | XMS_ITS | Clinical Summary ---
Author Organization [facility] Address [address] [place] [address] Phone Care Team Providers Care Grease Monkey Name Role Phone Vijay Nolasco Primary Care Provider [phone] Medications SERTRALINE HCL PO Take by mouth. [...] Ready to change Department associated with goal: [facility] Steps to achieve goal: [...] Ready to change Department associated with goal: [facility] Steps to achieve goal: Patient counseled on healthy coping skills for depression for the duration of 45 min sessions, 1-2 times monthly Patient counseled on setting healthy boundaries for duration of the 45 min sessions, 1-2 times monthly Patient counseled on aspects of healthy self-care for duration of the 45 min sessions, 1-2 times monthly Insurance [facility] Care Teams Grease Monkey Relationship Specialty Start Date End Date Vijay Nolasco DO [address] [facility] [address] [place] [address] PCP - General Internal Medicine 07/15/20
[2024-08-01 19:58] VITALS: BP 156/76; PULSE 86; RESP 15; TEMP 36.7; O2SAT 100
--- NOTE | 2024-08-01 22:02 | PC.NURSE ---
Pt ambulatory to triage desk. Pt states he is going home and does not want to wait to be seen. Pt advised to wait to be seen but pt states he does not want to. pt ripped his arm band off and left without being seen by provider. Pt ambulatory to parking lot with o difficulties. Pt left at 2152.
--- OUTSIDE RECORDS SUMMARY | 2024-08-01 22:11 | XMS_ITS | Clinical Summary ---
Author Organization [facility] Address [address] [place] [address] Phone Care Team Providers Care Branch Service Leader Name Role Phone Vijay Nolasco Primary Care Provider [phone] Medications SERTRALINE HCL PO Take by mouth. [...] Ready to change Department associated with goal: [facility] Steps to achieve [...] Ready to change Department associated with goal: [facility] Steps to achieve goal: Patient counseled on healthy coping skills for depression for the duration of 45 min sessions, 1-2 times monthly Patient counseled on setting healthy boundaries for duration of the 45 min sessions, 1-2 times monthly Patient counseled on aspects of healthy self-care for duration of the 45 min sessions, 1-2 times monthly Insurance [facility] Care Teams Branch Service Leader Relationship Specialty Start Date End Date Vijay Nolasco DO [address] [facility] [address] [place] [address] PCP - General Internal Medicine 07/15/20
--- OUTSIDE RECORDS SUMMARY | 2024-08-01 22:11 | XMS_ITS | Encounter Summary ---
Author Organization [facility] Address [address] [place] [address] Phone Care Team Providers Care Credit Historian Name Role Phone Vijay Nolasco Primary Care Provider [phone] Encounter Details Date Type Department Care Team (Late st Contact Info) Description 10/27/2021 Behavioral Health Patient Survey [facility] Services 1 [place] [address] Mychart, Generic Provider [address] [place] [address] Social History Tobacco Use Types Packs/Day Years [...] Ready to change Department associated with goal: [facility] Steps to achieve [...] Ready to change Department associated with goal: [facility] Steps to achieve [...] documented as of this encounter Care Teams Credit Historian Relationship Specialty Start Date End Date Vijay Nolasco DO [address] [address] PCP - General Internal Medicine 07/15/20 documented as of this encounter
--- OUTSIDE RECORDS SUMMARY | 2024-08-01 22:11 | XMS_ITS | Clinical Summary ---
Author Organization [facility] Address [address] [address] [place] [address] Phone Care Team Providers Care Diesel Engine Mechanic Name Role Phone Vijay Nolasco DO Primary Care Provider [phone] Allergies Active Allergy Reactions Criticality Noted Date [...] STL ABSTRACTION Provider, Abstract 07/04/2024 2:45 PM VICE PRESIDENT OF NEWS Telephone Check Up [facility] Oncology and Hematology - [address] [place] [address] Jai Dietrich MD Iron deficiency anemia, unspecified iron deficiency anemia type (Primary Dx); Anemia due to vitamin B12 deficiency, unspecified B12 deficiency type 07/04/2024 External Device Data STL ABSTRACTION Provider, Abstract 07/03/2024 Orders Only [facility] Oncology and Hematology - [address] [place] [address] Jai Dietrich MD 07/03/2024 Abstract [facility] Oncology and Hematology - [address] [place] [address] Jai Dietrich MD 06/06/2024 External [...] Comments Blood Pressure 127/66 03/29/2024 1:56 PM VICE PRESIDENT OF NEWS Pulse 78 03/29/2024 1:56 PM VICE PRESIDENT OF NEWS Temperature 36.8 C (98.2 F) 03/29/2024 1:56 PM VICE PRESIDENT OF NEWS Respiratory Rate 16 03/29/2024 1:56 PM VICE PRESIDENT OF NEWS Oxygen Saturation 96% 03/29/2024 1:56 PM VICE PRESIDENT OF NEWS Inhaled Oxygen Concentration - - Weight 154.2 kg (340 lb) 03/29/2024 1:56 PM VICE PRESIDENT OF NEWS Height 172.7 cm (5' 8 ) 05/02/2023 9:51 AM VICE PRESIDENT OF NEWS Body Mass Index 51.7 05/02/2023 9:51 AM VICE PRESIDENT OF NEWS Plan of Treatment Upcoming Encounters Date Type Department Care Team (Late st Contact Info) Description 11/01/2024 2:15 PM CDT Office Visit [facility] Oncology and Hematology - [address] [place] [address] Jai Dietrich MD [address] [facility] [address] [place] [address] Health Maintenance Due Date Last Done Comments HPV VACCINES (1 - Male 3-dose series) 08/08/2015 DTAP/TDAP/TD VACCINES (1 - Tdap) 08/08/2019 HEPATITIS B VACCINES (1 of 3 - 19+ 3-dose series) 07/15 INFLUENZA VACCINE (#1) 2023 Procedures Procedure Name Priority Date/Time Associated Diagnosis Comments CBC WITH DIFFERENTIAL Routine 06/25/2024 12:50 PM VICE PRESIDENT OF NEWS from Last 3 Months Results * CBC WITH DIFFERENTIAL (06/25/2024 12:50 PM VICE PRESIDENT OF NEWS) Blood us Jai Dietrich MD HEMATOLOGY ORDERABLES Final Res ult from Last 3 Months Insurance Care Teams Diesel Engine Mechanic Relationship Specialty Start Date End Date Vijay Nolasco DO [address] [facility] [address] [place] [address] PCP - General Internal Medicine 03/29/24
--- OUTSIDE RECORDS SUMMARY | 2024-08-01 22:11 | XMS_ITS | Encounter Summary ---
Author Organization [facility] Address [address] [place] [address] Phone Care Team Providers Care General Foreman Name Role Phone Vijay Nolasco Primary Care Provider [phone] Encounter Details Date Type Department Care Team (Late st Contact Info) Description 01/26/2022 Behavioral Health [facility] 1 [place] [address] Mychart, Generic Provider [address] [place] [address] Social History Tobacco Use Types Packs/Day Years [...] change Department associated with goal: [facility] Steps to achieve [...] change Department associated with goal: [facility] Steps to achieve [...] documented as of this encounter Care Teams General Foreman Relationship Specialty Start Date End Date Vjiay Nolasco DO [address] [address] PCP - General Internal Medicine 07/15/20 documented as of this encounter
--- OUTSIDE RECORDS SUMMARY | 2024-08-01 22:11 | XMS_ITS | Encounter Summary ---
Author Organization [facility] Address [address] [place] [address] Phone Care Team Providers Care City Councilman Name Role Phone Vijay Nolasco Primary Care Provider [phone] Encounter Details Date Type Department Care Team (Late st Contact Info) Description 12/22/2021 Behavioral [facility] 1 [place] [address] Mychart, Generic Provider [address] [place] [address] Social History Tobacco Use Types Packs/Day Years [...] Ready to change Department associated with goal: [facility] Steps to achieve goal: [...] Ready to change Department associated with goal: [facility] Steps to achieve goal: [...] documented as of this encounter Care Teams City Councilman Relationship Specialty Start Date End Date Vijay Nolasco DO [address] [address] PCP - General Internal Medicine 07/15/20 documented as of this encounter
== END 2024-08-01 21:52 | disposition left against medical advice (07) ==
PROVIDERS: PCP Nurse Practitioner
DX: R10.9 Unspecified abdominal pain (principal)
CPT/HCPCS: 99199

== ENCOUNTER 2024-08-08 10:18 | Outpatient (CLI) | payer BC, SELFPAY ==
--- NOTE | ~2024-08-08 | CT_ITS ---
EXAMINATION: CT abdomen pelvis w con DATE: 08/08/2024 10:41 INDICATION: Acute appendicitis with localized peritonitis. TECHNIQUE: Computed tomography (CT) of the abdomen and pelvis was performed with 100 mL Omnipaque 350 intravenous contrast. Automated exposure control and iterative reconstruction technique were employe d. The dose-length product was 1632.87 mGy-cm. COMPARISON: CT abdomen and pelvis 07/23/2024 FINDINGS: The visualized portions of lung bases are clear without pneumonia or pleural effusion. The heart size is normal. No pericardial effusion. There is diffuse hepatic steatosis. The gallbladder, s pleen, pancreas, adrenal glands, and kidneys are normal. There are no dilated loops of bowel. The vincent endix is normal. There are no pathologically enlarged lymph nodes. There is no ascites. There are anisha ign bone islands in the pelvis and femora. There are chronic bilateral L5 pars defects. There is 3 mm anterolisthesis of L5 on S1. There is mild thoracic and lumbar spondylosis. IMPRESSION: 1. Normal appendix. 2. Diffuse hepatic steatosis. Reviewed, dictated and finalized at location A.
--- OUTSIDE RECORDS SUMMARY | 2024-08-08 11:39 | XMS_ITS | Clinical Summary ---
Author Organization [facility] Address [address] [address] [place] [address] Phone Care Team Providers Care Obiee Architect Name Role Phone Vijay Nolasco DO Primary Care Provider [phone] Allergies Active Allergy Reactions Criticality Noted Date [...] Encounters Date Type Department Care Team Description 08/01/2024 External Device Data STL ABSTRACTION Provider, Abstract 07/24/2024 External Device Data STL ABSTRACTION Provider, Abstract 07/24/2024 External Device Data STL ABSTRACTION Provider, Abstract 07/10/2024 External Device Data STL ABSTRACTION Provider, Abstract 07/04/2024 2:45 PM GAS OR WATER METER INSTALLER Telephone Check Up [facility] Oncology and Hematology - [address] [place] [address] Jai Dietrich MD Iron deficiency anemia, unspecified iron deficiency anemia type (Primary Dx); Anemia due to vitamin B12 deficiency, unspecified B12 deficiency type 07/04/2024 External Device Data STL ABSTRACTION Provider, Abstract 07/03/2024 Orders Only [facility] Oncology and Hematology - [address] [place] [address] Jai Dietrich MD 07/03/2024 Abstract [facility] Oncology and Hematology - [address] [place] [address] Jai Dietrich MD 06/06/2024 External Device Data [...] Comments Blood Pressure 127/66 03/29/2024 1:56 PM GAS OR WATER METER INSTALLER Pulse 78 03/29/2024 1:56 PM GAS OR WATER METER INSTALLER Temperature 36.8 C (98.2 F) 03/29/2024 1:56 PM GAS OR WATER METER INSTALLER Respiratory Rate 16 03/29/2024 1:56 PM GAS OR WATER METER INSTALLER Oxygen Saturation 96% 03/29/2024 1:56 PM GAS OR WATER METER INSTALLER Inhaled Oxygen Concentration - - Weight 154.2 kg (340 lb) 03/29/2024 1:56 PM GAS OR WATER METER INSTALLER Height 172.7 cm (5' 8 ) 05/02/2023 9:51 AM GAS OR WATER METER INSTALLER Body Mass Index 51.7 05/02/2023 9:51 AM GAS OR WATER METER INSTALLER Plan of Treatment Upcoming Encounters Date Type Department Care Team (Late st Contact Info) Description 11/01/2024 2:15 PM CDT Office Visit [facility] Oncology and Hematology - [place] [address] [place] [address] Jai Dietrich MD [address] [facility] [address] [place] [address] Health Maintenance Due Date Last Done Comments HPV VACCINES (1 - Male 3-dose series) 08/08/2015 DTAP/TDAP/TD VACCINES (1 - Tdap) 08/08/2019 HEPATITIS B VACCINES (1 of 3 - 19+ 3-dose series) 07/15 INFLUENZA VACCINE (#1) 2023 Procedures Procedure Name Priority Date/Time Associated Diagnosis Comments CBC WITH DIFFERENTIAL Routine 06/25/2024 12:50 PM GAS OR WATER METER INSTALLER from Last 3 Months Results * CBC WITH DIFFERENTIAL (06/25/2024 12:50 PM GAS OR WATER METER INSTALLER) Blood Jai Dietrich MD HEMATOLOGY ORDERABLES Final Res ult from Last [address] [place] [address] PREFERRED Care Teams Obiee Architect Relationship Specialty Start Date End Date Vijay Nolasco DO [address] [facility] [address] [place] [address] PCP - General Internal Medicine 03/29/24
--- OUTSIDE RECORDS SUMMARY | 2024-08-08 11:39 | XMS_ITS | Encounter Summary ---
Author Organization [facility] Address [address] [place] [address] Phone Care Team Providers Care Apparel Designer Name Role Phone Vijay Nolasco Primary Care Provider Encounter Details Date Type Department Care Team (Late st Contact Info) Description 12/22/2021 Behavioral [facility] 1 [place] [address] Mychart, Generic Provider [address] [place] [address] Social History Tobacco Use Types Packs/Day Years [...] Ready to change Department associated with goal: [facility] Steps to achieve goal: [...] Ready to change Department associated with goal: [facility] Steps to achieve goal: [...] documented as of this encounter Care Teams Apparel Designer Relationship Specialty Start Date End Date Vijay Nolasco DO [address] [address] PCP - General Internal Medicine 07/15/20 documented as of this encounter
--- OUTSIDE RECORDS SUMMARY | 2024-08-08 11:39 | XMS_ITS | Encounter Summary ---
Author Organization [facility] Address [address] [place] [address] Phone Care Team Providers Care Geothermal Powerplant Mechanic Name Role Phone Vijay Nolasco Primary Care Provider [phone] Encounter Details Date Type Department Care Team (Late st Contact Info) Description 10/27/2021 Behavioral Health Patient Survey [facility] Behavioral Health Services 1 [place] [address] Mychart, Generic Provider [address] [place] [address] Social History Tobacco Use Types Packs/Day Years [...] documented as of this encounter Care Teams Geothermal Powerplant Mechanic Relationship Specialty Start Date End Date Vijay Nolasco DO [address] [address] PCP - General Internal Medicine 07/15/20 documented as of this encounter
--- OUTSIDE RECORDS SUMMARY | 2024-08-08 11:39 | XMS_ITS | Clinical Summary ---
Author Organization [facility] Address [address] [place] [address] Phone Care Team Providers Care Pan Shaker Name Role Phone Vijay Nolasco Primary Care Provider [phone] Medications SERTRALINE HCL PO Take by mouth. [...] Ready to change Department associated with goal: [facility] Steps to achieve [...] Ready to change Department associated with goal: [facility] Steps to achieve goal: Patient counseled on healthy coping skills for depression for the duration of 45 min sessions, 1-2 times monthly Patient counseled on setting healthy boundaries for duration of the 45 min sessions, 1-2 times monthly Patient counseled on aspects of healthy self-care for duration of the 45 min sessions, 1-2 times monthly Insurance [facility] Care Teams Pan Shaker Relationship Specialty Start Date End Date Vijay Nolasco DO [address] [facility] [address] [place] [address] PCP - General Internal Medicine 07/15/20
--- OUTSIDE RECORDS SUMMARY | 2024-08-08 11:39 | XMS_ITS | Encounter Summary ---
Author Organization [facility] Address [address] [place] [address] Phone Care Team Providers Care Dairy Chemist Name Role Phone Vijay Nolasco Primary Care Provider [phone] Encounter Details Date Type Department Care Team (Late st Contact Info) Description 01/26/2022 Behavioral [facility] 1 [place] [address] Mychart, Generic Provider [address] [place] [address] Social History Tobacco Use Types Packs/Day Years [...] Ready to change Department associated with goal: [facility] Steps to achieve [...] Ready to change Department associated with goal: [facility] Steps to achieve [...] documented as of this encounter Care Teams Dairy Chemist Relationship Specialty Start Date End Date Vijay Nolasco DO [address] [address] PCP - General Internal Medicine 07/15/20 documented as of this encounter
== END 2024-08-08 10:19 | disposition home or self-care (01) ==
PROVIDERS: PCP Nurse Practitioner; Visit Provider Surgery
DX: K35.30 Acute appendicitis with localized peritonitis, without perforation or gangrene (principal); K76.0 Fatty (change of) liver, not elsewhere classified
CPT/HCPCS: 74177; Q9967

== ENCOUNTER 2024-08-10 12:49 | Outpatient (CLI) | payer BC, SELFPAY ==
--- OUTSIDE RECORDS SUMMARY | 2024-08-10 13:01 | XMS_ITS | Clinical Summary ---
Author Organization [facility] Address [address] [place] [address] Phone Care Team Providers Care Strip Polisher Name Role Phone Vijay Nolasco Primary Care Provider [phone] Medications SERTRALINE HCL PO Take by mouth. [...] change Department associated with goal: [facility]IOR[facility] SERVICES Steps [...] change Department associated with goal: [facility] Steps to achieve goal: Patient counseled on healthy coping skills for depression for the duration of 45 min sessions, 1-2 times monthly Patient counseled on setting healthy boundaries for duration of the 45 min sessions, 1-2 times monthly Patient counseled on aspects of healthy self-care for duration of the 45 min sessions, 1-2 times monthly Insurance [facility] Care Teams Strip Polisher Relationship Specialty Start Date End Date Vijay Nolasco DO [address] [facility] [address] [place] [address] PCP - General Internal Medicine 07/15/20
--- OUTSIDE RECORDS SUMMARY | 2024-08-10 13:01 | XMS_ITS | Clinical Summary ---
Author Organization [facility] Address [address] [address] [place] [address] Phone Care Team Providers Care Lumber Press Operator Name Role Phone Vijay Nolasco DO Primary Care Provider [phone] Allergies Active Allergy Reactions Criticality Noted Date [...] STL ABSTRACTION Provider, Abstract 07/04/2024 2:[address] WORKER Telephone Check Up [facility] Oncology and Hematology - [address] [place] [address] Jai Dietrich MD Iron deficiency anemia, unspecified iron deficiency anemia type (Primary Dx); Anemia due to vitamin B12 deficiency, unspecified B12 deficiency type 07/04/2024 External Device Data STL ABSTRACTION Provider, Abstract 07/03/2024 Orders Only [facility] Oncology and Hematology - [address] [place] [address] Jai Dietrich MD 07/03/2024 Abstract [facility] Oncology and Hematology - [address] [place] [address] Jai Dietrich MD 06/06/2024 External Device Data [...] Comments Blood Pressure 127/66 03/29/2024 1:[address] WORKER Pulse 78 03/29/2024 1:[address] WORKER Temperature 36.8 C (98.2 F) 03/29/2024 1:[address] WORKER Respiratory Rate 16 03/29/2024 1:[address] WORKER Oxygen Saturation 96% 03/29/2024 1:[address] WORKER Inhaled Oxygen Concentration - - Weight 154.2 kg (340 lb) 03/29/2024 1:[address] WORKER Height 172.7 cm (5' 8 ) 05/02/2023 9:[address] WORKER Body Mass Index 51.7 05/02/2023 9:[address] WORKER Plan of Treatment Upcoming Encounters Date Type Department Care Team (Late st Contact Info) Description 11/01/2024 2:15 PM CDT Office Visit [facility] Oncology and Hematology - [place] [address] [facility] [address] [place] [address] Jai Dietrich MD [address] [facility] [address] [place] [address] Health Maintenance Due Date Last Done Comments HPV VACCINES (1 - Male 3-dose series) 08/08/2015 DTAP/TDAP/TD VACCINES (1 - Tdap) 08/08/2019 HEPATITIS B VACCINES (1 of 3 - 19+ 3-dose series) 07/15 INFLUENZA VACCINE (#1) 2023 Procedures Procedure Name Priority Date/Time Associated Diagnosis Comments CBC WITH DIFFERENTIAL Routine 06/25/2024 12:[address] WORKER from Last 3 Months Results * CBC WITH DIFFERENTIAL (06/25/2024 12:[address] WORKER) Blood Jai Dietrich MD HEMATOLOGY ORDERABLES Final Res ult from Last [address] [place] [address] PREFERRED Care Teams Lumber Press Operator Relationship Specialty Start Date End Date Vijay Nolasco DO [address] [facility] [address] [place] [address] PCP - General Internal Medicine 03/29/24
--- OUTSIDE RECORDS SUMMARY | 2024-08-10 13:01 | XMS_ITS | Encounter Summary ---
Author Organization [facility] Address [address] [place] [address] Phone Care Team Providers Care Inside Sales Advisor Name Role Phone Vijay Nolasco Primary Care Provider [phone] Encounter Details Date Type Department Care Team (Late st Contact Info) Description 10/27/2021 Behavioral Health Patient Survey [facility]al [facility] Services 1 [place] [address] Mychart, Generic Provider [address] [place] [address] Social History Tobacco Use Types Packs/Day Years [...] to change Department associated with goal: [facility] BEHAVIORAL HEALTH SERVICES Steps to achieve goal: [...] to change Department associated with goal: [facility] BEHAVIORAL HEALTH SERVICES Steps to achieve goal: [...] documented as of this encounter Care Teams Inside Sales Advisor Relationship Specialty Start Date End Date Vijay Nolasco DO [address] [address] PCP - General Internal Medicine 07/15/20 documented as of this encounter
--- OUTSIDE RECORDS SUMMARY | 2024-08-10 13:01 | XMS_ITS | Encounter Summary ---
Author Organization [facility] Address [address] [place] [place] [address] Phone Care Team Providers Care Local Bulk Driver Name Role Phone Vijay Nolasco Primary Care Provider [phone] Encounter Details Date Type Department Care Team (Late st Contact Info) Description 01/26/2022 [facility] 1 [place] [address] Mychart, Generic Provider [address] [place] [address] Social History Tobacco Use Types Packs/Day Years [...] documented as of this encounter Care Teams Local Bulk Driver Relationship Specialty Start Date End Date Vijay Nolasco DO [address] [address] PCP - General Internal Medicine 07/15/20 documented as of this encounter
--- OUTSIDE RECORDS SUMMARY | 2024-08-10 13:01 | XMS_ITS | Encounter Summary ---
Author Organization [facility] Address [address] [place] [address] Phone Care Team Providers Care E/M Engineer Name Role Phone Vijay Nolasco Primary Care Provider [phone] Encounter Details Date Type Department Care Team (Late st Contact Info) Description 12/22/2021 [facility] 1 [place] [address] Mychart, Generic Provider [address] [place] [address] Social History Tobacco Use Types Packs/Day Years [...] to change Department associated with goal: [facility] BEHAVIORAL HEALTH SERVICES Steps to achieve [...] to change Department associated with goal: [facility] BEHAVIORAL HEALTH SERVICES Steps to achieve [...] documented as of this encounter Care Teams E/M Engineer Relationship Specialty Start Date End Date Vijay Nolasco DO [address] [address] PCP - General Internal Medicine 07/15/20 documented as of this encounter
== END 2024-08-10 12:50 | disposition home or self-care (01) ==
PROVIDERS: PCP Nurse Practitioner; Visit Provider Surgery
DX: Z01.812 Encounter for preprocedural laboratory examination (principal); K35.80 Unspecified acute appendicitis
CPT/HCPCS: 36415; 86850; 86900; 86901

== ENCOUNTER 2024-08-16 01:39 | Day surgery (SDC) | payer BC, SELFPAY ==
[2024-08-10 10:19] VITALS: BMI 52.0
--- NOTE | 2024-08-10 10:21 | PC.NURSE ---
Report to the Outpatient Waiting Room, entrance under the green pavilion located off [facility], at time _0800_ on date _[id number]_. Planned Procedure Time: _1000_.? Time changes happen often and if your time is changed the preop area will call you the afternoon before. - You and your visitor will be asked to self-screen and do not enter if you have any COVID symptoms. Please call surgeon if you need to reschedule. - A mask is optional within the hospital at this time. Patients may have clear liquids (water, carbonated beverages, clear teas, apple juice) until 3 hours prior to surgery with a maximum of 20 ounces. - No food from midnight until time of surgery and no smoking, or chewing tobacco (or any form of nicotine). No chewing gum, candy or mints. Take only the following medications with a SIP of water on the morning of surgery: ___None___ DO NOT STOP ANY OF YOUR OTHER PRESCRIPTION MEDICATIONS PRIOR TO SURGERY EXCEPT THE FOLLOWING Hold all vitamins and supplements for 3 days per anesthesiologist. Medications to discontinue per physician Date to take last lpya__[id number]____ Please no make-up, nail serbian, hairspray, perfume, deodorant, or body powder the day of surgery.? No jewelry (including any body piercings) or valuables the day of surgery, leave them at home.? Please take a shower or bath the night before, or the morning of, surgery with an antibacterial soap.? Wear comfortable, loose fitting clothing.? - Jewelry must be removed prior to entering the operating room.? Rings and piercings that are not removed may be cut off. - The hospital will not accept responsibility for valuables.? - Please leave all valuables, including medications, at home the day of surgery. If you are going home after surgery, a licensed form setter/driver must drive you home.? - NO public transportation without another adult if you receive anesthesia. - We recommend that an adult stay with you for 24 hours following discharge. - We also recommend that you do not drive, make important decision, drink alcoholic beverages, or take any drugs that were not prescribed by your health care provider for at least 24 hours after your discharge time. Follow any additional instructions given to you from your surgeon. Telephone instructions given to __Drew__and asked if any additional questions and then verbalized understanding. Patient advised to call surgeon office or pre surgery nurse liaison [phone] if any additional questions.
[2024-08-16] VITALS (13 sets, daily range): BP systolic 120–169; BP diastolic 66–100; PULSE 84–111; RESP 16–26; TEMP 36.8–37; O2SAT 89–98; BMI 50.7
--- OUTSIDE RECORDS SUMMARY | 2024-08-16 01:52 | XMS_ITS | Clinical Summary ---
[facility] Address [address] [place] [address] Phone Care Team Providers Care Chief Controller Tower Name Role Phone Vijay Nolasco Primary Care Provider [phone] Medications SERTRALINE HCL PO Take by mouth. [...] Ready to change Department associated with goal: [facility] BEHAVIORAL HEALTH SERVICES Steps to [...] Ready to change Department associated with goal: [facility] BEHAVIORAL HEALTH SERVICES Steps to achieve goal: Patient counseled on healthy coping skills for depression for the duration of 45 min sessions, 1-2 times monthly Patient counseled on setting healthy boundaries for duration of the 45 min sessions, 1-2 times monthly Patient counseled on aspects of healthy self-care for duration of the 45 min sessions, 1-2 times monthly Insurance [facility] Care Teams Chief Controller Tower Relationship Specialty Start Date End Date Vijay Nolasco DO [address] [facility] [address] [place] [address] PCP - General Internal Medicine 07/15/20
--- OUTSIDE RECORDS SUMMARY | 2024-08-16 01:52 | XMS_ITS | Encounter Summary ---
Author Organization [facility] Address [address] [place] [address] Phone Care Team Providers Care Teacher Ballet Name Role Phone Vijay Nolasco Primary Care Provider [phone] Encounter Details Date Type Department Care Team (Late st Contact Info) Description 01/26/2022 [facility] 1 [place] [address] Mychart, Generic Provider [address] [place] [address] Social History Tobacco Use Types Packs/Day Years [...] change Department associated with goal: [facility] BEHAVIORAL HEALTH SERVICES Steps [...] change Department associated with goal: [facility] BEHAVIORAL HEALTH SERVICES Steps [...] documented as of this encounter Care Teams Teacher Ballet Relationship Specialty Start Date End Date Vijay Nolasco DO [address] [address] PCP - General Internal Medicine 07/15/20 documented as of this encounter
--- OUTSIDE RECORDS SUMMARY | 2024-08-16 01:52 | XMS_ITS | Encounter Summary ---
Author Organization [facility] Address [address] [place] [address] Phone Care Team Providers Care Director Of Maintenance Name Role Phone Vijay Nolasco Primary Care Provider [phone] Encounter Details Date Type Department Care Team (Late st Contact Info) Description 10/27/2021 Behavioral Health Patient Survey [facility] Behavioral Health Services 1 [place] [address] Mychart, Generic Provider [address] [place] [address] Social History Tobacco Use Types Packs/Day Years [...] to change Department associated with goal: [facility] BEHAVIORAL HEALTH SERVICES Steps to achieve [...] to change Department associated with goal: [facility] BEHAVIORAL HEALTH SERVICES Steps to achieve [...] documented as of this encounter Care Teams Director Of Maintenance Relationship Specialty Start Date End Date Vijay Nolasco DO [address] [address] PCP - General Internal Medicine 07/15/20 documented as of this encounter
--- OUTSIDE RECORDS SUMMARY | 2024-08-16 01:52 | XMS_ITS | Clinical Summary ---
Author Organization [facility] Address [address] [address] [place] [address] Phone Care Team Providers Care Mash Tub Cooker Name Role Phone Vijay Nolasco DO Primary Care Provider [phone] Allergies Active Allergy Reactions Criticality Noted Date [...] STL ABSTRACTION Provider, Abstract 07/04/2024 2:45 PM AIR CONDITIONER INSTALLER HELPER Telephone Check Up [facility] Oncology and Hematology - [address] [place] [address] Jai Dietrich MD Iron deficiency anemia, unspecified iron deficiency anemia type (Primary Dx); Anemia due to vitamin B12 deficiency, unspecified B12 deficiency type 07/04/2024 External Device Data STL ABSTRACTION Provider, Abstract 07/03/2024 Orders Only [facility] Oncology and Hematology - [place] [address] [place] [phone] Jai Dietrich MD 07/03/2024 Abstract [facility] Oncology and Hematology - [place] [address] [place] [address] Jai Dietrich MD 06/06/2024 External Device Data [...] Comments Blood Pressure 127/66 03/29/2024 1:56 PM AIR CONDITIONER INSTALLER HELPER Pulse 78 03/29/2024 1:56 PM AIR CONDITIONER INSTALLER HELPER Temperature 36.8 C (98.2 F) 03/29/2024 1:56 PM AIR CONDITIONER INSTALLER HELPER Respiratory Rate 16 03/29/2024 1:56 PM AIR CONDITIONER INSTALLER HELPER Oxygen Saturation 96% 03/29/2024 1:56 PM AIR CONDITIONER INSTALLER HELPER Inhaled Oxygen Concentration - - Weight 154.2 kg (340 lb) 03/29/2024 1:56 PM AIR CONDITIONER INSTALLER HELPER Height 172.7 cm (5' 8 ) 05/02/2023 9:51 AM AIR CONDITIONER INSTALLER HELPER Body Mass Index 51.7 05/02/2023 9:51 AM AIR CONDITIONER INSTALLER HELPER Plan of Treatment Upcoming Encounters Date Type Department Care Team (Late st Contact Info) Description 11/01/2024 2:15 PM CDT Office Visit [facility] Oncology and Hematology - [place] [address] [facility] [address] [place] [address] Jai Dietrich MD [address] [facility] [address] [place] [address] Health Maintenance Due Date Last Done Comments HPV VACCINES (1 - Male 3-dose series) 08/08/2015 DTAP/TDAP/TD VACCINES (1 - Tdap) 08/08/2019 HEPATITIS B VACCINES (1 of 3 - 19+ 3-dose series) 07/15 INFLUENZA VACCINE (#1) 2023 Procedures Procedure Name Priority Date/Time Associated Diagnosis Comments CBC WITH DIFFERENTIAL Routine 06/25/2024 12:50 PM AIR CONDITIONER INSTALLER HELPER from Last 3 Months Results * CBC WITH DIFFERENTIAL (06/25/2024 12:50 PM AIR CONDITIONER INSTALLER HELPER) Blood Jai Dietrich MD HEMATOLOGY ORDERABLES Final Res ult from Last [address] [place] [place] [address] PREFERRED Care Teams Mash Tub Cooker Relationship Specialty Start Date End Date Vijay Nolasco DO [address] [facility] [address] [place] [id number] PCP - General Internal Medicine 03/29/24
--- OUTSIDE RECORDS SUMMARY | 2024-08-16 01:52 | XMS_ITS | Encounter Summary ---
Author Organization [facility] Address [address] [place] [address] Phone Care Team Providers Care Supervisor Underwriting Clerks Name Role Phone Vijay Nolasco Primary Care Provider [phone] Encounter Details Date Type Department Care Team (Late st Contact Info) Description 12/22/2021 [facility] 1 [place] [address] Mychart, Generic Provider [address] [place] [address] Social History Tobacco Use Types Packs/Day Years [...] Ready to change Department associated with goal: [facility] BE[facility]AVIORAL HE[facility] Steps to achieve [...] Ready to change Department associated with goal: [facility] BE[facility]AVIORAL [facility] SERVICES Steps to achieve [...] documented as of this encounter Care Teams Supervisor Underwriting Clerks Relationship Specialty Start Date End Date Vijay Nolasco DO [address] [address] PCP - General Internal Medicine 07/15/20 documented as of this encounter
--- NOTE | 2024-08-16 09:46 | WPDANESEPPF ---
Anes - Initial Pre Proc Eval Procedure: Operation Date: 08/16/24 12:00 Proposed Procedures p Robotic Assisted Appendectomy - Margarita Lizarraga MD Date/Time: 08/16/24 09:46 Surgeon: Margarita Lizarraga MD Pre Op Diagnosis: Accute Appendicitis Patient Data Age: 24 Gender: M Height: 1.73 m Weight: 155.3 kg Allergies Allergy/AdvReac Type Severity Reaction Status Date / Time vancomycin Allergy Intermediate SWELLING/ITCHING/ ELIO Verified 08/16/24 09:57 SYNDROME Home Medications ?Medication ?Instructions ?Recorded ?Confirmed ?Type venlafaxine 150 mg 150 mg PO DAILY 12/12/20 08/10/24 History capsule,extended release 24 hr amlodipine 10 mg tablet See Rx Instructions .Route 06/04/24 08/10/24 Rx .COMPLEX #90 tabs risankizumab-rzaa 150 mg/mL 150 mg subcut ONCE 06/07/24 08/10/24 History subcutaneous pen injector (Skyrizi) losartan 100 1 tablet PO DAILY #90 tabs 08/07/24 08/10/24 Rx mg-hydrochlorothiazide 12.5 mg tablet cyanocobalamin (vitamin B-12) 100 100 mcg PO HS 08/10/24 08/10/24 History mcg tablet (Vitamin B-12) Patient hx anesthesia problems: none Family hx anesthesia problems: none Results Review: All pre-operative results and documents have been reviewed as part of the pre-operative evaluation. [facility] Past Medical History Medical History (Updated 08/08/24 @ 09:08 by Sagrario Vazquez [facility]) Psoriatic arthritis Irritable bowel syndrome with diarrhea Diarrhea Morbid obesity with BMI of 45.0-49.9, adult HTN (hypertension) Nasal obstruction Nasal folliculitis Anxiety Tinea corporis Psoriasis Morbid obesity Depression Surgical History Surgical History H/O sinus surgery Family History Family History Father Alcohol abuse by father Depression Hypertension Mother Depression Diabetes mellitus Glaucoma Grandparent Depression Thyroid disorder Social History Social History Smoking status: Never smoker Second hand tobacco smoke exposure: No Alcohol intake: never Substance use: never Substance use type: marijuana Other substance usage details: Once in awhile Last use: 07/23/24 Do You Feel Safe in your Home?: Yes Lack of Transportation: No Lack of Food: Never True Current Housing: I Have Housing Concerned About Future Housing: No Difficulty Paying Gas/Electric Bills: No Difficulty Paying for Meds: No Currently Unemployed: No Education: High School Diploma/GED Difficulty w/ Childcare or Family Care: No Living arrangements: with family Occupation/Education: unemployed Gender identity (if verbalized by the patient): Male Spiritual care concerns: No Agree to blood products: Yes Anes - Eval Final PreProcedure Day of Procedure 08/16/24 09:46 Patient weight: super morbidly obese Heart: regular rate and rhythm Lungs: clear to auscultation Airway: Mallampati scale class II Neurological: alert and oriented Last oral intake: >/= 8 hours ASA classification: III Emergent: no Anesthetic plan: proceed Anesthesia type and monitoring: general ETT and standard monitoring Results Review: All pre-operative results and documents have been reviewed as part of the pre-operative evaluation. Informed Consent: The patient's anesthetic plan and its attendant risks and benefits were discussed with the patient/family/POA. Questions were solicited and answers provided to the satisfaction of the patient/family/POA.
--- NOTE | 2024-08-16 09:52 | WPDHPUPDATE1 ---
History and Physical Update Update Date/Time: 08/16/24 09:52 History and Physical has been reviewed, including an updated exam of the patient. There are NO changes in the patient's condition. Risks, benefits, and alternatives have been discussed and questions answered. Patient agrees to proceed with procedure.
[2024-08-16] MEDS: ACETAMINOPHEN 500 MG TABLET 1000 MG PO (10:01)
[2024-08-16] MEDS: KETOROLAC 15 MG/ML VIAL (*BKC) IV PUSH (10:01)
[2024-08-16] MEDS: LACTATED RINGERS 1,000 ML 30 ML IV CONT ×2 (10:04→11:30)
[2024-08-16] MEDS: metroNIDAZOLE 500 MG/ISO 100ML 500 MG/100 ML BAG 100 MG IVPB (10:07)
[2024-08-16] MEDS: ceFAZolin 3 GM/D5W 100 ML 100 ML IVPB (10:07)
[2024-08-16] MEDS: BUPIVACAINE/EPINEPHRINE 0.5% 30 ML VIAL INFILTRATE (10:28)
--- NOTE | 2024-08-16 11:21 | W.PM.PROC2 ---
Procedure Note - Detailed Date of Procedure 08/16/24 Pre-op Diagnosis chronic appendicitis Post-op Diagnosis Same Procedure Performed robotic assisted appendectomy, lysis of adhesions Surgeon Margarita Lizarraga MD Anesthesia General and Local Indications 24-year-old male initially presenting to the emergency department with acute appendicitis treated conservatively with antibiotics. The patient presented to the office complaining of persistent pain in the right lower quadrant. Findings Chronic appendicitis Description of Procedure The patient was taken to the operating room and placed in the supine position. After adequate induction of general anesthesia, the patient was prepped and draped in the normal sterile fashion. A time-out was then done to verify the patient's identity, as well as the procedure being performed. I began by making an 8 mm incision in the left mid abdomen. I then placed a Veress needle into the peritoneal cavity and CO2 gas was insufflated. After adequate pneumoperitoneum was achieved, a 8 mm Optiview trocar was placed under direct visualization. I then placed the laparoscopic through this trocar site and there was noted to be some midline adhesions. I was able to place a further 8 mm port in the left upper abdomen. An additional 12 mm port was placed in the left lower abdomen. The [employer] Nlis robot was then docked to these 3 port sites. I then was able to take down these midline adhesions using the Bovie cautery and scissors. This took approximately 15 minutes. Once these adhesions were taken down, I was able to identify the cecum. The cecum was retracted to allow exposure of the appendix. The appendix was noted to be dilated and injected. There was no obvious perforation noted within the appendix. I was able to dissect the appendix from its adhesions to the terminal ileum. I was now able to grasp the tip of the appendix and retracted both anterior and lateral. This allowed me to expose the base of the appendix with the cecum. Using a 60 mm surefire stapler, I was able to transect the appendix at the base of the appendix. Staple load allowed me to come across the mesoappendix as well. Once the appendiceal specimen was completely detached, I examined the staple line which was noted to be intact and hemostatic. An Endopouch was then placed through the 12 mm port site and the appendiceal specimen was subsequently placed in the pouch and removed. Re-examining the right lower quadrant, the staple line was again noted to be intact and hemostatic. No other pathology was noted. I then closed the 12 mm port site with a Adrián cone under direct visualization with an 0 Vicryl stitch. The abdomen was then desufflated and all trocars were removed. All incisions were closed with 4-0 Monocryl subcuticular suture. Dermabond was placed on all wounds. The patient tolerated the procedure well and was extubated postoperatively. He will be transferred to recovery room in stable condition. Estimated Blood Loss 25 Pathology Yes Complications No immediate complications Condition Stable Disposition PACU [facility] Billing Surgery - Charge Forward: Surgery Billing
[2024-08-16] MEDS: ONDANSETRON INJ 4 MG/2 ML VIAL IV PUSH (12:20)
[2024-08-16] MEDS: diphenhydrAMINE HCl INJ 50 MG/ML VIAL 25 MG IV PUSH ×2 (13:33→13:45)
[2024-08-16] MEDS: SCOPOLAMINE 1 MG PATCH 1 PATCH TRANSDERM (13:34)
[2024-08-16] MEDS: fentaNYL CITRATE INJ (*CRX) 100 MCG/2 ML VIAL 25 MCG IV PUSH (13:58)
== END 2024-08-16 14:46 | disposition home or self-care (01) ==
PROVIDERS: PCP Nurse Practitioner; Visit Provider Surgery
PROC: 0DTJ4ZZ Resection of Appendix, Percutaneous Endoscopic Approach (ICD-10-PCS; CPT 44970; principal; 2024-08-16 12:00)
DX: K36 Other appendicitis (principal); K38.8 Other specified diseases of appendix; K66.0 Peritoneal adhesions (postprocedural) (postinfection); E66.01 Morbid (severe) obesity due to excess calories; Z68.43 Body mass index [BMI] 50.0-59.9, adult
CPT/HCPCS: 44970; S2900; 88304; A9270; J0330; J0690; J1100; J1200; J1836; J1885; J2250; J2405; J2704; J3010; J7030; J7120

== ENCOUNTER 2024-08-20 16:57 | Emergency (ER) | payer BC, SELFPAY ==
--- NOTE | ~2024-08-20 | CT_ITS ---
CLINICAL INDICATION: Unable to tolerate PO COMPARISON: 08/08/2024. TECHNIQUE: Multiple contiguous axial images of the abdomen and pelvis were performed following the ad ministration of with 100 mL Omnipaque-350 intravenous contrast The dose-length product (DLP) was 1700.77 mGy-cm. Automated exposure control and iterative reconstruction technique were employed. FINDINGS/OBSERVATIONS: Visualized lower thorax: The bilateral lung bases are clear. The heart is of normal size, without pericardial effusion. Small hiatal hernia is present. Liver: The liver demonstrates homogeneous enhancement and is enlarged measuring 21 cm in longitudinal dimens ion. Gallbladder and biliary system: The gallbladder is only minimally distended, and otherwise unremarkable. Pancreas: The pancreas demonstrates fatty atrophy, and is otherwise unremarkable. Spleen: The spleen enhances homogeneously and is borderline enlarged measuring 12 cm in longitudinal dimensio n. Kidneys: The bilateral kidneys enhance symmetrically without hydronephrosis or renal calculi. Adrenal glands: Unremarkable. Gastrointestinal tract: Unremarkable. Appendix: Surgically absent. Vasculature: Unremarkable. Lymph nodes: No pathologically enlarged or morphologically suspicious lymph nodes within the retroperitoneum or at the root of the mesentery. Pelvic structures: The bladder is only minimally distended, and demonstrates mural thickening. The prostate gland is not enlarged. Body wall and musculoskeletal: Postoperative change along the anterior abdominal wall, to the left of midline, consistent with patie nt's history. No significant degenerative disease within the lower thoracic or lumbosacral spine. IMPRESSION: Hepatosplenomegaly. Postoperative change. No acute pathology is appreciated within the abdomen or pelvis, detailed above. Reviewed, dictated and finalized at location A.
[2024-08-20 17:00] VITALS: BP 162/72; PULSE 103; RESP 16; TEMP 36.8; O2SAT 95
--- NOTE | 2024-08-20 17:03 | ED.NAVMDI ---
HPI - Nausea/Vomiting/Diarrhea General Chief complaint: Nausea/Vomiting/Diarrhea <Ashley Garza PA-C - Last Filed: 08/21/24 09:36> Stated complaint: Surg -Vomiting, unable to eat <Ashley Garza PA-C - Last Filed: 08/21/24 09:36> Time Seen by Provider: 08/20/24 17:03 <Ashley Garza PA-C - Last Filed: 08/21/24 09:36> Focused HPI: This is a 24 year old male that presents to the ER for abdominal pain, nausea and vomiting. Reports recent appendectomy with Dr. Lizarraga 08/16. Reports he has not been able to keep anything down today. Reports chills. GENERAL: Uncomfortable, well-nourished, and in no acute distress. HEAD: Normocephalic, atraumatic. CHEST: Clear to auscultation. ?No respiratory distress. HEART: Regular rate and rhythm.? NEURO: ?Alert and oriented x3. Patient screened in triage and initial orders placed.? ?Additional care and disposition to be based upon?diagnostic testing and treatment. <Ashley Garza PA-C - Last Filed: 08/21/24 09:36> Related Data Home medications: Home Medications ?Medication ?Instructions ?Recorded ?Confirmed ?Last Taken ?Type venlafaxine 150 mg 150 mg PO DAILY 12/12/20 08/16/24 08/15/24 History capsule,extended release 24 hr risankizumab-rzaa 150 mg/mL 150 mg subcut ONCE 06/07/24 08/10/24 Unknown History subcutaneous pen injector (Skyrizi) cyanocobalamin (vitamin B-12) 100 100 mcg PO HS 08/10/24 08/16/24 08/13/24 History mcg tablet (Vitamin B-12) <CHRISTIAN Coppola Last Filed: 08/21/24 09:36> Allergies/Adverse reactions: Allergies Allergy/AdvReac Type Severity Reaction Status Date / Time vancomycin Allergy Intermediate SWELLING/ITCHING/ ELIO Verified 08/16/24 09:57 SYNDROME <CHRISTIAN Coppola Last Filed: 08/21/24 09:36> Review of Systems Review of Systems: All systems reviewed & are unremarkable except as noted in HPI and below <Ashley Garza PA-C - Last Filed: 08/21/24 09:36> [facility] Past Medical History Medical History: Medical History (Updated 08/21/24 @ 09:36 by Ashley Garza PA-C) Psoriatic arthritis Irritable bowel syndrome with diarrhea Diarrhea Morbid obesity with BMI of 45.0-49.9, adult HTN (hypertension) Nasal obstruction Nasal folliculitis Anxiety Tinea corporis Psoriasis Morbid obesity Depression <Ashley Garza PA-C - Last Filed: 08/21/24 09:36> Surgical History Surgical History: Surgical History H/O sinus surgery <Ashley Garza PA-C - Last Filed: 08/21/24 09:36> Family History Family History: Family History Father Alcohol abuse by father Depression Hypertension Mother Depression Diabetes mellitus Glaucoma Grandparent Depression Thyroid disorder <Ashley Garza PA-C - Last Filed: 08/21/24 09:36> Social History Social History: Social History Smoking status: Never smoker Second hand tobacco smoke exposure: No Alcohol intake: never Substance use: never Substance use type: marijuana Other substance usage details: Once in awhile Last use: 07/23/24 Do You Feel Safe in your Home?: Yes Lack of Transportation: No Lack of Food: Never True Current Housing: I Have Housing Concerned About Future Housing: No Difficulty Paying Gas/Electric Bills: No Difficulty Paying for Meds: No Currently Unemployed: No Education: High School Diploma/GED Difficulty w/ Childcare or Family Care: No Living arrangements: with family Occupation/Education: unemployed Gender identity (if verbalized by the patient): Male Spiritual care concerns: No Agree to blood products: Yes <Ashley Garza PA-C - Last Filed: 08/21/24 09:36> Course Course Emergency Course: Notified patient and mother about the lab work, CT findings. I discussed with Dr. Lizarraga patient can be discharged home and follow up in the office. <Ashley Garza PA-C - Last Filed: 08/21/24 09:36> Notified patient and her mother about the lab work, CT findings. I discussed with Dr. Guy patient can be discharged home and follow up in the office. <Markos Dash MD - Last Filed: 08/20/24 21:57> Vital Signs Vital signs: Vital Signs Temperature 98.3 F 08/20/24 17:00 Pulse Rate 103 H 08/20/24 17:00 Respiratory Rate 16 08/20/24 17:00 Blood Pressure 162/72 H 08/20/24 17:00 Pulse Oximetry 95 08/20/24 17:00 Oxygen Delivery Room Air 08/20/24 17:00 Temperature 98.3 F 08/20/24 17:00 Pulse Rate 79 08/20/24 22:04 Respiratory Rate 19 08/20/24 22:04 Blood Pressure 148/80 H 08/20/24 22:04 Pulse Oximetry 96 08/20/24 22:04 Oxygen Delivery Room Air 08/20/24 20:16 <Ashley Garza PA-C - Last Filed: 08/21/24 09:36> Vital Signs Temperature 98.3 F 08/20/24 17:00 Pulse Rate 103 H 08/20/24 17:00 Respiratory Rate 16 08/20/24 17:00 Blood Pressure 162/72 H 08/20/24 17:00 Pulse Oximetry 95 08/20/24 17:00 Oxygen Delivery Room Air 08/20/24 17:00 Temperature 98.3 F 08/20/24 17:00 Pulse Rate 79 08/20/24 22:04 Respiratory Rate 19 08/20/24 22:04 Blood Pressure 148/80 H 08/20/24 22:04 Pulse Oximetry 96 08/20/24 22:04 Oxygen Delivery Room Air 08/20/24 20:16 <Markos Dash MD - Last Filed: 08/20/24 21:57> MDM - Nausea/Vomiting/Diarrhea Differential Diagnosis Differential diagnosis: Likely gastroenteritis and dehydration <Markos Dash MD - Last Filed: 08/20/24 21:57> Medical Records Attestation: I reviewed the patient's medical records. <Markos Dash MD - Last Filed: 08/20/24 21:57> Lab Data Attestation: I reviewed the patient's lab results. <Markos Dash MD - Last Filed: 08/20/24 21:57> Result diagrams: 08/20/24 17:38 08/20/24 17:38 <Ashley Garza PA-C - Last Filed: 08/21/24 09:36> Labs: Lab Results 08/20/24 08/20/24 Range/Units 17:38 20:19 WBC 12.6 H (4.5-10.0) K/mm3 RBC 5.56 (4.6-6.20) M/mm3 Hgb 14.9 (14.0-18.0) g/dL Hct 46.0 (42.0-52.0) % MCV 82.7 (80-100) fl MCH 26.8 (26-34) pg MCHC 32.4 (32-36) g/dl RDW 13.6 (11.5-14.5) % Plt Count 330 (150-375) k/mm3 MPV 11.3 H (7.4-10.4) fl Immature Gran % (Auto) 0.6 H (0-0.5) % Neut % (Auto) 85.0 H (45.5-73.1) % Lymph % (Auto) 6.6 L (18.3-44.2) % Am[place] % (Auto) 6.5 (2.6-8.5) % Eos % (Auto) 1.0 (0-4.4) % Baso % (Auto) 0.3 (0.2-1.2) % Lymph # (Auto) 0.83 L (0.9-3.2) K/mm3 [place] # (Auto) 0.8 H (0.1-0.6) K/mm3 Eos # (Auto) 0.1 (0-0.3) K/mm3 Baso # (Auto) 0.0 (0.0-0.1) K/mm3 Abs Immat Gran (auto) 0.08 H (0.00-0.031) K/mm3 Absolute Neuts (auto) 10.7 H (1.3-6.7) K/mm3 Absolute Nucleated RBC 0.000 (0.0-0.012) K/mm3 Nucleated RBC % 0.0 (0.0-0.2) % Sodium 140 (137-145) mmol/L Potassium 3.8 (3.4-5.0) mmol/L Chloride 103 (98-107) mmol/L Carbon Dioxide 23 (22-30) mmol/L Anion Gap 14 H (4-12) mmol/L BUN 10 (9-20) mg/dL Creatinine 0.79 (0.7-1.3) mg/dL Estim Creat Clear Calc 177 ml/min Estimated GFR > 60 (59 - ) Glucose 127 H (65-110) mg/dL Calcium 9.4 (8.4-10.2) mg/dL Total Bilirubin 0.9 (0.2-1.3) mg/dL AST 30 (17-59) U/L ALT 36 (6-50) U/L Alkaline Phosphatase 135 H (38-126) U/L Total Protein 9.0 H (6.3-8.2) g/dL Albumin 5.0 (3.5-5.1) g/dL Lipase 27 (23-300) U/L Urine Color Dark yellow (Yellow) Urine Appearance Turbid H (Clear) Urine pH 5.5 (5.0-9.0) Ur Specific [place] 1.029 (1.001-1.035) Urine Protein 2+ H (Negative) mg/dL Urine Glucose (UA) Negative (Negative) mg/dL Urine Ketones 2+ H (Negative) mg/dL Ur Blood (Man) Negative (Negative) Urine Nitrate Negative (Negative) Urine Bilirubin 2+ H (Negative) Urine Urobilinogen 1.0 (<2.0) mg/dL Add Ur Microanalysis Reviewed Leukocyte Esterase Rfl Negative (Negative) BRIAN/UL Urine RBC 0-2 (0-2) /hpf Urine WBC 0-5 (0-3) /hpf Ur Squamous Epith Cells Many H (Few) /hpf Urine Bacteria Rare /hpf Urine Casts >20 <Ashley Garza PA-C - Last Filed: 08/21/24 09:36> Lab Results 08/20/24 08/20/24 Range/Units 17:38 20:19 WBC 12.6 H (4.5-10.0) K/mm3 RBC 5.56 (4.6-6.20) M/mm3 Hgb 14.9 (14.0-18.0) g/dL Hct 46.0 (42.0-52.0) % MCV 82.7 (80-100) fl MCH 26.8 (26-34) pg MCHC 32.4 (32-36) g/dl RDW 13.6 (11.5-14.5) % Plt Count 330 (150-375) k/mm3 MPV 11.3 H (7.4-10.4) fl Immature Gran % (Auto) 0.6 H (0-0.5) % Neut % (Auto) 85.0 H (45.5-73.1) % Lymph % (Auto) 6.6 L (18.3-44.2) % [place] % (Auto) 6.5 (2.6-8.5) % Eos % (Auto) 1.0 (0-4.4) % Baso % (Auto) 0.3 (0.2-1.2) % Lymph # (Auto) 0.83 L (0.9-3.2) K/mm3 [place] # (Auto) 0.8 H (0.1-0.6) K/mm3 Eos # (Auto) 0.1 (0-0.3) K/mm3 Baso # (Auto) 0.0 (0.0-0.1) K/mm3 Abs Immat Gran (auto) 0.08 H (0.00-0.031) K/mm3 Absolute Neuts (auto) 10.7 H (1.3-6.7) K/mm3 Absolute Nucleated RBC 0.000 (0.0-0.012) K/mm3 Nucleated RBC % 0.0 (0.0-0.2) % Sodium 140 (137-145) mmol/L Potassium 3.8 (3.4-5.0) mmol/L Chloride 103 (98-107) mmol/L Carbon Dioxide 23 (22-30) mmol/L Anion Gap 14 H (4-12) mmol/L BUN 10 (9-20) mg/dL Creatinine 0.79 (0.7-1.3) mg/dL Estim Creat Clear Calc 177 ml/min Estimated GFR > 60 (59 - ) Glucose 127 H (65-110) mg/dL Calcium 9.4 (8.4-10.2) mg/dL Total Bilirubin 0.9 (0.2-1.3) mg/dL AST 30 (17-59) U/L ALT 36 (6-50) U/L Alkaline Phosphatase 135 H (38-126) U/L Total Protein 9.0 H (6.3-8.2) g/dL Albumin 5.0 (3.5-5.1) g/dL Lipase 27 (23-300) U/L Urine Color Dark yellow (Yellow) Urine Appearance Turbid H (Clear) Urine pH 5.5 (5.0-9.0) Ur Specific [place] 1.029 (1.001-1.035) Urine Protein 2+ H (Negative) mg/dL Urine Glucose (UA) Negative (Negative) mg/dL Urine Ketones 2+ H (Negative) mg/dL Ur Blood (Man) Negative (Negative) Urine Nitrate Negative (Negative) Urine Bilirubin 2+ H (Negative) Urine Urobilinogen 1.0 (<2.0) mg/dL Add Ur Microanalysis Reviewed Leukocyte Esterase Rfl Negative (Negative) BRIAN/UL Urine RBC 0-2 (0-2) /hpf Urine WBC 0-5 (0-3) /hpf Ur Squamous Epith Cells Many H (Few) /hpf Urine Bacteria Rare /hpf Urine Casts >20 <Markos Dash MD - Last Filed: 08/20/24 21:57> Imaging Data Radiologist's impression: ITS Impressions Abdomen/Pelvis CT 08/20/24 21:37 IMPRESSION: Hepatosplenomegaly. Postoperative change. No acute pathology is appreciated within the abdomen or pelvis, detailed above. <Markos Dash MD - Last Filed: 08/20/24 21:57> Critical Care Time Critical Care Time Critical Care Time: No <Ashley Garza PA-C - Last Filed: 08/21/24 09:36> Discharge Plan Discharge Clinical Impression: Vomiting Qualifiers: Vomiting type: unspecified Nausea presence: with nausea Qualified Code(s): R11.2 - Nausea with vomiting, unspecified <Ashley Garza PA-C - Last Filed: 08/21/24 09:36> Patient Disposition: Home <Ashley Garza PA-C - Last Filed: 08/21/24 09:36> Condition: Stable <Ashley Garza PA-C - Last Filed: 08/21/24 09:36> Instructions: Acute Nausea and Vomiting (ED) <Ashley Garza PA-C - Last Filed: 08/21/24 09:36> Patient Language: Guyanese <Ashley Garza PA-C - Last Filed: 08/21/24 09:36> Prescriptions: New ondansetron 4 mg tablet,disintegrating 4 mg PO Q6-8H PRN (Reason: nausea and vomiting) Qty: 14 0RF No Action Skyrizi 150 mg/mL pen injector 150 mg subcut ONCE Patient Comments: Every 3 or 6 months. cyanocobalamin (vitamin B-12) [Vitamin B-12] 100 mcg tablet 100 mcg PO HS hydrocodone-acetaminophen 5-325 mg tablet 1 tablet PO Q6H PRN (Reason: pain) Qty: 20 0RF docusate sodium [Colace] 100 mg capsule 100 mg PO BID Qty: 20 0RF venlafaxine 150 mg capsule,extended release 24hr 150 mg PO DAILY Patient Comments: Says takes at HS amlodipine 10 mg tablet See Rx Instructions .ROUTE .COMPLEX Qty: 90 1RF Dose Instruction: TAKE 1 TABLET BY MOUTH DAILY Patient Comments: Says takes at HS Rx Instructions: TAKE 1 TABLET BY MOUTH DAILY losartan-hydrochlorothiazide 100-12.5 mg tablet 1 tablet PO DAILY Qty: 90 1RF Patient Comments: Says takes at HS <Ashley Garza PA-C - Last Filed: 08/21/24 09:36> Follow-up/Referrals: Luis Tucker APRN [Primary Care Provider] - <Ashley Garza PA-C - Last Filed: 08/21/24 09:36> Time of Disposition: 21:57 <Ashley Garza PA-C - Last Filed: 08/21/24 09:36> 21:57 <Markos Dash MD - Last Filed: 08/20/24 21:57>
[2024-08-20 17:49] LABS: Basophils Percent Auto 0.3 % (0.2-1.2); Eosinophils Absolute Auto 0.1 K/mm3 (0-0.3); Hemoglobin 14.9 g/dL (14.0-18.0); Immature Granulocyte Absolute 0.08 K/mm3 (0.00-0.031); Immature Granulocyte Percent A 0.6 % (0-0.5); Lymphocytes Absolute Auto 0.83 K/mm3 (0.9-3.2); Lymphocytes Percent Auto 6.6 % (18.3-44.2); Mean Corpuscular HGB Conc 32.4 g/dl (32-36); Mean Corpuscular Hemoglobin 26.8 pg (26-34); Mean Corpuscular Volume 82.7 fl (80-100); Mean Platelet Volume 11.3 fl (7.4-10.4); Monocytes Absolute Auto 0.8 K/mm3 (0.1-0.6); Monocytes Percent Auto 6.5 % (2.6-8.5); Neutrophils Absolute Auto 10.7 K/mm3 (1.3-6.7); Platelet Count Result 330 k/mm3 (150-375); Red Blood Count 5.56 M/mm3 (4.6-6.20); Red Cell Distribution Width 13.6 % (11.5-14.5); White Blood Count 12.6 K/mm3 (4.5-10.0)
[2024-08-20] MEDS: FAMOTIDINE 20 MG/2 ML VIAL IV PUSH (18:01)
[2024-08-20] MEDS: ONDANSETRON INJ 4 MG/2 ML VIAL IV PUSH ×2 (18:01→20:26)
[2024-08-20 18:03] LABS: Alanine Aminotransferase 36 U/L (6-50); Alkaline Phosphatase 135 U/L (38-126); Anion Gap 14 mmol/L (4-12); Aspartate Amino Transferase 30 U/L (17-59); Bilirubin,Total 0.9 mg/dL (0.2-1.3); Blood Urea Nitrogen 10 mg/dL (9-20); Calcium 9.4 mg/dL (8.4-10.2); Carbon Dioxide 23 mmol/L (22-30); Chloride 103 mmol/L (98-107); Estimated CRCL calculation 177 ml/min; Estimated Glomerular Filt Rate > 60; Glucose 127 mg/dL (65-110); Lipase 27 U/L (23-300); Potassium 3.8 mmol/L (3.4-5.0); Sodium 140 mmol/L (137-145)
--- OUTSIDE RECORDS SUMMARY | 2024-08-20 18:08 | XMS_ITS | Clinical Summary ---
Author Organization [facility] Address [address] [place] [address] Phone Care Team Providers Care Medical Delivery Technician Name Role Phone Vijay Nolasco Primary Care Provider [phone] Medications SERTRALINE HCL PO Take by mouth. [...] to change Department associated with goal: [facility] Steps [...] to change Department associated with goal: [facility] Steps to achieve goal: Patient counseled on healthy coping skills for depression for the duration of 45 min sessions, 1-2 times monthly Patient counseled on setting healthy boundaries for duration of the 45 min sessions, 1-2 times monthly Patient counseled on aspects of healthy self-care for duration of the 45 min sessions, 1-2 times monthly Insurance [facility] Care Teams Medical Delivery Technician Relationship Specialty Start Date End Date Vijay Nolasco DO [address] [facility] [address] [place] [address] PCP - General Internal Medicine 07/15/20
--- OUTSIDE RECORDS SUMMARY | 2024-08-20 18:08 | XMS_ITS | Encounter Summary ---
Author Organization [facility] Address [address] [place] [address] Phone Care Team Providers Care Research Associate Professor Name Role Phone Vijay Nolasco Primary Care Provider [phone] Encounter Details Date Type Department Care Team (Late st Contact Info) Description 12/22/2021 Behavioral [facility] [address] [place] [address] Mychart, Generic Provider [address] [place] [address] Social History Tobacco Use Types Packs/Day Years [...] Health On track(2021 3:45 PM CDT) Yes Kimbelry Scott LCSW Note: I want to make sure I don't have a relapse with depression/suicidal thoughts, keep working on relationship skills within the next six months. Goal Reviewed Today with: patient Readiness to change: Ready to change Department associated with goal: [facility] Steps to achieve [...] Ready to change Department associated with goal: [facility] Steps to achieve [...] documented as of this encounter Care Teams Research Associate Professor Relationship Specialty Start Date End Date Vijay Nolasco DO [address] [address] PCP - General Internal Medicine 07/15/20 documented as of this encounter
--- OUTSIDE RECORDS SUMMARY | 2024-08-20 18:08 | XMS_ITS | Clinical Summary ---
Author Organization [facility] Address [address] [address] [place] [address] Phone Care Team Providers Care Store Administrator Name Role Phone Vijay Nolasco DO Primary Care Provider [phone] Allergies Active Allergy Reactions Criticality Noted Date [...] STL ABSTRACTION Provider, Abstract 07/04/2024 2:45 PM DIGITAL MARKETING EXECUTIVE Telephone Check Up [facility] Oncology and Hematology - [place] [address] [place] [phone] Jai Dietrich MD Iron deficiency anemia, unspecified iron deficiency anemia type (Primary Dx); Anemia due to vitamin B12 deficiency, unspecified B12 deficiency type 07/04/2024 External Device Data STL ABSTRACTION Provider, Abstract 07/03/2024 Orders Only [facility] Oncology and Hematology - [address] [place] [address] Jai Dietrich MD 07/03/2024 Abstract [facility] Oncology and Hematology - [place] [address] [place] [phone] Jai Dietrich MD 06/06/2024 External Device Data [...] Comments Blood Pressure 127/66 03/29/2024 1:56 PM DIGITAL MARKETING EXECUTIVE Pulse 78 03/29/2024 1:56 PM DIGITAL MARKETING EXECUTIVE Temperature 36.8 C (98.2 F) 03/29/2024 1:56 PM DIGITAL MARKETING EXECUTIVE Respiratory Rate 16 03/29/2024 1:56 PM DIGITAL MARKETING EXECUTIVE Oxygen Saturation 96% 03/29/2024 1:56 PM DIGITAL MARKETING EXECUTIVE Inhaled Oxygen Concentration - - Weight 154.2 kg (340 lb) 03/29/2024 1:56 PM DIGITAL MARKETING EXECUTIVE Height 172.7 cm (5' 8 ) 05/02/2023 9:51 AM DIGITAL MARKETING EXECUTIVE Body Mass Index 51.7 05/02/2023 9:51 AM DIGITAL MARKETING EXECUTIVE Plan of Treatment Upcoming Encounters Date Type Department Care Team (Late st Contact Info) Description 11/01/2024 2:15 PM CDT Office Visit [facility] Oncology and Hematology - [place] [address] [facility] [address] [place] [address] Jai Dietrich MD [address] [facility] [address] [place] [address] Health Maintenance Due Date Last Done Comments HPV VACCINES (1 - Male 3-dose series) 08/08/2015 DTAP/TDAP/TD VACCINES (1 - Tdap) 08/08/2019 HEPATITIS B VACCINES (1 of 3 - 19+ 3-dose series) 07/15 INFLUENZA VACCINE (#1) 2023 Procedures Procedure Name Priority Date/Time Associated Diagnosis Comments CBC WITH DIFFERENTIAL Routine 06/25/2024 12:50 PM DIGITAL MARKETING EXECUTIVE from Last 3 Months Results * CBC WITH DIFFERENTIAL (06/25/2024 12:50 PM DIGITAL MARKETING EXECUTIVE) Blood Jai Dietrich MD HEMATOLOGY ORDERABLES Final Res ult from Last [address] [place] [address] PREFERRED Care Teams Store Administrator Relationship Specialty Start Date End Date Vijay Nolasco DO [address] [facility] [address] [place] [id number] PCP - General Internal Medicine 03/29/24
--- OUTSIDE RECORDS SUMMARY | 2024-08-20 18:08 | XMS_ITS | Encounter Summary ---
Author Organization [facility] Address [address] [place] [address] Phone Care Team Providers Care Judicial Clerk Name Role Phone Vijay Nolasco Primary Care Provider [phone] Encounter Details Date Type Department Care Team (Late st Contact Info) Description 10/27/2021 Behavioral Health Patient Survey [facility] Behavioral Health Services 1 [place] [address] Mychart, Generic Provider [address] [place] [address] Social History Tobacco Use Types Packs/Day Years [...] Ready to change Department associated with goal: [facility] Steps to [...] Ready to change Department associated with goal: [facility] Steps to [...] documented as of this encounter Care Teams Judicial Clerk Relationship Specialty Start Date End Date Vijay Nolasco DO [address] [address] PCP - General Internal Medicine 07/15/20 documented as of this encounter
--- OUTSIDE RECORDS SUMMARY | 2024-08-20 18:08 | XMS_ITS | Encounter Summary ---
Author Organization [facility] Address [address] [place] [address] [place] [address] Phone Care Team Providers Care Foreign Clerk Name Role Phone Vijay Nolasco Primary Care Provider [phone] Encounter Details Date Type Department Care Team (Late st Contact Info) Description 01/26/2022 Behavioral Health [facility] 1 [place] [address] Mychart, Generic Provider [address] [place] [address] Social History Tobacco Use Types Packs/Day Years [...] to change Department associated with goal: [facility] Steps to achieve goal: [...] to change Department associated with goal: [facility] Steps to achieve goal: [...] documented as of this encounter Care Teams Foreign Clerk Relationship Specialty Start Date End Date Vijay Nolasco DO [address] [address] PCP - General Internal Medicine 07/15/20 documented as of this encounter
[2024-08-20 20:16] VITALS: BP 153/67; PULSE 78; RESP 20; O2SAT 96
--- OUTSIDE RECORDS SUMMARY | 2024-08-20 20:23 | XMS_ITS | Clinical Summary ---
Author Organization [facility] Address [address] [address] [place] [address] Phone Care Team Providers Care It Desktop Support Specialist Name Role Phone Vijay Nolasco DO Primary Care Provider [phone] Allergies Active Allergy Reactions Criticality Noted Date [...] STL ABSTRACTION Provider, Abstract 07/04/2024 2:45 PM HAMMERER HELPER Telephone Check Up [facility] Oncology and Hematology - [address] [place] [address] Jai Dietrich MD Iron deficiency anemia, unspecified iron deficiency anemia type (Primary Dx); Anemia due to vitamin B12 deficiency, unspecified B12 deficiency type 07/04/2024 External Device Data STL ABSTRACTION Provider, Abstract 07/03/2024 Orders Only [facility] Oncology and Hematology - [address] [place] [address] Jai Dietrich MD 07/03/2024 Abstract [facility] Oncology and Hematology - [address] [place] [address] Jai Dietrich MD 06/06/2024 External Device Data [...] Comments Blood Pressure 127/66 03/29/2024 1:56 PM HAMMERER HELPER Pulse 78 03/29/2024 1:56 PM HAMMERER HELPER Temperature 36.8 C (98.2 F) 03/29/2024 1:56 PM HAMMERER HELPER Respiratory Rate 16 03/29/2024 1:56 PM HAMMERER HELPER Oxygen Saturation 96% 03/29/2024 1:56 PM HAMMERER HELPER Inhaled Oxygen Concentration - - Weight 154.2 kg (340 lb) 03/29/2024 1:56 PM HAMMERER HELPER Height 172.7 cm (5' 8 ) 05/02/2023 9:51 AM HAMMERER HELPER Body Mass Index 51.7 05/02/2023 9:51 AM HAMMERER HELPER Plan of Treatment Upcoming Encounters Date Type Department Care Team (Late st Contact Info) Description 11/01/2024 2:15 PM CDT Office Visit [facility] Oncology and Hematology - [place] [address] [facility] [address] [place] [address] Jai Dietrich MD [address] [facility] [address] [place] [address] Health Maintenance Due Date Last Done Comments HPV VACCINES (1 - Male 3-dose series) 08/08/2015 DTAP/TDAP/TD VACCINES (1 - Tdap) 08/08/2019 HEPATITIS B VACCINES (1 of 3 - 19+ 3-dose series) 07/15 INFLUENZA VACCINE (#1) 2023 Procedures Procedure Name Priority Date/Time Associated Diagnosis Comments CBC WITH DIFFERENTIAL Routine 06/25/2024 12:50 PM HAMMERER HELPER from Last 3 Months Results * CBC WITH DIFFERENTIAL (06/25/2024 12:50 PM HAMMERER HELPER) Blood Jai Dietrich MD HEMATOLOGY ORDERABLES Final Res ult from Last [address] [address] [place] [address] PREFERRED Care Teams It Desktop Support Specialist Relationship Specialty Start Date End Date Vijay Nolasco DO [address] [facility] [address] [place] [phone] PCP - General Internal Medicine 03/29/24
--- OUTSIDE RECORDS SUMMARY | 2024-08-20 20:23 | XMS_ITS | Clinical Summary ---
Author Organization [facility] Address [address] [place] [address] Phone Care Team Providers Care Humidifier Attendant Name Role Phone Vijay Nolasco Primary Care Provider [phone] Medications SERTRALINE HCL PO Take by mouth. [...] 45 min sessions, 1-2 times monthly Insurance [facility] Care Teams Humidifier Attendant Relationship Specialty Start Date End Date Vijay Nolasco DO [address] [facility] [address] [place] [address] PCP - General Internal Medicine 07/15/20
--- OUTSIDE RECORDS SUMMARY | 2024-08-20 20:23 | XMS_ITS | Encounter Summary ---
Author Organization [facility] Address [address] [place] [address] Phone Care Team Providers Care Clinical Educator Name Role Phone Vijay Nolasco Primary Care Provider [phone] Encounter Details Date Type Department Care Team (Late st Contact Info) Description 10/27/2021 Behavioral Health Patient Survey [facility] Behavioral Health Services [address] [place] [address] Mychart, Generic Provider [address] [place] [address] Social History Tobacco Use Types Packs/Day Years [...] Ready to change Department associated with goal: [facility] Steps [...] Ready to change Department associated with goal: [facility] Steps [...] documented as of this encounter Care Teams Clinical Educator Relationship Specialty Start Date End Date Vijay Nolasco DO [address] [address] PCP - General Internal Medicine 07/15/20 documented as of this encounter
--- OUTSIDE RECORDS SUMMARY | 2024-08-20 20:23 | XMS_ITS | Encounter Summary ---
Author Organization [facility] Address [address] [place] [address] Phone Care Team Providers Care Home Agent Name Role Phone Vijay Nolasco Primary Care Provider [phone] Encounter Details Date Type Department Care Team (Late st Contact Info) Description 01/26/2022 [facility] 1 [place] [address] Mychart, Generic Provider [address] [place] [address] Social History Tobacco Use Types Packs/Day Years [...] Ready to change Department associated with goal: [facility] Steps to [...] Ready to change Department associated with goal: [facility] Steps to [...] documented as of this encounter Care Teams Home Agent Relationship Specialty Start Date End Date Vijay Nolasco DO [address] [address] PCP - General Internal Medicine 07/15/20 documented as of this encounter
--- OUTSIDE RECORDS SUMMARY | 2024-08-20 20:23 | XMS_ITS | Encounter Summary ---
Author Organization [facility] Address [address] [place] [address] Phone Care Team Providers Care Radiotelegrapher Name Role Phone Vijay Nolasco Primary Care Provider [phone] Encounter Details Date Type Department Care Team (Late st Contact Info) Description 12/22/2021 [facility] 1 [place] [address] Mychart, Generic Provider [address] [place] [address] Social History Tobacco Use Types Packs/Day Years [...] Ready to change Department associated with goal: [facility] Steps to achieve goal: [...] Ready to change Department associated with goal: [facility] Steps to achieve goal: [...] documented as of this encounter Care Teams Radiotelegrapher Relationship Specialty Start Date End Date Vijay Nolasco DO [address] [address] PCP - General Internal Medicine 07/15/20 documented as of this encounter
[2024-08-20] MEDS: SODIUM CHLORIDE 0.9% IV 1,000 ML 999 ML IV CONT (20:26)
[2024-08-20 20:39] LABS: Add Urine Microscopic? YES; Appearance Urine Turbid (Clear); Bacteria Urine Rare /hpf; Bilirubin Urine 2+ (Negative); Blood Urine Negative (Negative); Color Urine Dark Yellow (Yellow); Glucose Urine UA Negative (Negative); Ketones Urine 2+ mg/dL (Negative); Leukocyte Esterase Ur Negative LEU/UL (Negative); Need Manual Microscopic Reviewed; Nitrate Urine Negative (Negative); Non Pathogenic Casts >20; Protein Urine 2+ mg/dL (Negative); RBC Urine 0-2 /hpf (0-2); Specific Grav Ur 1.029 (1.001-1.035); Squamous Epithelial Cell Urine Many /hpf (Few); WBC Urine 0-5 /hpf (0-3); pH Urine 5.5 (5.0-9.0)
[2024-08-20 22:04] VITALS: BP 148/80; PULSE 79; RESP 19; O2SAT 96
== END 2024-08-20 22:05 | disposition home or self-care (01) ==
PROVIDERS: Physician Assistant; Emergency Provider Family Medicine; PCP Nurse Practitioner
DX: R11.2 Nausea with vomiting, unspecified (principal); I10 Essential (primary) hypertension; E66.01 Morbid (severe) obesity due to excess calories; Z68.42 Body mass index [BMI] 45.0-49.9, adult; K58.0 Irritable bowel syndrome with diarrhea; L40.50 Arthropathic psoriasis, unspecified; L40.9 Psoriasis, unspecified; F41.9 Anxiety disorder, unspecified; F32.A Depression, unspecified; R16.2 Hepatomegaly with splenomegaly, not elsewhere classified; Z79.899 Other long term (current) drug therapy; Z79.620 Long term (current) use of immunosuppressive biologic
CPT/HCPCS: 36415; 74177; 80053; 81001; 83690; 85025; 96361; 96374; 96375; 96376; 99284; J2405; J7030; Q9967

== ENCOUNTER 2024-09-12 15:33 | Emergency (ER) | payer BC, SELFPAY ==
--- NOTE | ~2024-09-12 | CT_ITS ---
CLINICAL INDICATION: Nausea, chills, diarrhea, and abdominal pain COMPARISON: 08/20/2024. TECHNIQUE: Multiple contiguous axial images of the abdomen and pelvis were performed without the admi nistration of intravenous contrast The dose-length product (DLP) was 1619.16 mGy-cm. Automated exposure control and iterative reconstruction technique were employed. FINDINGS/OBSERVATIONS: Visualized lower thorax: The bilateral lung bases are clear. The heart is of normal size, without pericardial effusion. Small hiatal hernia is present. Liver: The liver demonstrates homogeneous attenuation and is enlarged measuring 20 cm in longitudinal dimens ion. Gallbladder and biliary system: The gallbladder is only minimally distended, and otherwise unremarkable. Pancreas: Limited evaluation of the pancreas secondary to the lack of intravenous contrast. Fatty atrophy, is n oted. Spleen: The spleen demonstrates homogeneous attenuation and is not enlarged measuring 11 cm in longitudinal d imension. Kidneys: The bilateral kidneys are unremarkable, without hydronephrosis or renal calculi. Adrenal glands: Unremarkable. Gastrointestinal tract: Fecal stasis within the colon. Appendix: The air-filled appendix is of normal caliber (axial series, images 114 through 120). Vasculature: Unremarkable. Lymph nodes: No pathologically enlarged or morphologically suspicious lymph nodes within the retroperitoneum or at the root of the mesentery. Pelvic structures: The bladder is minimally distended, and otherwise unremarkable. The prostate gland is not enlarged. Body wall and musculoskeletal: No significant degenerative disease within the lower thoracic or lumbosacral spine. IMPRESSION: Hepatomegaly. No acute pathology within the abdomen or pelvis, as detailed above. Reviewed, dictated and finalized at location A.
[2024-09-12 15:36] VITALS: BP 152/90; PULSE 83; RESP 20; TEMP 36.7; O2SAT 97
--- NOTE | 2024-09-12 15:43 | ED_ITS ---
HPI - Nausea/Vomiting/Diarrhea General Chief complaint: Nausea/Vomiting/Diarrhea <Starr Bourne APRN - Last Filed: 09/12/24 15:45> Stated complaint: hernia problems <Starr Bourne APRN - Last Filed: 09/12/24 15:45> Time Seen by Provider: 09/12/24 15:35 <Starr Bourne APRN - Last Filed: 09/12/24 15:45> Focused HPI: Patient is a 24-year-old, obese male who presents to the ER with nausea, chills, diarrhea, and abdominal pain. He reports his pain started earlier today. Patient denies any urinary symptoms, back pain, recent fevers, or chest pain. He reports his only medical history is high blood pressure. GENERAL: Well-appearing, obese, and in no acute distress. HEAD: Normocephalic, atraumatic. CHEST: Clear to auscultation. ?No respiratory distress. HEART: Regular rate and rhythm.? NEURO: ?Alert and oriented x3. Patient screened in triage and initial orders placed.? ?Additional care and disposition to be based upon?diagnostic testing and treatment. <Starr Bourne APRN - Last Filed: 09/12/24 15:45> History of Present Illness HPI Narrative: Patient is a 24-year-old gentleman who presents emergency department with chief complaint of nausea vomiting and diarrhea. The patient reports that he has been having issues since he had his appendectomy that was done at our facility. The patient states that he has had a possible hernia and was concerned that there may be issues going on side of his abdomen. <Juno Howard MD - Last Filed: 09/12/24 19:07> Related Data Home medications: Home Medications ?Medication ?Instructions ?Recorded ?Confirmed ?Last Taken ?Type venlafaxine 150 mg 150 mg PO DAILY 12/12/20 09/05/24 08/15/24 History capsule,extended release 24 hr risankizumab-rzaa 150 mg/mL 150 mg subcut ONCE 06/07/24 09/05/24 Unknown History subcutaneous pen injector (Ebenezeryrashiai) cyanocobalamin (vitamin B-12) 100 100 mcg PO HS 08/10/24 09/05/24 08/13/24 History mcg tablet (Vitamin B-12) <Starr Bourne, TRAFFIC EXPERT - Last Filed: 09/12/24 15:45> Allergies/Adverse reactions: Allergies Allergy/AdvReac Type Severity Reaction Status Date / Time vancomycin Allergy Intermediate SWELLING/ITCHING/ ELIO Verified 09/05/24 09:46 SYNDROME <Starr Bourne, TRAFFIC EXPERT - Last Filed: 09/12/24 15:45> Review of Systems 2 Review of Systems: A 10 system review of systems was completed on the patient and is negative except for what is stated in the HPI. Nursing and ancillary documentation was reviewed. <Juno Howard MD - Last Filed: 09/12/24 19:07> [facility] Past Medical History Medical History: Medical History Psoriatic arthritis Irritable bowel syndrome with diarrhea Diarrhea Morbid obesity with BMI of 45.0-49.9, adult HTN (hypertension) Nasal obstruction Nasal folliculitis Anxiety Tinea corporis Psoriasis Morbid obesity Depression <Starr Bourne, TRAFFIC EXPERT - Last Filed: 09/12/24 15:45> Surgical History Surgical History: Surgical History History of laparoscopic appendectomy 08/16/24 robotic assisted appendectomy, lysis of adhesions Dr. Lizarraga H/O sinus surgery <Starr Bourne, TRAFFIC EXPERT - Last Filed: 09/12/24 15:45> Family History Family History: Family History Father Alcohol abuse by father Depression Hypertension Mother Depression Diabetes mellitus Glaucoma Grandparent Depression Thyroid disorder <Starr Bourne APRN - Last Filed: 09/12/24 15:45> Social History Social History: Social History Smoking status: Never smoker Second hand tobacco smoke exposure: No Alcohol intake: never Substance use: never Substance use type: marijuana Other substance usage details: Once in awhile Last use: 07/23/24 Current Housing: Decline to Answer Concerned About Future Housing: Decline to Answer Difficulty Paying Gas/Electric Bills: Decline to Answer Difficulty Paying for Meds: Decline to Answer Currently Unemployed: Decline to Answer Education: High School Diploma/GED Difficulty w/ Childcare or Family Care: No Living arrangements: with family Occupation/Education: unemployed Gender identity (if verbalized by the patient): Male Spiritual care concerns: No Agree to blood products: Yes <Starr Bourne APRN - Last Filed: 09/12/24 15:45> Exam 2 Narrative: GENERAL: Well-appearing, well-nourished, and in no acute distress. HEAD: Normocephalic, atraumatic. EYES: PERRLA and EOMI. ENT: Nares clear, no rhinorrhea or epistaxis. Mucous membranes moist. NECK: Supple. CHEST: Clear to auscultation. No respiratory distress. HEART: Regular rate and rhythm. No murmur heard. Normal peripheral pulses. ABDOMEN: Soft, nontender, nondistended, normal active bowel sounds. EXTREMITIES: Normal range of motion. No edema. SKIN: Warm, dry, no rash. NEURO: No focal deficits. Alert and oriented x3. PSYCH: Normal mood and affect. <Juno Howard MD - Last Filed: 09/12/24 19:07> Course Vital Signs Vital signs: Vital Signs Temperature 36.7 C 09/12/24 15:36 Pulse Rate 83 09/12/24 15:36 Respiratory Rate 20 09/12/24 15:36 Blood Pressure 152/90 H 09/12/24 15:36 Pulse Oximetry 97 09/12/24 15:36 Temperature 36.7 C 09/12/24 15:36 Pulse Rate 83 09/12/24 15:36 Respiratory Rate 20 09/12/24 15:36 Blood Pressure 152/90 H 09/12/24 15:36 Pulse Oximetry 97 09/12/24 15:36 <Starr Bourne APRN - Last Filed: 09/12/24 15:45> Vital Signs Temperature 36.7 C 09/12/24 15:36 Pulse Rate 83 09/12/24 15:36 Respiratory Rate 20 09/12/24 15:36 Blood Pressure 152/90 H 09/12/24 15:36 Pulse Oximetry 97 09/12/24 15:36 Temperature 36.7 C 09/12/24 15:36 Pulse Rate 83 09/12/24 15:36 Respiratory Rate 20 09/12/24 15:36 Blood Pressure 152/90 H 09/12/24 15:36 Pulse Oximetry 97 09/12/24 15:36 <Juno Howard MD - Last Filed: 09/12/24 19:07> MDM - Nausea/Vomiting/Diarrhea MDM Narrative Medical decision making narrative: Differential diagnosis includes intra-abdominal infection, diverticulitis, colitis, hernia, gastroenteritis Laboratory studies were obtained on the patient showed normal CBC CMP was within normal limits except for a glucose of 138 urinalysis was within normal limits CT scan of the abdomen pelvis showed IMPRESSION: Hepatomegaly. No acute pathology within the abdomen or pelvis, as detailed above. <Juno Howard MD - Last Filed: 09/12/24 19:07> Lab Data Result diagrams: 09/12/24 16:05 09/12/24 16:05 <Starr Bourne APRN - Last Filed: 09/12/24 15:45> Labs: Lab Results 09/12/24 Range/Units 16:05 WBC 7.9 (4.5-10.0) K/mm3 RBC 5.41 (4.6-6.20) M/mm3 Hgb 14.2 (14.0-18.0) g/dL Hct 45.4 (42.0-52.0) % MCV 83.9 (80-100) fl MCH 26.2 (26-34) pg MCHC 31.3 L (32-36) g/dl RDW 13.4 (11.5-14.5) % Plt Count 304 (150-375) k/mm3 MPV 11.9 H (7.4-10.4) fl Immature Gran % (Auto) 0.3 (0-0.5) % Neut % (Auto) 80.7 H (45.5-73.1) % Lymph % (Auto) 11.9 L (18.3-44.2) % Nobles % (Auto) 5.8 (2.6-8.5) % Eos % (Auto) 1.0 (0-4.4) % Baso % (Auto) 0.3 (0.2-1.2) % Lymph # (Auto) 0.94 (0.9-3.2) K/mm3 Nobles # (Auto) 0.5 (0.1-0.6) K/mm3 Eos # (Auto) 0.1 (0-0.3) K/mm3 Baso # (Auto) 0.0 (0.0-0.1) K/mm3 Abs Immat Gran (auto) 0.02 (0.00-0.031) K/mm3 Absolute Neuts (auto) 6.4 (1.3-6.7) K/mm3 Absolute Nucleated RBC 0.000 (0.0-0.012) K/mm3 Nucleated RBC % 0.0 (0.0-0.2) % Sodium 139 (137-145) mmol/L Potassium 3.8 (3.4-5.0) mmol/L Chloride 103 (98-107) mmol/L Carbon Dioxide 25 (22-30) mmol/L Anion Gap 11 (4-12) mmol/L BUN 11 (9-20) mg/dL Creatinine 0.70 (0.7-1.3) mg/dL Estim Creat Clear Calc 189 ml/min Estimated GFR > 60 (59 - ) Glucose 138 H (65-110) mg/dL Calcium 9.2 (8.4-10.2) mg/dL Total Bilirubin 0.8 (0.2-1.3) mg/dL AST 26 (17-59) U/L ALT 37 (6-50) U/L Alkaline Phosphatase 118 (38-126) U/L Total Protein 8.0 (6.3-8.2) g/dL Albumin 4.6 (3.5-5.1) g/dL Lipase 32 (23-300) U/L Urine Color Yellow (Yellow) Urine Appearance Clear (Clear) Urine pH 5.5 (5.0-9.0) Ur Specific Foxworth 1.016 (1.001-1.035) Urine Protein Negative (Negative) mg/dL Urine Glucose (UA) Negative (Negative) mg/dL Urine Ketones Negative (Negative) mg/dL Ur Blood (Man) Negative (Negative) Urine Nitrate Negative (Negative) Urine Bilirubin Negative (Negative) Urine Urobilinogen 0.2 (<2.0) mg/dL Leukocyte Esterase Rfl Negative (Negative) BRIAN/UL <Starr L. Tayla, TRAFFIC EXPERT - Last Filed: 09/12/24 15:45> Lab Results 09/12/24 Range/Units 16:05 WBC 7.9 (4.5-10.0) K/mm3 RBC 5.41 (4.6-6.20) M/mm3 Hgb 14.2 (14.0-18.0) g/dL Hct 45.4 (42.0-52.0) % MCV 83.9 (80-100) fl MCH 26.2 (26-34) pg MCHC 31.3 L (32-36) g/dl RDW 13.4 (11.5-14.5) % Plt Count 304 (150-375) k/mm3 MPV 11.9 H (7.4-10.4) fl Immature Gran % (Auto) 0.3 (0-0.5) % Neut % (Auto) 80.7 H (45.5-73.1) % Lymph % (Auto) 11.9 L (18.3-44.2) % Nobles % (Auto) 5.8 (2.6-8.5) % Eos % (Auto) 1.0 (0-4.4) % Baso % (Auto) 0.3 (0.2-1.2) % Lymph # (Auto) 0.94 (0.9-3.2) K/mm3 Nobles # (Auto) 0.5 (0.1-0.6) K/mm3 Eos # (Auto) 0.1 (0-0.3) K/mm3 Baso # (Auto) 0.0 (0.0-0.1) K/mm3 Abs Immat Gran (auto) 0.02 (0.00-0.031) K/mm3 Absolute Neuts (auto) 6.4 (1.3-6.7) K/mm3 Absolute Nucleated RBC 0.000 (0.0-0.012) K/mm3 Nucleated RBC % 0.0 (0.0-0.2) % Sodium 139 (137-145) mmol/L Potassium 3.8 (3.4-5.0) mmol/L Chloride 103 (98-107) mmol/L Carbon Dioxide 25 (22-30) mmol/L Anion Gap 11 (4-12) mmol/L BUN 11 (9-20) mg/dL Creatinine 0.70 (0.7-1.3) mg/dL Estim Creat Clear Calc 189 ml/min Estimated GFR > 60 (59 - ) Glucose 138 H (65-110) mg/dL Calcium 9.2 (8.4-10.2) mg/dL Total Bilirubin 0.8 (0.2-1.3) mg/dL AST 26 (17-59) U/L ALT 37 (6-50) U/L Alkaline Phosphatase 118 (38-126) U/L Total Protein 8.0 (6.3-8.2) g/dL Albumin 4.6 (3.5-5.1) g/dL Lipase 32 (23-300) U/L Urine Color Yellow (Yellow) Urine Appearance Clear (Clear) Urine pH 5.5 (5.0-9.0) Ur Specific Foxworth 1.016 (1.001-1.035) Urine Protein Negative (Negative) mg/dL Urine Glucose (UA) Negative (Negative) mg/dL Urine Ketones Negative (Negative) mg/dL Ur Blood (Man) Negative (Negative) Urine Nitrate Negative (Negative) Urine Bilirubin Negative (Negative) Urine Urobilinogen 0.2 (<2.0) mg/dL Leukocyte Esterase Rfl Negative (Negative) BRIAN/UL <Juno Howard MD - Last Filed: 09/12/24 19:07> Discharge Plan Discharge Clinical Impression: Abdominal pain, Diarrhea, Nausea & vomiting <Starr Bourne APRN - Last Filed: 09/12/24 15:45> Patient Disposition: Home <Starr Bourne APRN - Last Filed: 09/12/24 15:45> Condition: Stable <Starr Bourne APRN - Last Filed: 09/12/24 15:45> Instructions: Antibiotic Form, Acute Nausea and Vomiting (ED), Acute Diarrhea (ED), Abdominal Pain (ED) <Starr Bourne APRN - Last Filed: 09/12/24 15:45> Patient Language: Urdu <Starr Bourne APRN - Last Filed: 09/12/24 15:45> Prescriptions: New ondansetron 4 mg tablet,disintegrating 4 mg PO Q8H PRN (Reason: nausea and vomiting) Qty: 10 0RF No Action Skyrizi 150 mg/mL pen injector 150 mg subcut ONCE Patient Comments: Every 3 or 6 months. cyanocobalamin (vitamin B-12) [Vitamin B-12] 100 mcg tablet 100 mcg PO HS venlafaxine 150 mg capsule,extended release 24hr 150 mg PO DAILY Patient Comments: Says takes at HS amlodipine 10 mg tablet See Rx Instructions .ROUTE .COMPLEX Qty: 90 1RF Dose Instruction: TAKE 1 TABLET BY MOUTH DAILY Patient Comments: Says takes at HS Rx Instructions: TAKE 1 TABLET BY MOUTH DAILY losartan-hydrochlorothiazide 100-12.5 mg tablet 1 tablet PO DAILY Qty: 90 1RF Patient Comments: Says takes at HS <Starr Bourne APRN - Last Filed: 09/12/24 15:45> Follow-up/Referrals: Luis Tucker, MARY [Primary Care Provider] - <Starr Bourne APRN - Last Filed: 09/12/24 15:45> Time of Disposition: 19:06 <Starr Bourne APRN - Last Filed: 09/12/24 15:45> 19:06 <Juno Howard MD - Last Filed: 09/12/24 19:07>
[2024-09-12 16:21] LABS: Basophils Percent Auto 0.3 % (0.2-1.2); Eosinophils Absolute Auto 0.1 K/mm3 (0-0.3); Hematocrit 45.4 % (42.0-52.0); Hemoglobin 14.2 g/dL (14.0-18.0); Immature Granulocyte Absolute 0.02 K/mm3 (0.00-0.031); Immature Granulocyte Percent A 0.3 % (0-0.5); Lymphocytes Absolute Auto 0.94 K/mm3 (0.9-3.2); Lymphocytes Percent Auto 11.9 % (18.3-44.2); Mean Corpuscular HGB Conc 31.3 g/dl (32-36); Mean Corpuscular Hemoglobin 26.2 pg (26-34); Mean Corpuscular Volume 83.9 fl (80-100); Mean Platelet Volume 11.9 fl (7.4-10.4); Monocytes Absolute Auto 0.5 K/mm3 (0.1-0.6); Monocytes Percent Auto 5.8 % (2.6-8.5); Neutrophils Absolute Auto 6.4 K/mm3 (1.3-6.7); Neutrophils Percent Auto 80.7 % (45.5-73.1); Platelet Count Result 304 k/mm3 (150-375); Red Blood Count 5.41 M/mm3 (4.6-6.20); Red Cell Distribution Width 13.4 % (11.5-14.5); White Blood Count 7.9 K/mm3 (4.5-10.0)
--- OUTSIDE RECORDS SUMMARY | 2024-09-12 16:21 | XMS_ITS | Clinical Summary ---
Author Organization [facility] Address [address] [address] [place] [address] Phone Care Team Providers Care Distribution Associate Name Role Phone Vijay Nolasco DO Primary Care Provider [phone] Allergies Active Allergy Reactions Criticality Noted Date [...] Encounters Date Type Department Care Team Description 08/28/2024 External Device Data [facility] ABSTRACTION Provider, Abstract 08/01/2024 External Device Data [facility] Provider, Abstract 07/24/2024 External Device Data [facility] Provider, Abstract 07/24/2024 External Device Data [facility] Provider, Abstract 07/10/2024 External Device Data [facility] Provider, Abstract 07/04/2024 2:45 PM [facility] Telephone Check Up [facility] [place] [address] [place] [address] Jai Dietrich MD Iron deficiency anemia, unspecified iron deficiency anemia type (Primary Dx); Anemia due to vitamin B12 deficiency, unspecified B12 deficiency type 07/04/2024 External Device Data [facility] Provider, Abstract 07/03/2024 Orders Only [facility] [place] [address] [place] [address] Jai Dietrich MD 07/03/2024 Abstract [facility] [place] [address] [place] [address] Jai Dietrich MD from Last 3 Months Family History Medical [...] Comments Blood Pressure 127/66 03/29/2024 1:56 PM [facility] Pulse 78 03/29/2024 1:56 PM [facility] Temperature 36.8 C (98.2 F) 03/29/2024 1:56 PM [facility] Respiratory Rate 16 03/29/2024 1:56 PM [facility] Oxygen Saturation 96% 03/29/2024 1:56 PM [facility] Inhaled Oxygen Concentration - - Weight 154.2 kg (340 lb) 03/29/2024 1:56 PM [facility] Height 172.7 cm (5' 8 ) 05/02/2023 9:51 AM [facility] Body Mass Index 51.7 05/02/2023 9:51 AM [facility] Plan of Treatment Upcoming Encounters Date Type Department Care Team (Late st Contact Info) Description 11/01/2024 2:15 PM CDT Office Visit [facility] [address] [place] [address] Jai Dietrich MD [address] [facility] [address] [place] [address] Health Maintenance Due Date Last Done Comments HPV VACCINES (1 - Male 3-dose series) 08/08/2015 DTAP/TDAP/TD VACCINES (1 - Tdap) 08/08/2019 HEPATITIS B VACCINES (1 of 3 - 19+ 3-dose series) 07/15 INFLUENZA VACCINE (#1) 2023 Procedures Procedure Name Priority Date/Time Associated Diagnosis Comments CBC WITH DIFFERENTIAL Routine 06/25/2024 12:50 PM [facility] from Last 3 Months Results * CBC WITH DIFFERENTIAL (06/25/2024 12:50 PM [facility]) Blood us Jai Dietrich MD HEMATOLOGY ORDERABLES Final Res ult from Last 3 Months Insurance Care Teams Distribution Associate Relationship Specialty Start Date End Date Vijay Nolasco DO [address] [facility] [address] [place] [address] PCP - General Internal Medicine 03/29/24
--- OUTSIDE RECORDS SUMMARY | 2024-09-12 16:21 | XMS_ITS | Encounter Summary ---
Author Organization [facility] Address [address] [place] [address] Phone Care Team Providers Care Tax Accountant Name Role Phone Vijay Nolasco Primary Care Provider [phone] Encounter Details Date Type Department Care Team (Late st Contact Info) Description 12/22/2021 [facility] 1 [place] [address] Mychart, Generic Provider [address] [place] [address] Social History Tobacco Use Types Packs/Day Years [...] Ready to change Department associated with goal: [facility] Steps to [...] Ready to change Department associated with goal: [facility] Steps to [...] documented as of this encounter Care Teams Tax Accountant Relationship Specialty Start Date End Date Vijay Nolasco DO [address] [address] PCP - General Internal Medicine 07/15/20 documented as of this encounter
--- OUTSIDE RECORDS SUMMARY | 2024-09-12 16:21 | XMS_ITS | Encounter Summary ---
Author Organization [facility] Address [address] [place] [address] Phone Care Team Providers Care Pumping Station Supervisor Name Role Phone Vijay Nolasco Primary Care Provider [phone] Encounter Details Date Type Department Care Team (Late st Contact Info) Description 01/26/2022 [facility] 1 [place] [address] Mychart, Generic Provider [address] [place] [address] Social History Tobacco Use Types Packs/Day Years [...] documented as of this encounter Care Teams Pumping Station Supervisor Relationship Specialty Start Date End Date Vijay Nolasco DO [address] [address] PCP - General Internal Medicine 07/15/20 documented as of this encounter
--- OUTSIDE RECORDS SUMMARY | 2024-09-12 16:21 | XMS_ITS | Clinical Summary ---
[facility] Address [address] [place] [address] Phone Care Team Providers Care Loader Magazine Grinder Name Role Phone Vijay Nolasco Primary Care Provider [phone] Medications SERTRALINE HCL PO Take by mouth. [...] change Department associated with goal: [facility] Steps to achieve [...] change Department associated with goal: [facility] Steps to achieve goal: Patient counseled on healthy coping skills for depression for the duration of 45 min sessions, 1-2 times monthly Patient counseled on setting healthy boundaries for duration of the 45 min sessions, 1-2 times monthly Patient counseled on aspects of healthy self-care for duration of the 45 min sessions, 1-2 times monthly Insurance [facility] Care Teams Loader Magazine Grinder Relationship Specialty Start Date End Date Vijay Nolasco DO [address] [facility] [address] [place] [address] PCP - General Internal Medicine 07/15/20
--- OUTSIDE RECORDS SUMMARY | 2024-09-12 16:21 | XMS_ITS | Encounter Summary ---
Author Organization [facility] Address [address] [place] [address] Phone Care Team Providers Care House Moving Supervisor Name Role Phone Vijay Nolasco Primary Care Provider [phone] Encounter Details Date Type Department Care Team (Late st Contact Info) Description 10/27/2021 Behavioral Health Patient Survey [facility] 1 [place] [address] Mychart, Generic Provider [address] [place] [address] Social History Tobacco Use Types Packs/Day Years [...] Ready to change Department associated with goal: [facility] Steps to achieve [...] Ready to change Department associated with goal: [facility] Steps to achieve [...] documented as of this encounter Care Teams House Moving Supervisor Relationship Specialty Start Date End Date Vijay Nolasco DO [address] [address] PCP - General Internal Medicine 07/15/20 documented as of this encounter
[2024-09-12 16:23] LABS: Add Urine Microscopic? NO; Appearance Urine Clear (Clear); Bilirubin Urine Negative (Negative); Blood Urine Negative (Negative); Color Urine Yellow (Yellow); Glucose Urine UA Negative (Negative); Ketones Urine Negative (Negative); Leukocyte Esterase Ur Negative LEU/UL (Negative); Nitrate Urine Negative (Negative); Protein Urine Negative (Negative); Specific Grav Ur 1.016 (1.001-1.035); Urobilinogen Urine 0.2 mg/dL (<2.0); pH Urine 5.5 (5.0-9.0)
[2024-09-12 16:36] LABS: Alanine Aminotransferase 37 U/L (6-50); Albumin Level 4.6 g/dL (3.5-5.1); Alkaline Phosphatase 118 U/L (38-126); Anion Gap 11 mmol/L (4-12); Aspartate Amino Transferase 26 U/L (17-59); Bilirubin,Total 0.8 mg/dL (0.2-1.3); Blood Urea Nitrogen 11 mg/dL (9-20); Calcium 9.2 mg/dL (8.4-10.2); Carbon Dioxide 25 mmol/L (22-30); Chloride 103 mmol/L (98-107); Estimated CRCL calculation 189 ml/min; Estimated Glomerular Filt Rate > 60; Glucose 138 mg/dL (65-110); Lipase 32 U/L (23-300); Potassium 3.8 mmol/L (3.4-5.0); Sodium 139 mmol/L (137-145)
--- OUTSIDE RECORDS SUMMARY | 2024-09-12 18:54 | XMS_ITS | Clinical Summary ---
Author Organization [facility] Address [address] [place] [address] Phone Care Team Providers Care Conservation Agent Name Role Phone Vijay Nolasco Primary Care Provider [phone] Medications SERTRALINE HCL PO Take by mouth. [...] Ready to change Department associated with goal: [facility] Steps to achieve goal: [...] Ready to change Department associated with goal: [facility] Steps to achieve goal: Patient counseled on healthy coping skills for depression for the duration of 45 min sessions, 1-2 times monthly Patient counseled on setting healthy boundaries for duration of the 45 min sessions, 1-2 times monthly Patient counseled on aspects of healthy self-care for duration of the 45 min sessions, 1-2 times monthly Insurance [facility] Care Teams Conservation Agent Relationship Specialty Start Date End Date Vijay Nolasco DO [address] [facility] [address] [place] [address] PCP - General Internal Medicine 07/15/20
--- OUTSIDE RECORDS SUMMARY | 2024-09-12 18:54 | XMS_ITS | Encounter Summary ---
Author Organization [facility] Address [address] [place] [address] Phone Care Team Providers Care Ortho Tech Name Role Phone Vijay Nolasco Primary Care Provider [phone] Encounter Details Date Type Department Care Team (Late st Contact Info) Description 12/22/2021 [facility] 1 [place] [address] Mychart, Generic Provider [address] [place] [address] Social History Tobacco Use Types Packs/Day Years [...] Ready to change Department associated with goal: [facility] Steps to achieve [...] Ready to change Department associated with goal: [facility] Steps to achieve [...] documented as of this encounter Care Teams Ortho Tech Relationship Specialty Start Date End Date Vijay Nolasco DO [address] [address] PCP - General Internal Medicine 07/15/20 documented as of this encounter
--- OUTSIDE RECORDS SUMMARY | 2024-09-12 18:54 | XMS_ITS | Encounter Summary ---
Author Organization [facility] Address [address] [place] [address] Phone Care Team Providers Care Coil Repair Technician Name Role Phone Vijay Nolasco Primary Care Provider [phone] Encounter Details Date Type Department Care Team (Late st Contact Info) Description 10/27/2021 Behavioral Health Patient Survey [facility] Behavior[facility] Health Services 1 [place] [address] Mychart, Generic Provider [address] [place] [address] Social History Tobacco Use Types Packs/Day Years [...] change Department associated with goal: [facility] Steps to achieve goal: [...] change Department associated with goal: [facility] Steps to achieve goal: [...] documented as of this encounter Care Teams Coil Repair Technician Relationship Specialty Start Date End Date Vijay Nolasco DO [address] [address] PCP - General Internal Medicine 07/15/20 documented as of this encounter
--- OUTSIDE RECORDS SUMMARY | 2024-09-12 18:54 | XMS_ITS | Clinical Summary ---
Author Organization [facility] Address [address] [address] [place] [address] Phone Care Team Providers Care Assistant Accounting Manager Name Role Phone Vijay Nolasco DO Primary Care Provider [phone] Allergies Active Allergy Reactions Criticality Noted Date [...] ABSTRACTION Provider, Abstract 07/04/2024 2:45 PM DIRECTOR OF STRATEGIC SOURCING Telephone Check Up [facility] Oncology and Hematology - [address] [place] [address] Jai Dietrich MD Iron deficiency anemia, unspecified iron deficiency anemia type (Primary Dx); Anemia due to vitamin B12 deficiency, unspecified B12 deficiency type 07/04/2024 External Device Data STL ABSTRACTION Provider, Abstract 07/03/2024 Orders Only [facility] Oncology and Hematology - [place] [address] [place] [address] Jai Dietrich MD 07/03/2024 Abstract [facility] Oncology and Hematology [place] [address] [place] [address] Jai Dietrich MD from Last [...] Blood Pressure 127/66 03/29/2024 1:56 PM DIRECTOR OF STRATEGIC SOURCING Pulse 78 03/29/2024 1:56 PM DIRECTOR OF STRATEGIC SOURCING Temperature 36.8 C (98.2 F) 03/29/2024 1:56 PM DIRECTOR OF STRATEGIC SOURCING Respiratory Rate 16 03/29/2024 1:56 PM DIRECTOR OF STRATEGIC SOURCING Oxygen Saturation 96% 03/29/2024 1:56 PM DIRECTOR OF STRATEGIC SOURCING Inhaled Oxygen Concentration - - Weight 154.2 kg (340 lb) 03/29/2024 1:56 PM DIRECTOR OF STRATEGIC SOURCING Height 172.7 cm (5' 8 ) 05/02/2023 9:51 AM DIRECTOR OF STRATEGIC SOURCING Body Mass Index 51.7 05/02/2023 9:51 AM DIRECTOR OF STRATEGIC SOURCING Plan of Treatment Upcoming Encounters Date Type Department Care Team (Late st Contact Info) Description 11/01/2024 2:15 PM CDT Office Visit [facility] Oncology and Hematology [facility] [address] [place] [address] Jai Dietrich MD [address] [facility] [address] [place] [address] Health Maintenance Due Date Last Done Comments HPV VACCINES (1 - Male 3-dose series) 08/08/2015 DTAP/TDAP/TD VACCINES (1 - Tdap) 08/08/2019 HEPATITIS B VACCINES (1 of 3 - 19+ 3-dose series) 07/15 INFLUENZA VACCINE (#1) 2023 Procedures Procedure Name Priority Date/Time Associated Diagnosis Comments CBC WITH DIFFERENTIAL Routine 06/25/2024 12:50 PM DIRECTOR OF STRATEGIC SOURCING from Last 3 Months Results * CBC WITH DIFFERENTIAL (06/25/2024 12:50 PM DIRECTOR OF STRATEGIC SOURCING) Blood us Jai Dietrich MD HEMATOLOGY ORDERABLES Final Res ult from Last 3 Months Insurance Care Teams Assistant Accounting Manager Relationship Specialty Start Date End Date Vijay Nolasco DO [address] [facility] [address] [place] [address] PCP - General Internal Medicine 03/29/24
--- OUTSIDE RECORDS SUMMARY | 2024-09-12 18:54 | XMS_ITS | Encounter Summary ---
Author Organization [facility] Address [address] [place] [address] Phone Care Team Providers Care Fluxer Name Role Phone Vijay Nolasco Primary Care Provider [phone] Encounter Details Date Type Department Care Team (Late st Contact Info) Description 01/26/2022 [facility] 1 [place] [address] Mychart, Generic Provider [address] [place] [address] Social History Tobacco Use Types Packs/Day Years [...] Ready to change Department associated with goal: [facility] Steps to achieve goal: [...] Ready to change Department associated with goal: [facility] Steps to achieve goal: [...] documented as of this encounter Care Teams Fluxer Relationship Specialty Start Date End Date Vijay Nolasco DO [address] [address] PCP - General Internal Medicine 07/15/20 documented as of this encounter
[2024-09-12 19:35] VITALS: BP 153/76; PULSE 87; RESP 18; O2SAT 100
== END 2024-09-12 19:37 | disposition home or self-care (01) ==
PROVIDERS: Registered Nurse; Emergency Provider Emergency Medicine; PCP Nurse Practitioner
DX: R19.7 Diarrhea, unspecified (principal); R11.2 Nausea with vomiting, unspecified; I10 Essential (primary) hypertension; E66.01 Morbid (severe) obesity due to excess calories; Z68.42 Body mass index [BMI] 45.0-49.9, adult; K58.0 Irritable bowel syndrome with diarrhea; L40.50 Arthropathic psoriasis, unspecified; L40.9 Psoriasis, unspecified; F41.9 Anxiety disorder, unspecified; F32.A Depression, unspecified; Z90.49 Acquired absence of other specified parts of digestive tract; Z79.899 Other long term (current) drug therapy; Z79.620 Long term (current) use of immunosuppressive biologic; R16.0 Hepatomegaly, not elsewhere classified
CPT/HCPCS: 36415; 74177; 80053; 81003; 83690; 85025; 99284; Q9967

== ENCOUNTER 2025-01-21 02:20 | Day surgery (SDC) | payer BC, SELFPAY ==
[2025-01-15 14:42] VITALS: BMI 54.8
--- NOTE | 2025-01-15 14:43 | PC.NURSE ---
Report to the Outpatient Waiting Room, entrance under the green pavilion located off [facility], at time _0930_ on date _[id number]_. Planned Procedure Time: _1130_.? Time changes happen often and if your time is changed the preop area will call you the afternoon before. - You and your visitor will be asked to self-screen and do not enter if you have any COVID symptoms. Please call surgeon if you need to reschedule. - A mask is optional within the hospital at this time. Patients may have clear liquids (water, carbonated beverages, clear teas, apple juice) until 3 hours prior to surgery with a maximum of 20 ounces. - No food from midnight until time of surgery and no smoking, or chewing tobacco (or any form of nicotine). No chewing gum, candy or mints. Take only the following medications with a SIP of water on the morning of surgery: ___None___ DO NOT STOP ANY OF YOUR OTHER PRESCRIPTION MEDICATIONS PRIOR TO SURGERY EXCEPT THE FOLLOWING Hold all vitamins and supplements for 3 days per anesthesiologist. Medications to discontinue per physician Date to take last knxs__[id number]____ Please no make-up, nail serbian, hairspray, perfume, deodorant, or body powder the day of surgery.? No jewelry (including any body piercings) or valuables the day of surgery, leave them at home.? Please take a shower or bath the night before, or the morning of, surgery with an antibacterial soap.? Wear comfortable, loose fitting clothing.? - Jewelry must be removed prior to entering the operating room.? Rings and piercings that are not removed may be cut off. - The hospital will not accept responsibility for valuables.? - Please leave all valuables, including medications, at home the day of surgery. If you are going home after surgery, a licensed hazmat truck driver must drive you home.? - NO public transportation without another adult if you receive anesthesia. - We recommend that an adult stay with you for 24 hours following discharge. - We also recommend that you do not drive, make important decision, drink alcoholic beverages, or take any drugs that were not prescribed by your health care provider for at least 24 hours after your discharge time. Follow any additional instructions given to you from your surgeon. Telephone instructions given to ___Drew__and asked if any additional questions and then verbalized understanding. Patient advised to call surgeon office or pre surgery nurse liaison [phone] if any additional questions.
[2025-01-21] VITALS (11 sets, daily range): BP systolic 120–156; BP diastolic 63–101; PULSE 63–87; RESP 12–24; TEMP 36.7; O2SAT 87–96
--- OUTSIDE RECORDS SUMMARY | 2025-01-21 02:22 | XMS_ITS | Encounter Summary ---
Author Organization [facility] Address [address] [place] [address] Phone Care Team Providers Care Sandblast Or Shotblast Equipment Tender Name Role Phone Vijay Nolasco Primary Care Provider [phone] Encounter Details Date Type Department Care Team (Late st Contact Info) Description 10/27/2021 Behavioral Health Patient Survey [facility] Behavioral Health Services 1 [place] [address] Mychart, Generic Provider [address] [place] [address] Social History Tobacco Use Types Packs/Day Years [...] Ready to change Department associated with goal: [facility] Steps to achieve [...] Ready to change Department associated with goal: [facility] Steps to achieve [...] documented as of this encounter Care Teams Sandblast Or Shotblast Equipment Tender Relationship Specialty Start Date End Date Vijay Nolasco DO [address] [address] PCP - General Internal Medicine 07/15/20 documented as of this encounter
--- OUTSIDE RECORDS SUMMARY | 2025-01-21 02:22 | XMS_ITS | Clinical Summary ---
[facility] Address [address] [place] [address] Phone Care Team Providers Care Airplane Pilot Photogrammetry Name Role Phone Vijay Nolasco Primary Care Provider [phone] Medications SERTRALINE HCL PO Take by mouth. [...] Immunization (1 - Male 3-dose series) 08/08/2015 Influenza Immunization (#1) 2025 SARS-COV-2 Immunization (3 - 2024- season) 2025 11/25/2020, 11/04/2020 Respiratory Syncytial Virus (RSV) Immunization [...] 45 min sessions, 1-2 times monthly Insurance [facility] Care Teams Airplane Pilot Photogrammetry Relationship Specialty Start Date End Date Vijay Nolasco DO [address] [facility] [address] [place] [address] PCP - General Internal Medicine 07/15/20
--- OUTSIDE RECORDS SUMMARY | 2025-01-21 02:22 | XMS_ITS | Encounter Summary ---
Author Organization [facility] Address [address] [place] [address] Phone Care Team Providers Care Divisional Merchandising Manager Name Role Phone Vijay Nolasco Primary Care Provider Encounter Details Date Type Department Care Team (Late st Contact Info) Description 12/22/2021 Behavior[facility] 1 [place] [address] Mychart, Generic Provider [address] [place] [address] Social History Tobacco Use Types Packs/Day Years [...] Ready to change Department associated with goal: [facility] Steps to achieve [...] Ready to change Department associated with goal: [facility] Steps to achieve [...] documented as of this encounter Care Teams Divisional Merchandising Manager Relationship Specialty Start Date End Date Vijay Nolasco DO [address] [address] PCP - General Internal Medicine 07/15/20 documented as of this encounter
--- OUTSIDE RECORDS SUMMARY | 2025-01-21 02:22 | XMS_ITS | Encounter Summary ---
Author Organization [facility] Address [address] [place] [address] Phone Care Team Providers Care Director Product Name Role Phone Vijay Nolasco Primary Care Provider [phone] Encounter Details Date Type Department Care Team (Late st Contact Info) Description 01/26/2022 [facility] 1 [place] [address] Mychart, Generic Provider [address] [place] [address] Social History Tobacco Use Types Packs/Day Years [...] as of this encounter Care Teams Director Product Relationship Specialty Start Date End Date Vijay Nolasco DO [address] [address] PCP - General Internal Medicine 07/15/20 documented as of this encounter
--- OUTSIDE RECORDS SUMMARY | 2025-01-21 02:22 | XMS_ITS | Clinical Summary ---
Author Organization [facility] Address [address] [address] [place] [address] Phone Care Team Providers Care Recruiting Team Lead Name Role Phone Vijay Nolasco DO Primary Care Provider [phone] Allergies Active Allergy Reactions Criticality Noted Date [...] Encounters Date Type Department Care Team Description 11/13/2024 External Device Data STL ABSTRACTION Provider, Abstract 11/01/2024 2:15 PM CDT Office Visit [facility] Oncology and Hematology - [place] [address] [place] [address] Jai Dietrich MD Iron deficiency anemia, unspecified iron deficiency anemia type (Primary Dx); Anemia due to vitamin B12 deficiency, unspecified B12 deficiency type 10/30/2024 External Device Data STL ABSTRACTION Provider, Abstract 10/22/2024 Orders Only [facility] Oncology and Hematology - [place] [address] [place] [address] Jai Dietrich MD from Last [...] Sign Reading Time Taken Comments Blood Pressure 145/77 11/01/2024 1:56 PM CDT Pt forgot to take bp meds Pulse 83 11/01/2024 1:54 PM CDT Temperature 36.5 C (97.7 F) 11/01/2024 1:54 PM CDT Respiratory Rate 16 11/01/2024 1:54 PM CDT Oxygen Saturation 96% 11/01/2024 1:5 4 PM CDT Inhaled Oxygen Concentration - - Weight 153.2 kg (337 lb 12.8 oz) 11/01/2024 1:54 PM CDT Height 172.7 cm (5' 8) 05/02/2023 9:51 AM WORK FORCE ADVISOR Body Mass Index 51.36 05/02/2023 9:51 AM WORK FORCE ADVISOR Plan of Treatment Upcoming Encounters Date Type Department Care Team (Late st Contact Info) Description 03/07/2025 1:00 PM CDT Office Visit [facility] Oncology and Hematology - [place] [address] [place] [address] Jai Dietrich MD [address] [facility] [address] [place] [address] Health Maintenance Due Date Last Done Comments HPV VACCINES (1 - Male 3-dose series) 08/08/2015 DTAP/TDAP/TD VACCINES (1 - Tdap) 08/08/2019 HEPATITIS B VACCINES (1 of 3 - 19+ 3-dose series) 07/15 INFLUENZA VACCINE (#1) 2024 Procedures Procedure Name Priority Date/Time Associated Diagnosis Comments BASIC METABOLIC PANEL Routine 10/22/2024 3:09 PM CDT CBC WITH AUTODIFFERENTIAL Routine 2024 12:26 PM CDT from Last 3 Months Results * BASIC METABOLIC PANEL (10/22/2024 3:09 PM CDT) Blood Jai Dietrich MD CHEMISTRY ORDERABLES Final Resu lt * CBC WITH AUTODIFFERENTIAL (10/22/2024 12:26 PM CDT) Blood us Jai Dietrich MD HEMATOLOGY ORDERABLES Final Res ult from Last 3 Months Insurance Care Teams Recruiting Team Lead Relationship Specialty Start Date End Date Vijay Nolasco DO [address] [facility] [address] [facility] [address] [place] [address] PCP - General Internal Medicine 03/29/24
[2025-01-21] MEDS: LACTATED RINGERS 1,000 ML 30 ML IV CONT (09:15)
[2025-01-21] MEDS: ACETAMINOPHEN 500 MG TABLET 1000 MG PO (09:25)
[2025-01-21 09:38] LABS: Anion Gap 6 mmol/L (4-12); Blood Urea Nitrogen 14 mg/dL (9-20); Calcium 8.5 mg/dL (8.4-10.2); Carbon Dioxide 27 mmol/L (22-30); Chloride 103 mmol/L (98-107); Estimated CRCL calculation 239 ml/min; Estimated Glomerular Filt Rate > 60; Glucose 103 mg/dL (65-110); Potassium 3.9 mmol/L (3.4-5.0); Sodium 136 mmol/L (137-145)
--- NOTE | 2025-01-21 10:14 | WPDANESEPPF ---
Anes - Initial Pre Proc Eval Procedure: Operation Date: 01/21/25 11:30 Proposed Procedures p Bilateral Nasal Endoscopy, Nasal Cauterization - Gilberto Rodríguez MD Date/Time: 01/21/25 10:14 Surgeon: Gilberto Rodríguez MD Pre Op Diagnosis: epistaxis Patient Data Age: 24 Gender: M Height: 1.73 m Weight: 167.2 kg Last Vital Signs Temp 36.7 C 01/21/25 08:38 Pulse 82 01/21/25 08:38 Resp 22 H 01/21/25 08:38 BP 131/73 01/21/25 08:38 Pulse Ox 95 01/21/25 08:38 O2 Del Method Room Air 01/21/25 08:38 Allergies Allergy/AdvReac Type Severity Reaction Status Date / Time vancomycin Allergy Intermediate SWELLING/ITCHING/ELIO Verified 01/21/25 08:59 SYNDROME Home Medications ?Medication ?Instructions ?Recorded ?Confirmed ?Type venlafaxine 150 mg 150 mg PO DAILY 12/12/20 01/21/25 History capsule,extended release 24 hr losartan 100 1 tablet PO DAILY #90 tabs 08/07/24 01/21/25 Rx mg-hydrochlorothiazide 12.5 mg tablet cyanocobalamin (vitamin B-12) 100 100 mcg PO HS 08/10/24 01/21/25 History mcg tablet (Vitamin B-12) amlodipine 10 mg tablet See Rx Instructions .Route 12/07/24 01/21/25 Rx .COMPLEX #90 tabs mupirocin 2 % topical ointment 1 applic topical QID #22 grams 01/10/25 01/15/25 Rx ([facility]) Laboratory Tests 01/21/25 09:06 Sodium 136 L mmol/L (137-145) Potassium 3.9 mmol/L (3.4-5.0) Chloride 103 mmol/L (98-107) Carbon Dioxide 27 mmol/L (22-30) Anion Gap 6 mmol/L (4-12) BUN 14 mg/dL (9-20) Creatinine 0.62 L mg/dL (0.7-1.3) Estim Creat Clear Calc 239 ml/min Estimated GFR > 60 (59 - ) Glucose 103 mg/dL (65-110) Calcium 8.5 mg/dL (8.4-10.2) Patient hx anesthesia problems: none Family hx anesthesia problems: none Results Review: All pre-operative results and documents have been reviewed as part of the pre-operative evaluation. [facility] Past Medical History Medical History Ingrown nail Psoriatic arthritis Irritable bowel syndrome with diarrhea Diarrhea Morbid obesity with BMI of 45.0-49.9, adult HTN (hypertension) Nasal obstruction Nasal folliculitis Anxiety Tinea corporis Psoriasis Morbid obesity Depression Surgical History Surgical History History of laparoscopic appendectomy 08/16/24 robotic assisted appendectomy, lysis of adhesions Dr. Lizarraga H/O sinus surgery Family History Family History Father Alcohol abuse by father Depression Hypertension Mother Depression Diabetes mellitus Glaucoma Foot ulcer Grandparent Depression Thyroid disorder Sibling , infant No problems noted. Social History Social History Smoking status: Never smoker Second hand tobacco smoke exposure: No Alcohol intake: never Substance use: never Substance use type: marijuana Other substance usage details: Once in awhile Last use: 07/23/24 Do You Feel Safe in your Home?: Yes Lack of Transportation: No Lack of Food: Never True Current Housing: I Have Housing Concerned About Future Housing: Decline to Answer Difficulty Paying Gas/Electric Bills: Decline to Answer Difficulty Paying for Meds: Decline to Answer Currently Unemployed: Decline to Answer Education: High School Diploma/GED Difficulty w/ Childcare or Family Care: No Living arrangements: with family Occupation/Education: unemployed Additional occupation/education comments: [employer] Gender identity (if verbalized by the patient): Male Spiritual care concerns: No Agree to blood products: Yes Anes - Eval Final PreProcedure Day of Procedure 01/21/25 10:14 Patient weight: super morbidly obese Heart: regular rate and rhythm Lungs: clear to auscultation Airway: Mallampati scale class III Neurological: alert and oriented Last oral intake: >/= 8 hours ASA classification: III Emergent: no Anesthetic plan: proceed Anesthesia type and monitoring: general ETT and standard monitoring Results Review: All pre-operative results and documents have been reviewed as part of the pre-operative evaluation. Informed Consent: The patient's anesthetic plan and its attendant risks and benefits were discussed with the patient/family/POA. Questions were solicited and answers provided to the satisfaction of the patient/family/POA.
--- NOTE | 2025-01-21 11:17 | WPDHPUPDATE1 ---
History and Physical Update Update Date/Time: 01/21/25 11:17 History and Physical has been reviewed, including an updated exam of the patient. There are NO changes in the patient's condition. Risks, benefits, and alternatives have been discussed and questions answered. Patient agrees to proceed with procedure.
[2025-01-21] MEDS: ceFAZolin 3 GM/D5W 100 ML 100 ML IVPB (11:49)
[2025-01-21] MEDS: OXYMETAZOLINE HCL 0.05% NAS 15 ML BTL (*BKC) 1 SPRAY NASAL (12:11)
[2025-01-21] MEDS: MUPIROCIN 2% OINT 22 GM TUBE 1 APPLIC XX (12:17)
--- NOTE | 2025-01-21 12:48 | P.OP_ITS ---
Procedure Note - Detailed Date of Procedure 01/21/25 Pre-op Diagnosis epistaxis Post-op Diagnosis Same Procedure Performed Bilateral nasal endoscopy, with left-sided complex cautery for epistaxis Surgeon Gilberto Rodríguez MD Anesthesia General Findings Several telangiectatic very large caliber vessels going in and out of the septal mucosa. No active bleeding the end the procedure. Minimal blood loss. Description of Procedure Patient identified consent verified the preoperative holding area. Patient brought operating. Time-out performed. General anesthesia induced endotracheal tube secured airway. Patient prepped draped position procedure confirmed 2nd time-out performed. Bilateral nasal endoscopy performed a 0 degree scope right- sided look pretty good left side has multiple plunging telangiectatic vessels arising from the floor. Afrin-soaked pledgets were utilized to control any bleeding throughout the procedure. Floor vessels were obliterated using Coblator on a low setting the coagulation function. As a crept up the septum I had to switch to very gentle more precise cautery using bipolar to setting of 10 in 15 because this patient had a previous septoplasty. Psycho not use the Coblator given the amount of an injury distributed. All the vessels were eliminated. Mupirocin placed over the entire operative site. That marked the end of my portion of procedure. Care the patient back to Anesthesiology. Blood loss 1 cc. I performed all dictated portions no complication. Patient taken to PACU. Multiple rounds of cautery in a complex fashion. Estimated Blood Loss 1 Drains No Packing No Pathology None sent Complications No immediate complications Condition Stable Disposition PACU [facility] Billing Surgery - Charge Forward: Surgery Billing
== END 2025-01-21 14:53 | disposition home or self-care (01) ==
PROVIDERS: Anesthesiology; PCP Nurse Practitioner; Visit Provider Otolaryngology
PROC: (CPT 31238; principal; 2025-01-21 11:30)
DX: R04.0 Epistaxis (principal); E66.01 Morbid (severe) obesity due to excess calories; Z68.43 Body mass index [BMI] 50.0-59.9, adult
CPT/HCPCS: 31238; 36415; 80048; A9270; J0690; J1100; J2250; J2405; J2704; J3010; J7040; J7120